=== PATIENT | male | born 1945 | race Caucasian/White ===

== ENCOUNTER 2019-05-19 09:46 | Emergency (ER) | payer OTHER ==
[~2019-05-19] VITALS: Ht 175.3 cm; Wt 90.7 kg
[~2019-05-19 09:46] MED LIST: AMLO10TA13; ASPI-404 PO; FUR40T PO; LISI-646 PO; POT20T PO
[2019-05-19 10:24] VITALS: BP 149/56
[2019-05-19] MEDS ORDERED: methylPREDNISolone SOD SUCC 125 MG/2 ML VL IV ONE (11:00)
[2019-05-19] MEDS ORDERED: EPINEPHrine HCL 1 MG/1 ML AMP SC ONE (11:00)
== END 2019-05-19 17:08 | disposition home or self-care (01) ==
LOC: ER 09:46
DX: T78.40XA Allergy, unspecified, initial encounter (principal); I10 Essential (primary) hypertension; E78.5 Hyperlipidemia, unspecified; M19.90 Unspecified osteoarthritis, unspecified site; F17.210 Nicotine dependence, cigarettes, uncomplicated; X58.XXXA Exposure to other specified factors, initial encounter

== ENCOUNTER 2020-05-24 09:11 | Emergency (ER) | payer OTHER ==
[~2020-05-24] VITALS: Ht 175.3 cm; Wt 93.0 kg
[~2020-05-24 09:11] MED LIST changes: +AMLO-496; -AMLO10TA13; -ASPI-404 PO; +ASPI-543 PO
[2020-05-24] MEDS ORDERED: cloNIDine HCL 0.1 MG TAB PO ONE (09:30)
[2020-05-24 10:17] LABS: Anion Gap 4 (5-15); Blood Urea Nitrogen 21 mg/dL (7-18); Calcium 7.9 mg/dL (8.5-10.1); Carbon Dioxide 25 mmol/L (21-32); Chloride 114 mmol/L (98-107); Glucose 103 mg/dL (74-106); Potassium 3.9 mmol/L (3.5-5.1); Sodium 143 mmol/L (136-145)
[2020-05-24 10:18] LABS: Basophils # (auto) 0 10 ^3/uL (0-0.2); Basophils % (auto) 0.5 % (0.0-2.0); Eosinophils # (auto) 0.4 10 ^3/uL (0-0.8); Eosinophils % (auto) 5.2 % (0.0-7.0); Hematocrit 37.9 % (41.0-53.0); Hemoglobin 12.4 g/dL (13.5-17.5); Lymphocytes # (auto) 1.1 10 ^3/uL (0.4-5.4); Mean Corpuscular Hemoglobin 27.7 pg (28.0-32.0); Mean Corpuscular Hgb Conc. 32.6 g/dL (32.0-36.0); Mean Corpuscular Volume 84.8 fL (80.0-100.0); Monocytes # (auto) 0.7 10 ^3/uL (0-1.3); Monocytes % (auto) 9.9 % (0.0-12.0); Neutrophils # (auto) 4.7 10 ^3/uL (1.6-8.6); Neutrophils % (auto) 68.4 % (37.0-80.0); Platelet Count (auto) 181 10^3/uL (140-450); Red Blood Cells 4.46 10^6/uL (4.5-5.90); Red Cell Distribution Width 16.8 % (11.8-14.3); White Blood Cell 6.8 10^3/uL (4.4-10.8)
[2020-05-24 10:23] LABS: Alanine Aminotransferase 38 U/L (16-61); Alkaline Phosphatase 64 U/L (45-117); Aspartate Aminotransferase 26 U/L (15-37); BUN/Creatinine Ratio 21.2; Bilirubin, Total 0.4 mg/dL (0.2-1.0); GFR African American 95 mL/min; GFR Non-African American 78 mL/min; Total Protein 7.3 g/dL (6.4-8.2)
[2020-05-24 11:33] VITALS: BP 169/54
== END 2020-05-24 12:33 | disposition home or self-care (01) ==
LOC: ER 09:11
DX: I16.0 Hypertensive urgency (principal); J18.9 Pneumonia, unspecified organism; F17.210 Nicotine dependence, cigarettes, uncomplicated; I10 Essential (primary) hypertension; E78.5 Hyperlipidemia, unspecified; Z79.82 Long term (current) use of aspirin; Z79.899 Other long term (current) drug therapy; Z20.822 Contact with and (suspected) exposure to COVID-19
CPT/HCPCS: 36415; 71045; 80053; 84484; 85025; 87426; 93005

== ENCOUNTER 2020-05-30 10:33 | Emergency (ER) | payer OTHER ==
[~2020-05-30] VITALS: Ht 175.3 cm; Wt 93.0 kg
[2020-05-30] MEDS ORDERED: cloNIDine HCL 0.1 MG TAB PO ONE ×2 (11:00)
[2020-05-30 11:08] LABS: Basophils # (auto) 0.1 10 ^3/uL (0-0.2); Basophils % (auto) 0.6 % (0.0-2.0); Eosinophils # (auto) 0.6 10 ^3/uL (0-0.8); Eosinophils % (auto) 5.9 % (0.0-7.0); Hematocrit 41.9 % (41.0-53.0); Hemoglobin 13.7 g/dL (13.5-17.5); Lymphocytes # (auto) 1.5 10 ^3/uL (0.4-5.4); Lymphocytes % (auto) 14.9 % (10.0-50.0); Mean Corpuscular Hemoglobin 28.1 pg (28.0-32.0); Mean Corpuscular Hgb Conc. 32.7 g/dL (32.0-36.0); Mean Corpuscular Volume 85.9 fL (80.0-100.0); Monocytes # (auto) 0.9 10 ^3/uL (0-1.3); Monocytes % (auto) 9.3 % (0.0-12.0); Neutrophils # (auto) 7.1 10 ^3/uL (1.6-8.6); Neutrophils % (auto) 69.3 % (37.0-80.0); Platelet Count (auto) 190 10^3/uL (140-450); Red Blood Cells 4.88 10^6/uL (4.5-5.90); Red Cell Distribution Width 17.6 % (11.8-14.3); White Blood Cell 10.2 10^3/uL (4.4-10.8)
[2020-05-30 11:27] LABS: Albumin 3.3 g/dL (3.4-5.0); Anion Gap 3 (5-15); BUN/Creatinine Ratio 21.8; Blood Urea Nitrogen 26 mg/dL (7-18); Calcium 8.6 mg/dL (8.5-10.1); Carbon Dioxide 27 mmol/L (21-32); Chloride 111 mmol/L (98-107); GFR African American 76 mL/min; GFR Non-African American 63 mL/min; Glucose 136 mg/dL (74-106); Potassium 3.8 mmol/L (3.5-5.1); Sodium 141 mmol/L (136-145)
[2020-05-30 11:32] LABS: Alanine Aminotransferase 38 U/L (16-61); Alkaline Phosphatase 68 U/L (45-117); Aspartate Aminotransferase 14 U/L (15-37); Bilirubin, Total 0.4 mg/dL (0.2-1.0); Total Protein 7.4 g/dL (6.4-8.2)
[2020-05-30 12:12] VITALS: BP 162/60
== END 2020-05-30 12:14 | disposition home or self-care (01) ==
LOC: ER 10:33
DX: I16.0 Hypertensive urgency (principal); I10 Essential (primary) hypertension; E78.5 Hyperlipidemia, unspecified; F17.210 Nicotine dependence, cigarettes, uncomplicated
CPT/HCPCS: 36415; 80053; 84484; 85025; 93005

== ENCOUNTER 2020-10-26 10:02 | Emergency (ER) | payer OTHER ==
[~2020-10-26] VITALS: Ht 175.3 cm; Wt 90.7 kg
[~2020-10-26 10:02] MED LIST changes: -LISI-646 PO; +LISI20TA28 PO
[2020-10-26 10:36] VITALS: BP 161/80
== END 2020-10-26 11:32 | disposition home or self-care (01) ==
LOC: ER 10:02
DX: J06.9 Acute upper respiratory infection, unspecified (principal); I10 Essential (primary) hypertension; F17.210 Nicotine dependence, cigarettes, uncomplicated
CPT/HCPCS: 71046

== ENCOUNTER 2021-04-10 03:33 | Emergency (ER) | payer OTHER ==
[~2021-04-10] VITALS: Ht 175.3 cm; Wt 93.0 kg
[2021-04-10] MEDS ORDERED: LISINOPRIL 10 MG TAB ONE (04:30)
[2021-04-10] MEDS ORDERED: LISINOPRIL 20 MG TAB PO ONE (05:00)
[2021-04-10 09:46] LABS: Basophils # (auto) 0 10 ^3/uL (0-0.2); Basophils % (auto) 0.7 % (0.0-2.0); Eosinophils # (auto) 0.3 10 ^3/uL (0-0.8); Eosinophils % (auto) 4.2 % (0.0-7.0); Hematocrit 39.6 % (41.0-53.0); Hemoglobin 12.9 g/dL (13.5-17.5); Lymphocytes # (auto) 1.2 10 ^3/uL (0.4-5.4); Lymphocytes % (auto) 18.9 % (10.0-50.0); Mean Corpuscular Hemoglobin 28.3 pg (28.0-32.0); Mean Corpuscular Hgb Conc. 32.6 g/dL (32.0-36.0); Monocytes # (auto) 0.7 10 ^3/uL (0-1.3); Monocytes % (auto) 10.5 % (0.0-12.0); Neutrophils # (auto) 4.2 10 ^3/uL (1.6-8.6); Neutrophils % (auto) 65.7 % (37.0-80.0); Nucleated Red Blood Cells % 0.1 %; Red Blood Cells 4.55 10^6/uL (4.5-5.90); Red Cell Distribution Width 14.6 % (11.8-14.3); White Blood Cell 6.4 10^3/uL (4.4-10.8)
[2021-04-10 10:04] LABS: Albumin 3.3 g/dL (3.4-5.0); Calcium 8.4 mg/dL (8.5-10.1); Potassium 3.9 mmol/L (3.5-5.1)
[2021-04-10 10:10] LABS: BUN/Creatinine Ratio 21.1; Bilirubin, Total 0.4 mg/dL (0.2-1.0); Total Protein 7.5 g/dL (6.4-8.2)
[2021-04-10] MEDS ORDERED: AML5T PO (12:39)
[2021-04-10 12:57] VITALS: BP 138/62
== END 2021-04-10 14:47 | disposition home or self-care (01) ==
LOC: ER 03:33 → EDUNIT# 03:33 → EDBD 03:33 → ER 12:59
DX: I16.0 Hypertensive urgency (principal); I10 Essential (primary) hypertension; Z20.822 Contact with and (suspected) exposure to COVID-19; F17.210 Nicotine dependence, cigarettes, uncomplicated; E78.5 Hyperlipidemia, unspecified
CPT/HCPCS: 36415; 70450; 71045; 80053; 84484; 85025; 87426; 93005

== ENCOUNTER 2021-04-17 11:49 | Inpatient (IN) | payer OTHER ==
[~2021-04-17] VITALS: Ht 175.3 cm; Wt 95.3 kg
[~2021-04-17 11:49] MED LIST changes: +AML5T PO
[2021-04-17] MEDS ORDERED: cloNIDine HCL 0.1 MG TAB ONE (11:54)
[2021-04-17] MEDS ORDERED: cloNIDine HCL 0.1 MG TAB PO ONE (12:00)
[2021-04-17 12:36] LABS: Basophils # (auto) 0.1 10 ^3/uL (0-0.2); Basophils % (auto) 0.5 % (0.0-2.0); Eosinophils # (auto) 0.2 10 ^3/uL (0-0.8); Eosinophils % (auto) 2.2 % (0.0-7.0); Hematocrit 37.1 % (41.0-53.0); Hemoglobin 12.1 g/dL (13.5-17.5); Lymphocytes # (auto) 1.9 10 ^3/uL (0.4-5.4); Lymphocytes % (auto) 17.7 % (10.0-50.0); Mean Corpuscular Hemoglobin 28.7 pg (28.0-32.0); Mean Corpuscular Hgb Conc. 32.7 g/dL (32.0-36.0); Mean Corpuscular Volume 87.8 fL (80.0-100.0); Monocytes # (auto) 0.8 10 ^3/uL (0-1.3); Monocytes % (auto) 7.8 % (0.0-12.0); Neutrophils # (auto) 7.7 10 ^3/uL (1.6-8.6); Neutrophils % (auto) 71.8 % (37.0-80.0); Nucleated Red Blood Cells % 0.2 %; Red Blood Cells 4.22 10^6/uL (4.5-5.90); Red Cell Distribution Width 14.8 % (11.8-14.3); White Blood Cell 10.7 10^3/uL (4.4-10.8)
[2021-04-17 12:52] LABS: Albumin 3.1 g/dL (3.4-5.0); Calcium 8.2 mg/dL (8.5-10.1); Magnesium 2.9 mg/dL (1.6-2.6); Potassium 3.3 mmol/L (3.5-5.1)
[2021-04-17 12:55] LABS: BUN/Creatinine Ratio 25.2; Bilirubin, Total 0.4 mg/dL (0.2-1.0); Total Protein 6.4 g/dL (6.4-8.2)
[2021-04-17] MEDS ORDERED: MORPHINE SULFATE INJECTION 2 MG/ML SYRG IV PRN ×3 (15:15→18:00)
[2021-04-17] MEDS ORDERED: POTASSIUM CHL 20 Meq TABLET PO ONE (15:15)
[2021-04-17] MEDS ORDERED: NITROGLYCERIN 0.4 MG SL TAB SL PRN ×2 (15:15→18:00)
[2021-04-17] MEDS ORDERED: IPRATROPIUM BROM 0.5 MG/2.5ML INH SOL NEB ONE (17:45)
[2021-04-17] MEDS ORDERED: NIFEdipine ER 30 MG TAB PO ONE (17:45)
[2021-04-17] MEDS ORDERED: methylPREDNISolone SOD SUCC 125 MG/2 ML VL IV ONE (17:45)
[2021-04-17] MEDS ORDERED: ALBUTEROL SULF 2.5 MG/0.5ML(0.5%) NEB SOLN NEB ONE (17:45)
[2021-04-17] MEDS ORDERED: AZITHROMYCIN 500MG/ 250ML 250 ML IV ONE (17:45)
[2021-04-17] MEDS ORDERED: BENAZEPRIL HCL 10 MG TAB PO ONE (17:45)
[2021-04-17] MEDS ORDERED: ENOXAPARIN SOD 40 MG/0.4 ML SYRINGE SC ONE (17:45)
[2021-04-17] MEDS ORDERED: ISOSORBIDE MONONITRATE ER 60 MG TAB PO ONE (18:00)
[2021-04-17] MEDS ORDERED: LORazepam 0.5 MG TAB PO PRN (18:00)
[2021-04-17] MEDS ORDERED: METOCLOPRAMIDE HCL 5MG/ml INJ 2ml VIAL IV PRN (18:00)
[2021-04-17] MEDS ORDERED: HYDROcodone-ACET 5/325MG TAB PO PRN (18:00)
[2021-04-17] MEDS ORDERED: ACETAMINOPHEN 325 MG TAB PO PRN (18:00)
[2021-04-17] MEDS ORDERED: DOCUSATE SOD 100 MG CAP PO PRN (18:00)
[2021-04-17 21:16] LABS: Cholesterol 130 mg/dL (< 200)
[2021-04-17 21:20] LABS: HDL Cholesterol 58 mg/dL (40-59); LDL Cholesterol 56 mg/dL (< 100); Triglycerides 122 mg/dL (< 150)
[2021-04-17] MEDS: FUROSEMIDE 20 MG/2 ML VIAL IV SCH (21:22)
[2021-04-17] MEDS: POTASSIUM CHL 20 Meq TABLET PO SCH (21:23)
[2021-04-17] MEDS: methylPREDNISolone SOD SUCC 40 MG/ML VL IV SCH (21:23)
[2021-04-17] MEDS: ATORVASTATIN 20 MG TAB PO SCH (21:23)
[2021-04-17] MEDS: IPRATROPIUM BROM 0.5 MG/2.5ML INH SOL NEB SCH (22:00)
[2021-04-18] MEDS: IPRATROPIUM BROM 0.5 MG/2.5ML INH SOL NEB SCH ×4 (02:00→14:38)
[2021-04-18] MEDS: ALBUTEROL SULF 2.5 MG/0.5ML(0.5%) NEB SOLN NEB PRN ×3 (06:29→14:38)
[2021-04-18] MEDS: methylPREDNISolone SOD SUCC 40 MG/ML VL IV SCH ×3 (08:53→21:49)
[2021-04-18] MEDS: FUROSEMIDE 20 MG/2 ML VIAL IV SCH ×2 (08:53→18:16)
[2021-04-18 09:33] LABS: Basophils # (auto) 0 10 ^3/uL (0-0.2); Basophils % (auto) 0.3 % (0.0-2.0); Eosinophils # (auto) 0 10 ^3/uL (0-0.8); Hematocrit 41.3 % (41.0-53.0); Hemoglobin 13.6 g/dL (13.5-17.5); Lymphocytes # (auto) 0.6 10 ^3/uL (0.4-5.4); Lymphocytes % (auto) 6.5 % (10.0-50.0); Mean Corpuscular Hemoglobin 28.4 pg (28.0-32.0); Mean Corpuscular Hgb Conc. 32.8 g/dL (32.0-36.0); Mean Corpuscular Volume 86.7 fL (80.0-100.0); Monocytes # (auto) 0.1 10 ^3/uL (0-1.3); Monocytes % (auto) 1.4 % (0.0-12.0); Neutrophils # (auto) 8.6 10 ^3/uL (1.6-8.6); Neutrophils % (auto) 91.8 % (37.0-80.0); Nucleated Red Blood Cells % 0.1 %; Red Blood Cells 4.77 10^6/uL (4.5-5.90); Red Cell Distribution Width 15.1 % (11.8-14.3); White Blood Cell 9.3 10^3/uL (4.4-10.8)
[2021-04-18 09:58] LABS: INR 0.99 (0.9-1.15); Partial Thromboplastin Time 26.8 sec (23.6-33.0)
[2021-04-18 10:01] LABS: Potassium 3.9 mmol/L (3.5-5.1)
[2021-04-18 10:02] LABS: % Iron Saturation 10.4 % (20-55)
[2021-04-18 10:15] LABS: Albumin 3.4 g/dL (3.4-5.0); BUN/Creatinine Ratio 25.2; Bilirubin, Total 0.8 mg/dL (0.2-1.0); Calcium 8.7 mg/dL (8.5-10.1); Magnesium 3.2 mg/dL (1.6-2.6); Phosphorus 4.2 mg/dL (2.5-4.90); Uric Acid 6.8 mg/dL (3.5-7.2)
[2021-04-18] MEDS: ISOSORBIDE MONONITRATE ER 60 MG TAB PO SCH (10:45)
[2021-04-18] MEDS: POTASSIUM CHL 20 Meq TABLET PO SCH (10:45)
[2021-04-18] MEDS: ASPirin 81 mg TAB PO SCH (10:45)
[2021-04-18] MEDS: NIFEdipine ER 30 MG TAB PO SCH (10:46)
[2021-04-18] MEDS: BENAZEPRIL HCL 10 MG TAB PO SCH (10:46)
[2021-04-18] MEDS: ENOXAPARIN SOD 40 MG/0.4 ML SYRINGE SC SCH (10:47)
[2021-04-18] MEDS: AZITHROMYCIN 500MG/ 250ML 250 ML IV SCH (11:02)
[2021-04-18] MEDS ORDERED: IPRATROPIUM BROM 0.5 MG/2.5ML INH SOL NEB PRN (18:00)
[2021-04-18] MEDS ORDERED: cloNIDine HCL 0.1 MG TAB PO PRN (18:30)
[2021-04-18] MEDS: ATORVASTATIN 20 MG TAB PO SCH (21:49)
[2021-04-18 23:10] VITALS: BP 151/65
[2021-04-19] MEDS ORDERED: HYDR10TA26 PO (00:27)
[2021-04-19] MEDS ORDERED: LISI40TA11 PO (00:27)
[2021-04-19] MEDS ORDERED: CHOL20007 PO (00:27)
[2021-04-19] MEDS ORDERED: ALBU2TAB4 INH (00:27)
[2021-04-19] MEDS ORDERED: OMEP20TA PO (00:27)
[2021-04-19] MEDS ORDERED: METO25TA5 PO (00:27)
[2021-04-19] MEDS ORDERED: ASPI325T4 PO (00:27)
[2021-04-19] MEDS ORDERED: BUSP10TA31 PO (00:27)
[2021-04-19] MEDS ORDERED: HYDR25TA5 PO (00:27)
[2021-04-19 00:33] LABS: Amphetamine Screen, Urine NEGATIVE (NEGATIVE); Barbiturate Scree,Urine NEGATIVE (NEGATIVE); Benzodiazephine Screen, Urine NEGATIVE (NEGATIVE); Cannabinoid Screen, Urine NEGATIVE (NEGATIVE); Cocaine Screen, Urine NEGATIVE (NEGATIVE); Opiate Scree,Urine NEGATIVE (NEGATIVE); Phencyclidine Screen, Urine NEGATIVE (NEGATIVE)
[2021-04-19 00:37] LABS: Urine Bacteria MANY /hpf (None Seen); Urine Blood Negative /uL (Negative); Urine Mucus FEW (None Seen); Urine Specific Gravity 1.014 (1.001-1.035); Urine Sperm PRESENT /hpf (None Seen); Urine WBC 4 /hpf (0 - 3)
[2021-04-19] MEDS: methylPREDNISolone SOD SUCC 40 MG/ML VL IV SCH ×2 (05:18→14:00)
[2021-04-19] MEDS: FUROSEMIDE 20 MG/2 ML VIAL IV SCH (05:19)
[2021-04-19 05:35] VITALS: BP 149/77
[2021-04-19 07:45] LABS: BUN/Creatinine Ratio 33.6; Calcium 8.6 mg/dL (8.5-10.1); Magnesium 2.5 mg/dL (1.6-2.6); Potassium 4.4 mmol/L (3.5-5.1)
[2021-04-19] MEDS ORDERED: POTASSIUM CHL 20 Meq TABLET PO SCH (10:00)
[2021-04-19] MEDS: BENAZEPRIL HCL 10 MG TAB PO SCH (10:12)
[2021-04-19] MEDS: NIFEdipine ER 30 MG TAB PO SCH (10:13)
[2021-04-19] MEDS: AZITHROMYCIN 500MG/ 250ML 250 ML IV SCH (10:14)
[2021-04-19] MEDS: ASPirin 81 mg TAB PO SCH (10:14)
[2021-04-19] MEDS: ENOXAPARIN SOD 40 MG/0.4 ML SYRINGE SC SCH (10:14)
[2021-04-19] MEDS: ISOSORBIDE MONONITRATE ER 60 MG TAB PO SCH ×2 (10:14→12:03)
[2021-04-19 10:32] VITALS: BP 152/75
[2021-04-19] MEDS ORDERED: NIFEdipine ER 30 MG TAB PO ONE (11:00)
[2021-04-19] MEDS ORDERED: PRED10TA PO (12:57)
[2021-04-19] MEDS ORDERED: PRED20TA2 PO (12:57)
[2021-04-19] MEDS ORDERED: AZIT250T PO (12:57)
[2021-04-19] MEDS ORDERED: PRE5T PO (12:57)
[2021-04-19 13:00] VITALS: BP 140/73
[2021-04-19] MEDS ORDERED: ERGOCALCIFEROL 50,000 UNIT(1.25MG) CAP PO SCH (13:00)
[2021-04-19 15:30] VITALS: BP 140/73
[2021-04-20] MEDS ORDERED: NIFEdipine ER 30 MG TAB PO SCH (10:00)
== END 2021-04-19 16:30 | disposition home or self-care (01) | DRG 291 ==
LOC: ER 11:49 → TELE 15:54 → TELE-CENTR 04-18 20:45
PROVIDERS: ADMIT Hospitalist; ATTEND Internal Medicine
DX: I11.0 Hypertensive heart disease with heart failure (principal); J96.20 Acute and chronic respiratory failure, unspecified whether with hypoxia or hypercapnia; I50.33 Acute on chronic diastolic (congestive) heart failure; J44.1 Chronic obstructive pulmonary disease with (acute) exacerbation; I16.1 Hypertensive emergency; J20.9 Acute bronchitis, unspecified; E66.01 Morbid (severe) obesity due to excess calories; D64.9 Anemia, unspecified; E78.5 Hyperlipidemia, unspecified; F17.210 Nicotine dependence, cigarettes, uncomplicated; M19.90 Unspecified osteoarthritis, unspecified site; Z86.73 Personal history of transient ischemic attack (TIA), and cerebral infarction without residual deficits; Z91.19 Patient's noncompliance with other medical treatment and regimen; Z68.31 Body mass index [BMI] 31.0-31.9, adult; Z20.822 Contact with and (suspected) exposure to COVID-19
CPT/HCPCS: 36415; 71045; 80048; 80053; 80061; 80307; 81001; 82306; 82728; 83036; 83540; 83550; 83735; 83880; 84100; 84443; 84484; 84550; 85025; 85379; 85610; 85730; 87040; 87086; 87426; 93005; 93306; 94640; 96365; 96375; 99291; G0378

== ENCOUNTER 2022-02-19 12:22 | Emergency (ER) | payer OTHER ==
[~2022-02-19] VITALS: Ht 175.3 cm; Wt 102.0 kg
[~2022-02-19 12:22] MED LIST changes: +ALBU2TAB4 INH; -AML5T PO; -AMLO-496; +AZIT250T PO; +BUSP10TA31 PO; +CHOL20007 PO; +HYDR10TA26 PO; +HYDR25TA5 PO; +METO25TA5 PO; +OMEP20TA PO; +PRE5T PO; +PRED10TA PO; +PRED20TA2 PO
[2022-02-19 13:01] VITALS: BP 156/78
== END 2022-02-19 16:14 | disposition left against medical advice (07) ==
LOC: ER 12:22
DX: R22.42 Localized swelling, mass and lump, left lower limb (principal); J44.9 Chronic obstructive pulmonary disease, unspecified; E78.5 Hyperlipidemia, unspecified; F17.210 Nicotine dependence, cigarettes, uncomplicated; I11.0 Hypertensive heart disease with heart failure; I50.9 Heart failure, unspecified; Z86.73 Personal history of transient ischemic attack (TIA), and cerebral infarction without residual deficits; Z79.82 Long term (current) use of aspirin; Z79.2 Long term (current) use of antibiotics; Z79.899 Other long term (current) drug therapy

== ENCOUNTER 2022-05-13 09:43 | Inpatient (IN) | payer MEDICARE, MEDICAID ==
[~2022-05-13] VITALS: Ht 175.3 cm; Wt 105.0 kg
[2022-05-13 10:31] LABS: Basophils # (auto) 0 10 ^3/uL (0-0.2); Basophils % (auto) 0.5 % (0.0-2.0); Eosinophils # (auto) 0.4 10 ^3/uL (0-0.8); Eosinophils % (auto) 3.8 % (0.0-7.0); Hematocrit 34.6 % (41.0-53.0); Hemoglobin 10.9 g/dL (13.5-17.5); Lymphocytes # (auto) 1.6 10 ^3/uL (0.4-5.4); Lymphocytes % (auto) 17.1 % (10.0-50.0); Mean Corpuscular Hemoglobin 26.1 pg (28.0-32.0); Mean Corpuscular Hgb Conc. 31.6 g/dL (32.0-36.0); Mean Corpuscular Volume 82.8 fL (80.0-100.0); Monocytes # (auto) 0.7 10 ^3/uL (0-1.3); Monocytes % (auto) 7.9 % (0.0-12.0); Neutrophils # (auto) 6.5 10 ^3/uL (1.6-8.6); Neutrophils % (auto) 70.7 % (37.0-80.0); Nucleated Red Blood Cells % 0.1 %; Red Blood Cells 4.19 10^6/uL (4.5-5.90); Red Cell Distribution Width 16.3 % (11.8-14.3); White Blood Cell 9.3 10^3/uL (4.4-10.8)
[2022-05-13 10:39] LABS: Albumin 3.1 g/dL (3.4-5.0); BUN/Creatinine Ratio 16.8; Calcium 8.6 mg/dL (8.5-10.1); Potassium 4.5 mmol/L (3.5-5.1)
[2022-05-13 10:42] LABS: Bilirubin, Total 0.6 mg/dL (0.2-1.0); Total Protein 7.2 g/dL (6.4-8.2)
[2022-05-13] MEDS ORDERED: FUROSEMIDE 40 MG/4 ML VIAL IV ONE (11:00)
[2022-05-13] MEDS ORDERED: cloNIDine HCL 0.1 MG TAB PO ONE (11:00)
[2022-05-13] MEDS: methylPREDNISolone SOD SUCC 40 MG/ML VL IV SCH ×2 (14:53→22:54)
[2022-05-13] MEDS ORDERED: hydrALAZINE HCL 20 MG/ML VL IV PRN (16:00)
[2022-05-13] MEDS ORDERED: ONDANSETRON HCL 4 MG/2 ML VIAL IV PRN (16:15)
[2022-05-13] MEDS ORDERED: DOCUSATE SOD 100 MG CAP PO PRN (16:15)
[2022-05-13] MEDS ORDERED: ACETAMINOPHEN 325 MG TAB PO PRN (16:15)
[2022-05-13] MEDS: ALBUTEROL SULF 2.5 MG/0.5ML(0.5%) NEB SOLN NEB SCH ×2 (18:00→18:11)
[2022-05-13] MEDS: IPRATROPIUM BROM 0.5 MG/2.5ML INH SOL NEB SCH ×2 (18:00→18:10)
[2022-05-13] MEDS ORDERED: ALBUTEROL MEDNEB 2.5 mg/3ml NEB ONE ×2 (18:07→23:49)
[2022-05-13 19:00] VITALS: BP 152/56
[2022-05-13] MEDS: HCTZ 25 MG TAB PO SCH (19:30)
[2022-05-13] MEDS: LISINOPRIL 20 MG TAB PO SCH (19:31)
[2022-05-13] MEDS: FUROSEMIDE 40 MG/4 ML VIAL IV SCH (22:54)
[2022-05-13] MEDS: SODIUM CHLOR 0.9% PF (SALINE LOCK) 10ML VIAL/SYR IV SCH (22:54)
[2022-05-13] MEDS: busPIRone HCL 10 MG TAB PO SCH (22:55)
[2022-05-13] MEDS: hydrALAZINE HCL 10 MG TAB PO SCH (22:55)
[2022-05-13] MEDS: METOPROLOL TARTRATE 25 MG TAB PO SCH (22:55)
[2022-05-14] MEDS: IPRATROPIUM BROM 0.5 MG/2.5ML INH SOL NEB SCH ×4 (00:20→18:43)
[2022-05-14] MEDS: ALBUTEROL SULF 2.5 MG/0.5ML(0.5%) NEB SOLN NEB SCH ×4 (00:20→18:43)
[2022-05-14 03:53] LABS: Urine Bacteria NONE SEEN /hpf (None Seen); Urine Blood Negative /uL (Negative); Urine Specific Gravity 1.034 (1.001-1.035); Urine WBC <1 /hpf (0 - 3)
[2022-05-14] MEDS ORDERED: HYDROcodone-ACET 5/325MG TAB PO PRN (04:30)
[2022-05-14] MEDS ORDERED: ALBUTEROL MEDNEB 2.5 mg/3ml NEB ONE ×3 (05:30→18:17)
[2022-05-14] MEDS: hydrALAZINE HCL 10 MG TAB PO SCH ×3 (06:06→23:19)
[2022-05-14] MEDS: SODIUM CHLOR 0.9% PF (SALINE LOCK) 10ML VIAL/SYR IV SCH ×2 (06:06→13:32)
[2022-05-14] MEDS: methylPREDNISolone SOD SUCC 40 MG/ML VL IV SCH ×3 (06:06→23:19)
[2022-05-14] MEDS ORDERED: AZITHROMYCIN 500MG/ 250ML 250 ML IV SCH (10:00)
[2022-05-14] MEDS: busPIRone HCL 10 MG TAB PO SCH ×2 (10:34→23:20)
[2022-05-14] MEDS: cefTRIAXone 1GM/50ML D5W 50 ML IV SCH (10:34)
[2022-05-14] MEDS: CHOLECALCIFEROL (VITD3) 2,000 UNIT CAP/TAB PO SCH (10:35)
[2022-05-14] MEDS: HCTZ 25 MG TAB PO SCH (10:35)
[2022-05-14] MEDS: FUROSEMIDE 40 MG/4 ML VIAL IV SCH (10:35)
[2022-05-14] MEDS: LISINOPRIL 20 MG TAB PO SCH (10:36)
[2022-05-14] MEDS: PANTOPRAZOLE 40 MG TAB PO SCH (10:36)
[2022-05-14] MEDS: METOPROLOL TARTRATE 25 MG TAB PO SCH ×2 (10:36→23:20)
[2022-05-14] MEDS: ASPirin-EC 81 mg tab PO SCH (10:36)
[2022-05-14] MEDS ORDERED: NIFEdipine ER 30 MG TAB PO ONE (12:45)
[2022-05-14 23:15] VITALS: BP 148/48
[2022-05-14] MEDS: DOXYCYCLINE 100 MG TAB/CAP PO SCH (23:20)
[2022-05-15] MEDS ORDERED: ALBUTEROL MEDNEB 2.5 mg/3ml NEB ONE ×2 (00:17→05:48)
[2022-05-15] MEDS: IPRATROPIUM BROM 0.5 MG/2.5ML INH SOL NEB SCH ×6 (00:19→18:00)
[2022-05-15] MEDS: ALBUTEROL SULF 2.5 MG/0.5ML(0.5%) NEB SOLN NEB SCH ×3 (00:19→06:30)
[2022-05-15] MEDS: SODIUM CHLOR 0.9% PF (SALINE LOCK) 10ML VIAL/SYR IV SCH ×4 (00:48→22:00)
[2022-05-15 05:00] VITALS: BP 139/52
[2022-05-15] MEDS: methylPREDNISolone SOD SUCC 40 MG/ML VL IV SCH ×2 (05:28→14:30)
[2022-05-15] MEDS: hydrALAZINE HCL 10 MG TAB PO SCH ×3 (05:29→22:44)
[2022-05-15 06:18] LABS: Basophils # (auto) 0 10 ^3/uL (0-0.2); Basophils % (auto) 0.1 % (0.0-2.0); Eosinophils # (auto) 0 10 ^3/uL (0-0.8); Lymphocytes # (auto) 0.6 10 ^3/uL (0.4-5.4); Mean Corpuscular Hgb Conc. 31.6 g/dL (32.0-36.0); Monocytes # (auto) 0.4 10 ^3/uL (0-1.3)
[2022-05-15 06:21] LABS: Hematocrit 33.8 % (41.0-53.0); Hemoglobin 10.7 g/dL (13.5-17.5); Lymphocytes % (auto) 4.1 % (10.0-50.0); Mean Corpuscular Hemoglobin 25.8 pg (28.0-32.0); Mean Corpuscular Volume 81.4 fL (80.0-100.0); Monocytes % (auto) 2.5 % (0.0-12.0); Neutrophils # (auto) 14.1 10 ^3/uL (1.6-8.6); Neutrophils % (auto) 93.3 % (37.0-80.0); Red Blood Cells 4.15 10^6/uL (4.5-5.90); Red Cell Distribution Width 16.6 % (11.8-14.3); White Blood Cell 15.1 10^3/uL (4.4-10.8)
[2022-05-15 06:35] LABS: BUN/Creatinine Ratio 21.6; Calcium 8.4 mg/dL (8.5-10.1); Magnesium 2.5 mg/dL (1.6-2.6); Phosphorus 5.7 mg/dL (2.5-4.90); Potassium 4.1 mmol/L (3.5-5.1)
[2022-05-15 09:00] VITALS: BP 150/56
[2022-05-15] MEDS ORDERED: FUROSEMIDE 20 MG/2 ML VIAL IV SCH (10:00)
[2022-05-15] MEDS: ALBUTEROL MEDNEB 2.5 mg/3ml NEB NEB SCH ×3 (11:17→18:00)
[2022-05-15] MEDS: DOXYCYCLINE 100 MG TAB/CAP PO SCH ×2 (11:31→22:43)
[2022-05-15] MEDS: ENOXAPARIN SOD 40 MG/0.4 ML SYRINGE SC SCH (11:35)
[2022-05-15] MEDS: CHOLECALCIFEROL (VITD3) 2,000 UNIT CAP/TAB PO SCH (11:35)
[2022-05-15] MEDS: NIFEdipine ER 30 MG TAB PO SCH (11:35)
[2022-05-15] MEDS: busPIRone HCL 10 MG TAB PO SCH ×2 (11:35→22:49)
[2022-05-15] MEDS: PANTOPRAZOLE 40 MG TAB PO SCH (11:35)
[2022-05-15] MEDS: ASPirin-EC 81 mg tab PO SCH (11:35)
[2022-05-15] MEDS: cefTRIAXone 1GM/50ML D5W 50 ML IV SCH (11:36)
[2022-05-15] MEDS: METOPROLOL TARTRATE 25 MG TAB PO SCH ×2 (11:37→22:44)
[2022-05-15 13:00] VITALS: BP_SYST 150; BP_SYST 161; BP_DIAS 67; BP_DIAS 71
[2022-05-15 14:00] VITALS: BP 161/71
[2022-05-15 21:30] VITALS: BP 116/65
[2022-05-16 05:00] VITALS: BP 136/58
[2022-05-16] MEDS: SODIUM CHLOR 0.9% PF (SALINE LOCK) 10ML VIAL/SYR IV SCH ×2 (05:21→14:00)
[2022-05-16] MEDS: hydrALAZINE HCL 10 MG TAB PO SCH ×2 (05:21→14:00)
[2022-05-16] MEDS: IPRATROPIUM BROM 0.5 MG/2.5ML INH SOL NEB SCH ×3 (06:00→12:00)
[2022-05-16] MEDS: ALBUTEROL MEDNEB 2.5 mg/3ml NEB NEB SCH ×3 (06:00→12:00)
[2022-05-16 06:59] LABS: Calcium 8.4 mg/dL (8.5-10.1); Potassium 4.1 mmol/L (3.5-5.1)
[2022-05-16 08:05] VITALS: BP 156/62
[2022-05-16] MEDS: DOXYCYCLINE 100 MG TAB/CAP PO SCH (09:40)
[2022-05-16] MEDS: ASPirin-EC 81 mg tab PO SCH (09:40)
[2022-05-16] MEDS: METOPROLOL TARTRATE 25 MG TAB PO SCH (09:41)
[2022-05-16] MEDS: cefTRIAXone 1GM/50ML D5W 50 ML IV SCH (09:41)
[2022-05-16] MEDS: CHOLECALCIFEROL (VITD3) 2,000 UNIT CAP/TAB PO SCH (09:41)
[2022-05-16] MEDS: busPIRone HCL 10 MG TAB PO SCH (09:41)
[2022-05-16] MEDS: NIFEdipine ER 30 MG TAB PO SCH (09:41)
[2022-05-16] MEDS: PANTOPRAZOLE 40 MG TAB PO SCH (09:42)
[2022-05-16] MEDS: ENOXAPARIN SOD 40 MG/0.4 ML SYRINGE SC SCH (09:42)
[2022-05-16 12:00] VITALS: BP 144/49
== END 2022-05-16 18:20 | disposition left against medical advice (07) | DRG 291 ==
LOC: ER 09:43 → TELE 16:14 → TELE-WESTW 05-14 22:15
PROVIDERS: ADMIT Internal Medicine; ATTEND Internal Medicine
DX: I11.0 Hypertensive heart disease with heart failure (principal); I50.43 Acute on chronic combined systolic (congestive) and diastolic (congestive) heart failure; J96.01 Acute respiratory failure with hypoxia; E44.1 Mild protein-calorie malnutrition; J44.1 Chronic obstructive pulmonary disease with (acute) exacerbation; N39.0 Urinary tract infection, site not specified; J91.8 Pleural effusion in other conditions classified elsewhere; I16.0 Hypertensive urgency; R91.8 Other nonspecific abnormal finding of lung field; Z20.822 Contact with and (suspected) exposure to COVID-19; E66.9 Obesity, unspecified; Z53.29 Procedure and treatment not carried out because of patient's decision for other reasons; Z68.34 Body mass index [BMI] 34.0-34.9, adult; Z79.899 Other long term (current) drug therapy; Z82.49 Family history of ischemic heart disease and other diseases of the circulatory system; Z83.3 Family history of diabetes mellitus; Z87.891 Personal history of nicotine dependence; Z86.73 Personal history of transient ischemic attack (TIA), and cerebral infarction without residual deficits
CPT/HCPCS: 36415; 71045; 71275; 80048; 80053; 81001; 82306; 83735; 83880; 84100; 84484; 85025; 85379; 87426; 93005; 93306; 93970; 94640; 96374; G0378; J0696

== ENCOUNTER 2022-05-27 10:26 | Inpatient (IN) | payer MEDICARE, MEDICAID ==
[~2022-05-27] VITALS: Ht 165.1 cm; Wt 106.3 kg
[2022-05-27 11:03] LABS: Basophils # (auto) 0.1 10 ^3/uL (0-0.2); Eosinophils # (auto) 0.2 10 ^3/uL (0-0.8); Lymphocytes # (auto) 1.2 10 ^3/uL (0.4-5.4)
[2022-05-27 11:05] LABS: Basophils % (auto) 0.5 % (0.0-2.0); Eosinophils % (auto) 1.5 % (0.0-7.0); Hematocrit 32.8 % (41.0-53.0); Hemoglobin 10.6 g/dL (13.5-17.5); Lymphocytes % (auto) 9.4 % (10.0-50.0); Mean Corpuscular Hemoglobin 26.5 pg (28.0-32.0); Mean Corpuscular Hgb Conc. 32.3 g/dL (32.0-36.0); Mean Corpuscular Volume 82.1 fL (80.0-100.0); Monocytes # (auto) 0.8 10 ^3/uL (0-1.3); Monocytes % (auto) 6.4 % (0.0-12.0); Neutrophils # (auto) 10.5 10 ^3/uL (1.6-8.6); Neutrophils % (auto) 82.2 % (37.0-80.0); Nucleated Red Blood Cells % 0.3 %; Red Cell Distribution Width 17.2 % (11.8-14.3); White Blood Cell 12.7 10^3/uL (4.4-10.8)
[2022-05-27 11:11] LABS: INR 1.16 (0.9-1.15); Partial Thromboplastin Time 29.1 sec (24.6-33.4)
[2022-05-27 11:16] LABS: Albumin 3.3 g/dL (3.4-5.0); Calcium 8.3 mg/dL (8.5-10.1); Potassium 4.2 mmol/L (3.5-5.1)
[2022-05-27 11:20] LABS: BUN/Creatinine Ratio 14.7; Bilirubin, Total 0.6 mg/dL (0.2-1.0); Total Protein 6.7 g/dL (6.4-8.2)
[2022-05-27] MEDS ORDERED: methylPREDNISolone SOD SUCC 125 MG/2 ML VL IV ONE (11:45)
[2022-05-27] MEDS ORDERED: ALBUTEROL SULF 2.5 MG/0.5ML(0.5%) NEB SOLN HHN ONE (11:45)
[2022-05-27] MEDS ORDERED: IPRATROPIUM BROM 0.5 MG/2.5ML INH SOL HHN ONE (11:45)
[2022-05-27] MEDS ORDERED: ALBUTEROL MEDNEB 2.5 mg/3ml NEB ONE (12:13)
[2022-05-27] MEDS ORDERED: MORPHINE SULFATE INJ 2 MG/ml SYRG IV PRN ×2 (14:15)
[2022-05-27] MEDS ORDERED: HYDROcodone-ACET 5/325MG TAB PO PRN (14:15)
[2022-05-27] MEDS ORDERED: NITROGLYCERIN 0.4 MG SL TAB SL PRN (14:15)
[2022-05-27] MEDS ORDERED: ACETAMINOPHEN 325 MG TAB PO PRN (14:15)
[2022-05-27] MEDS ORDERED: VANCOMYCIN PER PHARMACY 0 MG IV SCH (14:30)
[2022-05-27] MEDS ORDERED: VANCOMYCIN 1GM/250ML 250 ML IV ONE (15:00)
[2022-05-27] MEDS ORDERED: IPRATROPIUM BROM 0.5 MG/2.5ML INH SOL NEB PRN (15:00)
[2022-05-27] MEDS ORDERED: FUROSEMIDE 20 MG/2 ML VIAL IV ONE (15:00)
[2022-05-27] MEDS ORDERED: ALBUTEROL MEDNEB 2.5 mg/3ml NEB NEB PRN (15:00)
[2022-05-27] MEDS ORDERED: IOHEXOL 350 MG/ML 100ML IJ ONE (15:05)
[2022-05-27 15:06] LABS: Cholesterol 114 mg/dL (< 200)
[2022-05-27 15:07] VITALS: BP 187/81
[2022-05-27 15:09] LABS: HDL Cholesterol 41 mg/dL (40-59); LDL Cholesterol 69 mg/dL (< 100); Triglycerides 108 mg/dL (< 150)
[2022-05-27] MEDS: IPRATROPIUM BROM 0.5 MG/2.5ML INH SOL NEB SCH (18:20)
[2022-05-27] MEDS: ALBUTEROL MEDNEB 2.5 mg/3ml NEB NEB SCH (18:20)
[2022-05-27] MEDS ORDERED: hydrALAZINE HCL 20 MG/ML VL IV PRN (20:15)
[2022-05-27] MEDS: methylPREDNISolone SOD SUCC 125 MG/2 ML VL IV SCH ×2 (23:11)
[2022-05-27] MEDS: METOPROLOL TARTRATE 25 MG TAB PO SCH (23:12)
[2022-05-28] MEDS: VANCOMYCIN 1GM/250ML 250 ML IV SCH ×2 (05:18→16:00)
[2022-05-28 05:26] LABS: Basophils # (auto) 0 10 ^3/uL (0-0.2); Eosinophils # (auto) 0 10 ^3/uL (0-0.8); Hemoglobin 9.9 g/dL (13.5-17.5); Lymphocytes # (auto) 0.5 10 ^3/uL (0.4-5.4); Mean Corpuscular Hemoglobin 26.4 pg (28.0-32.0); Monocytes # (auto) 0.1 10 ^3/uL (0-1.3)
[2022-05-28 05:28] LABS: Hematocrit 30.6 % (41.0-53.0); Mean Corpuscular Hgb Conc. 32.4 g/dL (32.0-36.0); Mean Corpuscular Volume 81.3 fL (80.0-100.0); Monocytes % (auto) 0.6 % (0.0-12.0); Neutrophils # (auto) 11.5 10 ^3/uL (1.6-8.6); Neutrophils % (auto) 95.4 % (37.0-80.0); Nucleated Red Blood Cells % 0.1 %; Red Blood Cells 3.77 10^6/uL (4.5-5.90); Red Cell Distribution Width 17.1 % (11.8-14.3); White Blood Cell 12.1 10^3/uL (4.4-10.8)
[2022-05-28] MEDS: IPRATROPIUM BROM 0.5 MG/2.5ML INH SOL NEB SCH ×3 (05:44→18:45)
[2022-05-28] MEDS: ALBUTEROL MEDNEB 2.5 mg/3ml NEB NEB SCH ×3 (05:44→18:45)
[2022-05-28 06:02] LABS: Albumin 3.3 g/dL (3.4-5.0); Calcium 8.2 mg/dL (8.5-10.1)
[2022-05-28 06:06] LABS: BUN/Creatinine Ratio 14.2; Bilirubin, Total 0.7 mg/dL (0.2-1.0); Total Protein 6.8 g/dL (6.4-8.2)
[2022-05-28] MEDS: methylPREDNISolone SOD SUCC 125 MG/2 ML VL IV SCH ×2 (10:00→10:15)
[2022-05-28] MEDS: FUROSEMIDE 20 MG/2 ML VIAL IV SCH (10:15)
[2022-05-28] MEDS: HCTZ 25 MG TAB PO SCH (10:16)
[2022-05-28] MEDS: PANTOPRAZOLE 40 MG/10 ML VIAL INJ IV SCH (10:16)
[2022-05-28] MEDS: ENOXAPARIN SOD 40 MG/0.4 ML SYRINGE SC SCH (10:16)
[2022-05-28] MEDS: LISINOPRIL 20 MG TAB PO SCH (10:16)
[2022-05-28] MEDS: METOPROLOL TARTRATE 25 MG TAB PO SCH (10:17)
[2022-05-28] MEDS: POTASSIUM CHL 20 Meq TABLET PO SCH (10:17)
[2022-05-28] MEDS: ASPirin-EC 81 mg tab PO SCH (10:18)
[2022-05-28 13:45] VITALS: BP 144/54
[2022-05-28] MEDS ORDERED: TEMAZEPAM 15 MG CAP PO PRN (13:45)
[2022-05-28 18:24] VITALS: BP 162/64
[2022-05-28] MEDS: DOXYCYCLINE 100 MG TAB/CAP PO SCH (20:58)
[2022-05-29 02:58] LABS: Basophils # (auto) 0 10 ^3/uL (0-0.2); Basophils % (auto) 0.1 % (0.0-2.0); Eosinophils # (auto) 0 10 ^3/uL (0-0.8); Hematocrit 29.8 % (41.0-53.0); Hemoglobin 9.5 g/dL (13.5-17.5); Lymphocytes # (auto) 0.7 10 ^3/uL (0.4-5.4); Lymphocytes % (auto) 4.1 % (10.0-50.0); Mean Corpuscular Hemoglobin 25.7 pg (28.0-32.0); Mean Corpuscular Hgb Conc. 31.7 g/dL (32.0-36.0); Monocytes # (auto) 0.8 10 ^3/uL (0-1.3); Monocytes % (auto) 4.5 % (0.0-12.0); Neutrophils # (auto) 15.5 10 ^3/uL (1.6-8.6); Neutrophils % (auto) 91.3 % (37.0-80.0); Nucleated Red Blood Cells % 0.1 %; Red Blood Cells 3.68 10^6/uL (4.5-5.90); Red Cell Distribution Width 17.1 % (11.8-14.3); White Blood Cell 16.9 10^3/uL (4.4-10.8)
[2022-05-29 03:14] LABS: BUN/Creatinine Ratio 22.3; Calcium 8.3 mg/dL (8.5-10.1); Potassium 4.8 mmol/L (3.5-5.1)
[2022-05-29] MEDS: VANCOMYCIN 1GM/250ML 250 ML IV SCH (04:01)
[2022-05-29 04:10] LABS: Urine WBC None Seen /hpf (0 - 3)
[2022-05-29] MEDS: BUDESONIDE (INHALATION) 0.5 MG/2 ML NEB NEB SCH ×2 (04:12→06:21)
[2022-05-29 04:32] LABS: Urine Bacteria NONE SEEN /hpf (None Seen); Urine Blood Negative /uL (Negative); Urine Specific Gravity 1.008 (1.001-1.035)
[2022-05-29 04:40] LABS: Alcohol, Urine < 3.0 mg/dL (0-10); Amphetamine Screen, Urine NEGATIVE (NEGATIVE); Barbiturate Scree,Urine NEGATIVE (NEGATIVE); Benzodiazephine Screen, Urine NEGATIVE (NEGATIVE); Cannabinoid Screen, Urine NEGATIVE (NEGATIVE); Cocaine Screen, Urine NEGATIVE (NEGATIVE); Opiate Scree,Urine NEGATIVE (NEGATIVE); Phencyclidine Screen, Urine NEGATIVE (NEGATIVE)
[2022-05-29 05:46] VITALS: BP 104/60
[2022-05-29] MEDS: IPRATROPIUM BROM 0.5 MG/2.5ML INH SOL NEB SCH ×2 (06:21→11:46)
[2022-05-29] MEDS: ALBUTEROL MEDNEB 2.5 mg/3ml NEB NEB SCH ×2 (06:21→11:46)
[2022-05-29] MEDS: FUROSEMIDE 20 MG/2 ML VIAL IV SCH (08:04)
[2022-05-29] MEDS: HCTZ 25 MG TAB PO SCH (08:05)
[2022-05-29] MEDS: DOXYCYCLINE 100 MG TAB/CAP PO SCH (08:05)
[2022-05-29] MEDS: LISINOPRIL 20 MG TAB PO SCH (08:06)
[2022-05-29] MEDS: ENOXAPARIN SOD 40 MG/0.4 ML SYRINGE SC SCH (08:06)
[2022-05-29] MEDS: ASPirin-EC 81 mg tab PO SCH (08:06)
[2022-05-29] MEDS: POTASSIUM CHL 20 Meq TABLET PO SCH (08:06)
[2022-05-29] MEDS ORDERED: cefTRIAXone 1GM/50ML D5W 50 ML IV SCH (09:00)
[2022-05-29 09:05] VITALS: BP 180/70
[2022-05-29] MEDS: PANTOPRAZOLE 40 MG/10 ML VIAL INJ IV SCH (09:49)
[2022-05-29] MEDS ORDERED: methylPREDNISolone SOD SUCC 125 MG/2 ML VL IV SCH (10:00)
[2022-05-29] MEDS ORDERED: AZITHROMYCIN 250 MG TAB PO SCH (10:00)
[2022-05-29 10:50] VITALS: BP 173/67
[2022-05-29 11:52] VITALS: BP 168/78
[2022-05-29] MEDS ORDERED: NIFEdipine ER 30 MG TAB PO ONE (12:15)
[2022-05-29] MEDS ORDERED: LEVO500T31 PO (12:16)
[2022-05-29] MEDS ORDERED: NIFE1TAB36 PO (12:16)
[2022-05-29] MEDS ORDERED: LISI40TA11 PO (12:16)
[2022-05-29] MEDS ORDERED: TEMA15CA2 PO (12:23)
[2022-05-29 13:36] VITALS: BP 163/60
[2022-05-29] MEDS ORDERED: hydrALAZINE HCL 20 MG/ML VL IV ONE (14:00)
[2022-05-29 15:23] VITALS: BP 149/50
[2022-05-30] MEDS ORDERED: methylPREDNISolone SOD SUCC 40 MG/ML VL IV SCH (10:00)
== END 2022-05-29 16:05 | disposition home or self-care (01) | DRG 871 ==
LOC: ER 10:26 → TELE 14:18 → TELE-WESTW 05-28 13:19 → TELE-E-ADS 05-28 13:30 → TELE-WESTW 05-28 18:50
PROVIDERS: ADMIT Registered Nurse; ATTEND Nurse Practitioner Acute Care
DX: A41.9 Sepsis, unspecified organism (principal); I50.31 Acute diastolic (congestive) heart failure; J96.21 Acute and chronic respiratory failure with hypoxia; J15.6 Pneumonia due to other Gram-negative bacteria; E44.1 Mild protein-calorie malnutrition; J44.1 Chronic obstructive pulmonary disease with (acute) exacerbation; J44.0 Chronic obstructive pulmonary disease with (acute) lower respiratory infection; I11.0 Hypertensive heart disease with heart failure; I27.20 Pulmonary hypertension, unspecified; M19.90 Unspecified osteoarthritis, unspecified site; Z20.822 Contact with and (suspected) exposure to COVID-19; R79.89 Other specified abnormal findings of blood chemistry; E66.01 Morbid (severe) obesity due to excess calories; F41.9 Anxiety disorder, unspecified; E78.5 Hyperlipidemia, unspecified; Z68.39 Body mass index [BMI] 39.0-39.9, adult; Z83.3 Family history of diabetes mellitus; Z79.899 Other long term (current) drug therapy; Z82.49 Family history of ischemic heart disease and other diseases of the circulatory system; Z86.73 Personal history of transient ischemic attack (TIA), and cerebral infarction without residual deficits; Z87.891 Personal history of nicotine dependence
CPT/HCPCS: 36415; 36600; 71045; 71275; 80048; 80053; 80061; 80202; 80307; 81001; 82805; 83036; 83880; 84443; 84484; 85025; 85379; 85610; 85730; 87040; 87086; 87426; 93005; 94640; 94644; 96374; C9113; G0378; J0696

== ENCOUNTER 2023-02-08 07:00 | Outpatient (CLI) | payer MEDICAID, MEDICARE ==
[~2023-02-08 07:00] MED LIST changes: +ALBU2TAB11 INH; -ALBU2TAB4 INH; +ALBUTEROL MEDNEB 2.5 mg/3ml NEB ONE; +AZIT-74 PO; -AZIT250T PO; +HYDR-4227 PO; -HYDR10TA26 PO; +LEVO500T31 PO; -LISI20TA28 PO; +LISI20TA56 PO; +LISI40TA16 PO; +NIFE1TAB36 PO; +TEMA15CA2 PO
== END 2023-02-08 07:30 | disposition home or self-care (01) ==
LOC: RT 07:00
PROVIDERS: ATTEND Internal Medicine Pulmonary Disease
DX: J44.9 Chronic obstructive pulmonary disease, unspecified (principal)

== ENCOUNTER → 2023-04-26 | Outpatient (CLI) | payer MEDICAID, MEDICARE ==
[~2023-04-26] MED LIST changes: -ALBUTEROL MEDNEB 2.5 mg/3ml NEB ONE; +ALBUTEROL SULF 2.5 MG/0.5ML(0.5%) NEB SOLN ONE
== END | disposition home or self-care (01) ==
LOC: RT 10:45
PROVIDERS: ATTEND Internal Medicine Pulmonary Disease
DX: J44.9 Chronic obstructive pulmonary disease, unspecified (principal)
CPT/HCPCS: 94060; 94727; 94729

== ENCOUNTER 2024-02-08 07:58 | Emergency (ER) | payer MEDICAID, MEDICARE ==
[~2024-02-08] VITALS: Ht 175.3 cm; Wt 103.6 kg
[~2024-02-08 07:58] MED LIST changes: -ALBUTEROL SULF 2.5 MG/0.5ML(0.5%) NEB SOLN ONE; +HYDR-2792 PO; -HYDR-4227 PO
[2024-02-08] MEDS: SODIUM CHLORIDE 0.9% 1,000 ML IV ONE (08:45)
--- NOTE | 2024-02-08 09:04 | ED.PDOC ---
HPI Comments 78y M who presents to the ED for chief complaint of HTN. Pt states he woke up this AM and states he checked his BP at home and states it was 232/96 at 0600 this AM. Pt states he does have history of HTN and states he took his HTN meds afterwards and came to the ED for further evaluation. Pt states in the ED, he is having associated pressure by his neck and states he has been having swelling by his R hand and RLE for for the past 9 days. Pt in the ED, has noted BP of 156/63 in the ED with otherwise vitals in normal range. Pt has noted history of HTN, CHF, COPD, and CVA. Pt in the ED, otherwise denies headache, chest pain, shortness of breath, dizziness, nausea, vomiting, fever, cough or chills. Pt otherwise denies any other symptoms at this time. Chief Complaint: HTN Time Seen by MD: 09:00 Primary Care Provider: unknown Reviewed Notes: Medications, Allergies Allergies: Coded Allergies: NO KNOWN ALLERGIES (Unverified , 02/27/12) Home Meds Active Scripts Temazepam (Restoril) 15 Mg Cp, 1 CAP PO QPM, #7 CAP 1 Refill Prov:ADITYA GUILLEN [employer] 05/29/22 Nifedipine (Nifedipine ER) 30 Mg Tab, 30 MG PO DAILY for 90 Days, #90 TAB Prov:ADITYA GUILLEN [employer] 05/29/22 Lisinopril (Lisinopril) 40 Mg Tab, 1 TAB PO DAILY, #90 TAB 1 Refill Prov:ADITYA GUILLEN [employer] 05/29/22 Levofloxacin (Levaquin) 500 Mg Tab, 500 MG PO DAILY for 10 Days, #10 TAB Prov:ADITYA GUILLEN NP 05/29/22 Prednisone (Prednisone) 20 Mg Tab, 20 MG PO ONCE for 1 Day, #1 MG Prov:MERLIN PEDROZA MD 04/19/21 Prednisone (Prednisone) 10 Mg Tab, 10 MG PO ONCE for 1 Day, #1 MG Prov:MERLIN PEDROZA MD 04/19/21 Prednisone (Prednisone) 5 Mg Tab, 5 MG PO ONCE for 1 Day, #1 MG Prov:MERLIN PEDROZA MD 04/19/21 Prednisone (Prednisone) 20 Mg Tab, 30 MG PO ONCE for 1 Day, #1 MG Prov:MERLIN PEDROZA MD 04/19/21 Prednisone (Prednisone) 20 Mg Tab, 40 MG PO ONCE for 1 Day, #1 MG Prov:MERLIN PEDROZA MD 04/19/21 Prednisone (Prednisone) 20 Mg Tab, 50 MG PO ONCE for 1 Day, #1 MG Prov:MERLIN PEDROZA MD 04/19/21 Prednisone (Prednisone) 20 Mg Tab, 60 MG PO ONCE for 1 Day, #1 MG Prov:MERLIN PEDROZA MD 04/19/21 Azithromycin (Zithromax) 250 Mg Tab, 250 MG PO DAILY for 3 Days, #3 TAB Prov:MERLIN PEDROZA MD 04/19/21 Furosemide (LASIX TABLET) 40 Mg Tb, 40 MG PO DAILY, #30 TAB Prov:MI MADISON MD 01/09/16 Potassium Chloride (KLOR-CON TABLET) 20 Meq Tb, 20 MEQ PO DAILY, #30 TAB Prov:MI MADISON MD 01/09/16 Reported Medications Albuterol Sulfate (Albuterol Sulfate) 2 Mg Tab, 90 MCG INH, MG 04/19/21 Metoprolol Tartrate (Metoprolol Tartrate) 25 Mg Tab, 25 MG PO for 30 Days, MG 04/19/21 Omeprazole (Gnp Omeprazole) 20 Mg Tab, 1 TAB PO DAILY@BREAKFAST, #90 TAB 1 Refill 04/19/21 Hctz (Hydrochlorothiazide) 25 Mg Tab, 25 MG PO DAILY, TAB 04/19/21 Hydralazine Hcl (Hydralazine Hcl) 10 Mg Tab, 10 MG PO TID for 30 Days, MG 04/19/21 Cholecalciferol (VITAMIN D3) 2,000 Unit Tab, 1 TAB PO DAILY, #30 TAB 5 Refills 04/19/21 Buspirone HCl (Buspirone HCl) 10 Mg Tab, 10 MG PO BID, TAB 04/19/21 Aspirin (Aspir-Low) 81 Mg Tab, 81 MG PO DAILY for 30 Days, MG 01/05/16 Lisinopril (Lisinopril) 20 Mg Tab, 20 MG PO DAILY for 30 Days, MG 01/05/16 Information Source: Patient Mode of Arrival: Ambulatory Brought in by: self Past Medical History PAST MEDICAL HISTORY: Arthritis, CHF, COPD, High Lipids, HTN, TIA Surgical History: Denies all surgeries Family History Family History: Reviewed,noncontributory to illness Social History Smoker: Quit Greater Than 1 Year, Cigarettes, Less Than 1 Pack/Day Alcohol: Occasionally Drugs: Denies Drug Use Lives In: Home Constitutional: denies: chills, diaphoresis, fatigue, fever, malaise, sweats, weakness, others EENTM: reports: others (neck pain); denies: blurred vision, double vision, ear bleeding, ear discharge, ear drainage, ear pain, ear ringing, eye pain, eye redness, hearing loss, mouth pain, mouth swelling, nasal discharge, nose bleeding, nose congestion, nose pain, photophobia, tearing, throat pain, throat swelling, voice changes Respiratory: denies: cough, hemoptysis, orthopnea, SOB at rest, shortness of breath, SOB with excertion, stridor, wheezing, others Cardiovascular: denies: chest pain, dizzy spells, diaphoresis, Dyspnea on exertion, edema, irregular heart beat, left arm pain, lightheadedness, palpitations, PND, syncope, others Gastrointestinal: denies: abdomen distended, abdominal pain, blood streaked bowels, constipated, diarrhea, dysphagia, difficulty swallowing, hematemesis, melena, nausea, poor appetite, poor fluid intake, rectal bleeding, rectal pain, vomiting, others Genitourinary: denies: burning, dysuria, flank pain, frequency, hematuria, incontinence, penile discharge, penile sore, pain, testicle pain, testicle swelling, urgency, others Neurological: denies: dizziness, fainting, headache, left sided numbness, left sided weakness, numbness, paresthesia, pre-existing deficit, right sided numbness, right sided weakness, seizure, speech problems, tingling, tremors, weakness, others Musculoskeletal: reports: joint swelling (R hand and RLE); denies: back pain, g out, joint pain, muscle pain, muscle stiffness, neck pain, others Integumetry: denies: bruises, change in color, change in hair/nails, dryness, laceration, lesions, lumps, rash, wounds, others Allergic/Immunocompromised: denies: Difficulty Healing, Frequent Infections, Hives, Itching, others Hematologic/Lymphatic: denies: anemia, blood clots, easy bleeding, easy bruising, swollen glands, others Endocrine: denies: excessive hunger, excessive sweating, excessive thirst, excessive urination, flushing, intolerance to cold, intolerance to heat, unexpl ained weight gain, unexplained weight loss, others Psychiatric: denies: anxiety, bipolar disorder, depression, hopeless, panic disorder, schizophrenia, sleepless, suicidal, others All Other Systems: Reviewed and Negative Physical Exam General Appearance: No Apparent Distress HEENT: Normal ENT Inspection, PERRL/EOMI Neck: Full Range of Motion, Normal Respiratory: Lungs Clear, No Respiratory Distress, Normal Breath Sounds Cardiovascular: No Murmur, Normal Peripheral Pulses, Regular Rate/Rhythm Breast Exam: Deferred Gastrointestinal: No Organomegaly, Non Tender, No Pulsatile Mass, Normal Bowel Sounds, Soft Genitalia: Deferred Pelvic: Deferred Rectal: Deferred Extremities: Leg edema, Pedal edema Musculoskeletal : Location: Right Extremity Location: Hand Apperance: Swelling, Limited ROM, Tenderness: Moderate 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 Was a procedure done?: No CP Differential Dx Differential Diagnosis: Anxiety / Panic Attack, Electrolyte Disorder, Heart Failure, PVC's, Renal Failure Other Differential Diagnosis acute coronary syndrome, arthritis Differential Diagnosis: CHF, HTN Essential, HTN Accelerated, Medical NonCompliance Differential Diagnosis: Pneumonia X-Ray, Labs, Meds, VS Vital Signs Date Time Temp Pulse Resp B/P (MAP) Pulse Ox O2 Delivery O2 Flow Rate FiO2 02/08/24 09:36 61 18 98 Room Air* 0 21 02/08/24 09:35 98.3 61 18 155/58 (90) 98 98.3 02/08/24 09:10 66 02/08/24 08:29 98.6 69 18 156/63 (94) 96 Lab Test 02/08/24 08:59 Range/Units White Blood Count 9.2 4.4-10.8 10^3/uL Red Blood Count 4.68 4.5-5.90 10^6/uL Hemoglobin 13.6 13.5-17.5 g/dL Hematocrit 40.7 L 41.0-53.0 % Mean Corpuscular Volume 86.8 80.0-100.0 fL Mean Corpuscular Hemoglobin 28.9 28.0-32.0 pg Mean Corpuscular Hemoglobin Concent 33.4 32.0-36.0 g/dL Red Cell Distribution Width 14.6 H 11.8-14.3 % Platelet Count 259 140-450 10^3/uL Mean Platelet Volume 7.7 6.9-10.8 fL Neutrophils (%) (Auto) 73.0 37.0-80.0 % Lymphocytes (%) (Auto) 14.7 10.0-50.0 % Monocytes (%) (Auto) 8.6 0.0-12.0 % Eosinophils (%) (Auto) 3.0 0.0-7.0 % Basophils (%) (Auto) 0.7 0.0-2.0 % Neutrophils # (Auto) 6.7 1.6-8.6 10 ^3/uL Lymphocytes # (Auto) 1.4 0.4-5.4 10 ^3/uL Monocytes # (Auto) 0.8 0-1.3 10 ^3/uL Eosinophils # (Auto) 0.3 0-0.8 10 ^3/uL Basophils # (Auto) 0.1 0-0.2 10 ^3/uL Nucleated Red Blood Cells 0.1 % Sodium Level 143 136-145 mmol/L Potassium Level 3.7 3.5-5.1 mmol/L Chloride Level 110 H 98-107 mmol/L Carbon Dioxide Level 26 20-31 mmol/L Anion Gap 7 5-15 Blood Urea Nitrogen 16 9-23 mg/dL Creatinine 1.13 0.700-1.30 mg/dL Glomerular Filtration Rate Calc 66 >90 mL/min BUN/Creatinine Ratio 14.2 10.0-20.0 Serum Glucose 115 H 74-106 mg/dL Uric Acid 7.5 3.7-9.2 mg/dL Calcium Level 9.3 8.7-10.4 mg/dL Magnesium Level 2.1 1.6-2.6 mg/dL Total Bilirubin 0.4 0.2-1.0 mg/dL Aspartate Amino Transferase (AST) 23 13-40 U/L Alanine Aminotransferase (ALT) 22 7-40 U/L Alkaline Phosphatase 65 46-116 U/L Total Protein 7.6 5.7-8.2 g/dL Albumin 4.4 3.2-4.8 g/dL [place] [id number] Ph: [phone] DIAGNOSTIC IMAGING Diagnostic Imaging Report : [id number] Signed PATIENT: FRANCO JAEGER ACCT: [id number] UNIT: [id number] : 1945 LOC: ER ROOM / BED: / AGE / SEX: 78 / M ADM STATUS: REG ER SERVICE 3 ORDERING PHYSICIAN: HAILE SUTHERLAND MD PROCEDURE(s): RHAN - R HAND 3 VIEW XRAY REASON: red swollen ORDER NUMBER(s): [id number], ACCESSION NUMBER(s): [id number] Procedure: XY R HAND 3 VIEW XRAY 02/08/2024 08:50 AM TECHNIQUE: 3 views of the right hand Indication:red swollen. Comparison: None FINDINGS: Bones: No acute fracture or dislocation. Joint spaces are maintained. Marginal osteophytosis noted in several joints. Mild scattered IP joint osteoarthritis noted. Soft tissues: Diffuse dorsal soft tissue swelling. Atherosclerotic calcificatio n. No radiopaque foreign body. IMPRESSION: 1. No acute osseous abnormality. 2. Moderate dorsal soft tissue swelling. 3. Peripheral arterial disease. 4. No radiopaque foreign body. ATED BY: VERONICA GARCIA MD DICTATED DATE/TIME: 02/08/24923 SIGNED BY: VERONICA GARCIA MD SIGNED DATE/TIME: 02/08/24923 CC: [place] [id number] Ph: [phone] DIAGNOSTIC IMAGING Diagnostic Imaging Report : [id number] Signed PATIENT: FRANCO JAEGER ACCT: [id number] UNIT: [id number] : 1945 LOC: ER ROOM / BED: / AGE / SEX: 78 / M ADM STATUS: REG ER SERVICE 3 ORDERING PHYSICIAN: HAILE SUTHERLAND MD PROCEDURE(s): CXR2 - CHEST TWO VIEWS ROUTINE REASON: Uncontrolled hypertension ORDER NUMBER(s): [id number], ACCESSION NUMBER(s): [id number] CHEST TWO VIEWS ROUTINE CLINICAL HISTORY: Uncontrolled hypertension COMPARISON: CXR2 on DOS: 02/20/22 TECHNIQUE: Frontal and lateral view of the chest was obtained FINDINGS: Lines and Tubes: None Lungs: No focal consolidation. Pleura: No effusion. No pneumothorax. Cardiomediastinal contours: Unremarkable Bones: No acute osseous abnormality. IMPRESSION: 1. No acute cardiopulmonary disease. ATED BY: BREA GARLAND MD DICTATED DATE/TIME: 02/08/24916 SIGNED BY: BREA GARLAND MD SIGNED DATE/TIME: 02/08/24916 CC: X-Ray, Labs, Meds, VS Comment Course in the emergency department eventful patient came in complaining of uncontrolled hypertension at home he took it as 232 P is 96 he took his medication lisinopril and nifedipine and the blood pressure at this time is 156/63 patient with a history of hypertension CHF COPD diabetes and CVA and had cataract surgery Chest x-ray is normal EKG shows normal sinus rhythm at 66 CBC 9200 with 73% neutrophils normal H&H CMP normal Magnesium 2.1 Blood sugar 115 X-ray to the right hand soft soft tissue injury involving the entire hand with a calcifications and peripheral arterial disease Uric acid 7.5 elevated Patient will be discharged home to follow up with his PCP Time of 1ST Reevaluation: 09:30 Reevaluation 1ST: Unchanged Patient Education/Counseling: Diagnosis, Treatment Family Education/Counseling: No Family Present Departure 1 Departure Time of Disposition: 12:26 Impression: Primary Impression: Fluid retention in legs Additional Impressions: Gouty arthritis of right hand Uncontrolled hypertension Disposition: HOME / SELF CARE / HOMELESS Condition: Fair Additional Instructions: Continue your blood pressure medication and follow up with your PCP e-Prescriptions Prednisone (Prednisone) 20 Mg Tab 20 MG PO BID for 5 Days, #10 MG Prov: HAILE SUTHERLAND MD 02/08/24 Colchicine (Colchicine) 0.6 Mg Cap 0.6 MG PO BID for 5 Days, #10 CAP Prov: HAILE SUTHERLAND MD 02/08/24 Discharged With: Self Critical Care Note Critical Care Time?: No Stability Stability form required: No Heart Score Heart Score: Heart Score Response (Comments) Value History Slightly Suspicious 0 EKG Normal 0 Age >65 2 Risk Factors 1 or 2 risk factors 1 Troponin N/A 0 Total 3 I personally scribed for HAILE SUTHERLAND MD ([email or web address]) on 02/08/24 at 09:04. Electronically submitted by Antonina Tyson ([email or web address]). I personally scribed for HAILE SUTHERLAND MD ([email or web address]) on 02/08/24 at 09:33. Elect ronically submitted by Antonina Tyson ([email or web address]). HAILE SUTHERLAND MD Feb 08, 2024 09:04
[2024-02-08 09:16] LABS: Basophils # (auto) 0.1 10 ^3/uL (0-0.2); Basophils % (auto) 0.7 % (0.0-2.0); Eosinophils # (auto) 0.3 10 ^3/uL (0-0.8); Hematocrit 40.7 % (41.0-53.0); Hemoglobin 13.6 g/dL (13.5-17.5); Lymphocytes # (auto) 1.4 10 ^3/uL (0.4-5.4); Lymphocytes % (auto) 14.7 % (10.0-50.0); Mean Corpuscular Hemoglobin 28.9 pg (28.0-32.0); Mean Corpuscular Hgb Conc. 33.4 g/dL (32.0-36.0); Mean Corpuscular Volume 86.8 fL (80.0-100.0); Monocytes # (auto) 0.8 10 ^3/uL (0-1.3); Monocytes % (auto) 8.6 % (0.0-12.0); Neutrophils # (auto) 6.7 10 ^3/uL (1.6-8.6); Nucleated Red Blood Cells % 0.1 %; Platelet Count (auto) 259 10^3/uL (140-450); Red Blood Cells 4.68 10^6/uL (4.5-5.90); Red Cell Distribution Width 14.6 % (11.8-14.3); White Blood Cell 9.2 10^3/uL (4.4-10.8)
--- NOTE | 2024-02-08 09:19 | DVH ---
XY CHEST TWO VIEWS ROUTINE CLINICAL HISTORY: Uncontrolled hypertension COMPARISON: CXR2 on DOS: 02/20/22 TECHNIQUE: Frontal and lateral view of the chest was obtained FINDINGS: Lines and Tubes: None Lungs: No focal consolidation. Pleura: No effusion. No pneumothorax. Cardiomediastinal contours: Unremarkable Bones: No acute osseous abnormality. IMPRESSION: 1. No acute cardiopulmonary disease.
--- NOTE | 2024-02-08 09:26 | DVH ---
Procedure: XY R HAND 3 VIEW XRAY 02/08/2024 08:50 AM TECHNIQUE: 3 views of the right hand Indication:red swollen. Comparison: None FINDINGS: Bones: No acute fracture or dislocation. Joint spaces are maintained. Marginal osteophytosis noted in several joints. Mild scattered IP joint osteoarthritis noted. Soft tissues: Diffuse dorsal soft tissue swelling. Atherosclerotic calcification. No radiopaque fore ign body. IMPRESSION: 1. No acute osseous abnormality. 2. Moderate dorsal soft tissue swelling. 3. Peripheral arterial disease. 4. No radiopaque foreign body.
[2024-02-08 09:34] LABS: Alanine Aminotransferase 22 U/L (7-40); Albumin 4.4 g/dL (3.2-4.8); Alkaline Phosphatase 65 U/L (46-116); Anion Gap 7 (5-15); Aspartate Aminotransferase 23 U/L (13-40); BUN/Creatinine Ratio 14.2 (10.0-20.0); Bilirubin, Total 0.4 mg/dL (0.2-1.0); Blood Urea Nitrogen 16 mg/dL (9-23); Calcium 9.3 mg/dL (8.7-10.4); Carbon Dioxide 26 mmol/L (20-31); Chloride 110 mmol/L (98-107); Glucose 115 mg/dL (74-106); Magnesium 2.1 mg/dL (1.6-2.6); Potassium 3.7 mmol/L (3.5-5.1); Sodium 143 mmol/L (136-145); Total Protein 7.6 g/dL (5.7-8.2)
[2024-02-08 09:35] VITALS: BP 155/58; TEMP 98.3
[2024-02-08 09:36] VITALS: PULSE 61; RESP 18; O2SAT 98
[2024-02-08] MEDS ORDERED: COLC1CAP PO (12:29)
[2024-02-08] MEDS ORDERED: PRED20TA2 PO (12:29)
--- NOTE | 2024-02-10 12:20 | ECG ---
[facility] Test Date: 2024-02-08 Test Time: 09:07:30 Pat Name: FRANCO AJEGER Department: ED Room: Gender: M Top Screw: KRYSTYNA : 1945 Requested By: HAILE SUTHERLAND Order Number: [id number] Reading MD: Measurements Intervals [place] Rate: 66 P: 65 NE: 179 QRS: 70 QRSD: 85 T: 66 QT: 443 QTc: 465 Interpretive Statements Sinus rhythm Borderline repolarization abnormality ST depression V1-V3, suggest recording posterior leads Baseline wander in lead(s) V2 Please click the below link to view image of tracing.
== END 2024-02-08 22:54 | disposition home or self-care (01) ==
LOC: ER 07:58
DX: I11.0 Hypertensive heart disease with heart failure (principal); I50.9 Heart failure, unspecified; M10.9 Gout, unspecified; E11.51 Type 2 diabetes mellitus with diabetic peripheral angiopathy without gangrene; R60.9 Edema, unspecified; J44.9 Chronic obstructive pulmonary disease, unspecified; M19.90 Unspecified osteoarthritis, unspecified site; Z79.82 Long term (current) use of aspirin; Z79.899 Other long term (current) drug therapy; Z86.73 Personal history of transient ischemic attack (TIA), and cerebral infarction without residual deficits; Z87.891 Personal history of nicotine dependence
CPT/HCPCS: 36415; 71046; 73130; 80053; 83735; 84550; 85025; 93005

== ENCOUNTER 2024-04-09 16:27 | Emergency (ER) | payer OTHER, MEDICAID ==
[~2024-04-09] VITALS: Ht 175.3 cm; Wt 100.0 kg
[~2024-04-09 16:27] MED LIST changes: +COLC1CAP PO
--- NOTE | 2024-04-09 17:21 | DVH ---
Procedure: CT CHST AB PEL WO CON-NO IV/ORAL 04/09/2024 04:53 PM Indication: DIFFUSE RIGHT SIDED ABD PAIN Comparison Study: None available at time of dictation. Technique: Axial images were obtained and reformatted in coronal and sagittal planes. All CT scans at this medical facility are performed using dose modulation techniques as appropriate t o a performed exam including the following: Automated exposure control was utilized; adjustment of th e MA and/or KV according to patient size; and use of iterative reconstruction technique. CT Dose: CTDI volume is 20 mGy. Dose-length product is 1314 mGy*cm FINDINGS: Lower neck: Unremarkable. Cardiomediastinal: The heart is normal in size. Coronary artery calcification noted. There is calcifi cation of the mitral annulus and aortic valve leaflets. Atherosclerotic calcification of the thoracic aorta noted Aorta is normal in caliber. No mediastinal lymphadenopathy. Lungs: Moderate opacity in the right upper lobe with air bronchograms. Small right pleural effusion noted. No pneumothorax. Hepatobiliary: Mild hepatomegaly. Hepatic steatosis. No intrahepatic or extrahepatic ductal dilatat ion.. Spleen: Unremarkable. Pancreas: Unremarkable. Adrenal Glands: Unremarkable. tract: The kidneys are normal in size bilaterally without hydronephrosis or nephrolithiasis. A 2 c m peripherally calcified hypodense lesion with average attenuation of 20 Hounsfield units noted exoph ytically arising from midpole of the right kidney. A 1.4 cm exophytic cyst with average attenuation of 10 Hounsfield unit is seen arising from the upper pole of the left kidney. A subcentimeter cortica l cyst is seen midpole of the right kidney. Mild diffuse bladder wall thickening could be at least in part due to lack of distention. GI tract: The stomach is grossly normal in appearance. No evidence of small bowel obstruction. The la rge bowel is unremarkable. The appendix is normal. Lymphatics: No mesenteric, retroperitoneal or periportal lymphadenopathy. Vasculature: Aorta is normal in caliber. Scattered calcified plaques are noted. Pelvic Organs: Unremarkable. Bones/soft tissues: No acute abnormality. Multilevel degenerative changes of the lumbar spine noted. Other: None. IMPRESSION: 1. Right upper lobe pneumonia small right pleural effusion. 2. No acute abnormality seen in the abdomen or pelvis. 3. Hepatomegaly and hepatic steatosis. 4. Small bilateral renal cysts that are incompletely evaluated in this unenhanced study. Correlation with ultrasound on a nonemergent basis is recommended. 5. Moderate bladder wall thickening and trabeculation could be at least in part due to lack of disten tion and/or longstanding obstruction, cystitis or infiltrative marrow lesion. Recommend clinical rosa elation and follow-up by bladder sonogram if clinically indicated.
[2024-04-09] MEDS: IPRATROPIUM BROM 0.5 MG/2.5ML INH SOL NEB ONE (17:35)
[2024-04-09] MEDS: ALBUTEROL SULF 2.5 MG/0.5ML(0.5%) NEB SOLN NEB ONE (17:35)
[2024-04-09 18:00] LABS: Basophils # (auto) 0 10 ^3/uL (0-0.2); Basophils % (auto) 0.2 % (0.0-2.0); Eosinophils # (auto) 0.2 10 ^3/uL (0-0.8); Eosinophils % (auto) 1.3 % (0.0-7.0); Hematocrit 34.5 % (41.0-53.0); Hemoglobin 11.4 g/dL (13.5-17.5); Mean Corpuscular Hemoglobin 27.9 pg (28.0-32.0); Mean Corpuscular Hgb Conc. 32.9 g/dL (32.0-36.0); Mean Corpuscular Volume 84.9 fL (80.0-100.0); Monocytes # (auto) 1.2 10 ^3/uL (0-1.3); Neutrophils # (auto) 14.9 10 ^3/uL (1.6-8.6); Neutrophils % (auto) 85.5 % (37.0-80.0); Platelet Count (auto) 290 10^3/uL (140-450); Red Blood Cells 4.06 10^6/uL (4.5-5.90); Red Cell Distribution Width 16.3 % (11.8-14.3); White Blood Cell 17.5 10^3/uL (4.4-10.8)
[2024-04-09] MEDS: DexAMETHasone SOD PHOS 10MG/1ML VIAL INJ IM ONE (18:09)
[2024-04-09 18:48] LABS: Alanine Aminotransferase 17 U/L (7-40); Alkaline Phosphatase 63 U/L (46-116); Anion Gap 9 (5-15); Aspartate Aminotransferase 13 U/L (13-40); BUN/Creatinine Ratio 21.3 (10.0-20.0); Calcium 9.1 mg/dL (8.7-10.4); Carbon Dioxide 21 mmol/L (20-31); Chloride 107 mmol/L (98-107); Potassium 4.9 mmol/L (3.5-5.1); Sodium 137 mmol/L (136-145)
[2024-04-09 18:49] LABS: Albumin 3.8 g/dL (3.2-4.8); Bilirubin, Total 0.4 mg/dL (0.2-1.0); Total Protein 6.6 g/dL (5.7-8.2)
[2024-04-09 19:13] LABS: Blood Urea Nitrogen 43 mg/dL (9-23); Glucose 113 mg/dL (74-106)
[2024-04-09 20:48] LABS: Lipase 34 U/L (12-53)
[2024-04-09] MEDS ORDERED: AZITHROMYCIN 500MG/ 250ML 250 ML IV ONE (21:15)
--- NOTE | 2024-04-09 21:19 | ED.PDOC ---
HPI Comments Patient tripped is any 78-year-old male who arrives to the ED today for evaluation of right-sided lower chest and abdominal pain that began three days ago and has continued. Patient is has some productive cough for with his pain concerns. Patient states he has had pneumonia in the past but feels that he has pneumonia again. Patient states he came to the facility because he has no assistance at home. Patient's vital signs were mildly hypertensive with a 92% oxygen saturation. No fever. Chief Complaint: Chest Pain Time Seen by MD: 16:38 Primary Care Provider: unknown Reviewed Notes: Nurses Notes Allergies: Coded Allergies: NO KNOWN ALLERGIES (Unverified , 02/27/12) Home Meds Active Scripts Prednisone (Prednisone) 20 Mg Tab, 20 MG PO BID for 5 Days, #10 MG Prov:HAILE SUTHERLAND MD 02/08/24 Colchicine (Colchicine) 0.6 Mg Cap, 0.6 MG PO BID for 5 Days, #10 CAP Prov:HAILE SUTHERLAND MD 02/08/24 Temazepam (Restoril) 15 Mg Cp, 1 CAP PO QPM, #7 CAP 1 Refill Prov:ADITYA GUILLEN BLANKING MACHINE OPERATOR 05/29/22 Nifedipine (Nifedipine ER) 30 Mg Tab, 30 MG PO DAILY for 90 Days, #90 TAB Prov:ADITYA GUILLEN BLANKING MACHINE OPERATOR 05/29/22 Lisinopril (Lisinopril) 40 Mg Tab, 1 TAB PO DAILY, #90 TAB 1 Refill Prov:ADITYA GUILLEN BLANKING MACHINE OPERATOR 05/29/22 Levofloxacin (Levaquin) 500 Mg Tab, 500 MG PO DAILY for 10 Days, #10 TAB Prov:ADITYA GUILLEN BLANKING MACHINE OPERATOR 05/29/22 Prednisone (Prednisone) 20 Mg Tab, 20 MG PO ONCE for 1 Day, #1 MG Prov:MERLIN PEDROZA MD 04/19/21 Prednisone (Prednisone) 10 Mg Tab, 10 MG PO ONCE for 1 Day, #1 MG Prov:MERLIN PEDROZA MD 04/19/21 Prednisone (Prednisone) 5 Mg Tab, 5 MG PO ONCE for 1 Day, #1 MG Prov:MERLIN PEDROZA MD 04/19/21 Prednisone (Prednisone) 20 Mg Tab, 30 MG PO ONCE for 1 Day, #1 MG Prov:MERLIN PEDROZA MD 04/19/21 Prednisone (Prednisone) 20 Mg Tab, 40 MG PO ONCE for 1 Day, #1 MG Prov:MERLIN PEDROZA MD 04/19/21 Prednisone (Prednisone) 20 Mg Tab, 50 MG PO ONCE for 1 Day, #1 MG Prov:MERLIN PEDROZA MD 04/19/21 Prednisone (Prednisone) 20 Mg Tab, 60 MG PO ONCE for 1 Day, #1 MG Prov:MERLIN PEDROZA MD 04/19/21 Azithromycin (Zithromax) 250 Mg Tab, 250 MG PO DAILY for 3 Days, #3 TAB Prov:MERLIN PEDROZA MD 04/19/21 Furosemide (LASIX TABLET) 40 Mg Tb, 40 MG PO DAILY, #30 TAB Prov:MI MADISON MD 01/09/16 Potassium Chloride (KLOR-CON TABLET) 20 Meq Tb, 20 MEQ PO DAILY, #30 TAB Prov:MI MADISON MD 01/09/16 Reported Medications Albuterol Sulfate (Albuterol Sulfate) 2 Mg Tab, 90 MCG INH, MG 04/19/21 Metoprolol Tartrate (Metoprolol Tartrate) 25 Mg Tab, 25 MG PO for 30 Days, MG 04/19/21 Omeprazole (Gnp Omeprazole) 20 Mg Tab, 1 TAB PO DAILY@BREAKFAST, #90 TAB 1 Refill 04/19/21 Hctz (Hydrochlorothiazide) 25 Mg Tab, 25 MG PO DAILY, TAB 04/19/21 Hydralazine Hcl (Hydralazine Hcl) 10 Mg Tab, 10 MG PO TID for 30 Days, MG 04/19/21 Cholecalciferol (VITAMIN D3) 2,000 Unit Tab, 1 TAB PO DAILY, #30 TAB 5 Refills 04/19/21 Buspirone HCl (Buspirone HCl) 10 Mg Tab, 10 MG PO BID, TAB 04/19/21 Aspirin (Aspir-Low) 81 Mg Tab, 81 MG PO DAILY for 30 Days, MG 01/05/16 Lisinopril (Lisinopril) 20 Mg Tab, 20 MG PO DAILY for 30 Days, MG 01/05/16 Information Source: Patient Mode of Arrival: Ambulatory Severity: Moderate Timing: Days Duration: Since onset Prehospital treatment: None Location: Chest (R) Radiation: Abdomen Quality: Sharp, Squeezing Onset: At Rest PE Risk Factors: None History of: Similar pain in past Modifying Factors: Coughing Past Medical History PAST MEDICAL HISTORY: Arthritis, CHF, COPD, High Lipids, HTN, TIA Surgical History: Denies all surgeries Family History Family History: Reviewed,noncontributory to illness Social History Smoker: Quit Greater Than 1 Year, Cigarettes, Less Than 1 Pack/Day Alcohol: Occasionally Drugs: Denies Drug Use Lives In: Home Constitutional: reports: fatigue, fever; denies: chills, diaphoresis, malaise, sweats, weakness, others EENTM: denies: blurred vision, double vision, ear bleeding, ear discharge, ear drainage, ear pain, ear ringing, eye pain, eye redness, hearing loss, mouth pain, mouth swelling, nasal discharge, nose bleeding, nose congestion, nose pain, photophobia, tearing, throat pain, throat swelling, voice changes, others Respiratory: reports: cough, shortness of breath; denies: hemoptysis, orthop nery, SOB at rest, SOB with excertion, stridor, wheezing, others Cardiovascular: reports: chest pain; denies: dizzy spells, diaphoresis, Dyspnea on exertion, edema, irregular heart beat, left arm pain, lightheadedness, palpitations, PND, syncope, others Gastrointestinal: reports: abdominal pain; denies: abdomen distended, blood streaked bowels, constipated, diarrhea, dysphagia, difficulty swallowing, hematemesis, melena, nausea, poor appetite, poor fluid intake, rectal bleeding, rectal pain, vomiting, others Genitourinary: denies: burning, dysuria, flank pain, frequency, hematuria, incontinence, penile discharge, penile sore, pain, testicle pain, testicle swelling, urgency, others Neurological: denies: dizziness, fainting, headache, left sided numbness, left sided weakness, numbness, paresthesia, pre-existing deficit, right sided numbness, right sided weakness, seizure, speech problems, tingling, tremors, weakness, others Musculoskeletal: denies: back pain, gout, joint pain, joint swelling, muscle pain, muscle stiffness, neck pain, others Integumetry: denies: bruises, change in color, change in hair/nails, dryness, laceration, lesions, lumps, rash, wounds, others Allergic/Immunocompromised: denies: Difficulty Healing, Frequent Infections, Hives, Itching, others Hematologic/Lymphatic: denies: anemia, blood clots, easy bleeding, easy bruising, swollen glands, others Endocrine: denies: excessive hunger, excessive sweating, excessive thirst, excessive urination, flushing, intolerance to cold, intolerance to heat, unexplained weight gain, unexplained weight loss, others Psychiatric: denies: anxiety, bipolar disorder, depression, hopeless, panic disorder, schizophrenia, sleepless, suicidal, others Physical Exam General Appearance: Moderate Distress (Patient appears to be in moderate distress due to right-sided chest and abdominal pain concerns.), Obese HEENT: Normal ENT Inspection, Pharynx Normal, TMs Normal Neck: Full Range of Motion, Non-Tender, Normal, Normal Inspection Respiratory: Lungs Clear, No Accessory Muscle Use, No Respiratory Distress, Normal Breath Sounds, Other (Diffuse right-sided lower chest tenderness to palpation extending from the midclavicular line towards the axillary line. No signs of trauma. No crepitus noted.) Cardiovascular: No Edema, No JVD, No Murmur, No Gallop, Normal Peripheral Pulses, Regular Rate/Rhythm Breast Exam: Deferred Gastrointestinal: No Pulsatile Mass, Normal Bowel Sounds, Soft, Tenderness (In his supra patient throughout the right-sided abdomen down to the right lower quadrant. Mildly rigid abdomen. No pulsatile masses.) Genitalia: Deferred Pelvic: Deferred Rectal: Deferred Extremities: No calf tenderness, Normal capillary refill, Normal inspection, Normal range of motion, Non-tender, No pedal edema Neurologic: Alert, human resources temp II-XII nml as Tested, No Motor Deficits, Normal Affect, Normal Mood, No Sensory Deficits Cerebellar Function: Normal Reflexes: Normal Skin: Dry, Normal Color, Warm Lymphatic: No Adenopathy Was a procedure done? Was a procedure done?: No CP Differential Dx Differential Diagnosis: A-fib, A-Flutter, Anxiety / Panic Attack, AV Block 1st Degree, [place] Differential Diagnosis: Chest Wall Pain, Pneumonia X-Ray, Labs, Meds, VS Vital Signs Date Time Temp Pulse Resp B/P (MAP) Pulse Ox O2 Delivery O2 Flow Rate FiO2 04/09/24 18:10 98.6 78 20 167/48 (87) 95 98.6 04/09/24 17:35 18 93 Room Air* 0 21 1/2/25 17:35 93 Room Air* 0 04/09/24 16:36 79 04/09/24 16:28 100.0 84 20 164/59 (94) 92 Lab Test 04/09/24 17:26 Range/Units White Blood Count 17.5 H 4.4-10.8 10^3/uL Red Blood Count 4.06 L 4.5-5.90 10^6/uL Hemoglobin 11.4 L 13.5-17.5 g/dL Hematocrit 34.5 L 41.0-53.0 % Mean Corpuscular Volume 84.9 80.0-100.0 fL Mean Corpuscular Hemoglobin 27.9 L 28.0-32.0 pg Mean Corpuscular Hemoglobin Concent 32.9 32.0-36.0 g/dL Red Cell Distribution Width 16.3 H 11.8-14.3 % Platelet Count 290 140-450 10^3/uL Mean Platelet Volume 8.5 6.9-10.8 fL Neutrophils (%) (Auto) 85.5 H 37.0-80.0 % Lymphocytes (%) (Auto) 6.0 L 10.0-50.0 % Monocytes (%) (Auto) 7.0 0.0-12.0 % Eosinophils (%) (Auto) 1.3 0.0-7.0 % Basophils (%) (Auto) 0.2 0.0-2.0 % Neutrophils # (Auto) 14.9 H 1.6-8.6 10 ^3/uL Lymphocytes # (Auto) 1.0 0.4-5.4 10 ^3/uL Monocytes # (Auto) 1.2 0-1.3 10 ^3/uL Eosinophils # (Auto) 0.2 0-0.8 10 ^3/uL Basophils # (Auto) 0 0-0.2 10 ^3/uL Nucleated Red Blood Cells 0.0 % Sodium Level 137 136-145 mmol/L Potassium Level 4.9 3.5-5.1 mmol/L Chloride Level 107 98-107 mmol/L Carbon Dioxide Level 21 20-31 mmol/L Anion Gap 9 5-15 Blood Urea Nitrogen 43 H 9-23 mg/dL Creatinine 2.02 H 0.700-1.30 mg/dL Glomerular Filtration Rate Calc 33 >90 mL/min BUN/Creatinine Ratio 21.3 H 10.0-20.0 Serum Glucose 113 H 74-106 mg/dL Lactic Acid Level 0.9 0.4-2.0 mmol/L Calcium Level 9.1 8.7-10.4 mg/dL Total Bilirubin 0.4 0.2-1.0 mg/dL Aspartate Amino Transferase (AST) 13 13-40 U/L Alanine Aminotransferase (ALT) 17 7-40 U/L Alkaline Phosphatase 63 46-116 U/L B-Type Natriuretic Peptide 186.69 0-100 pg/mL Total Protein 6.6 5.7-8.2 g/dL Albumin 3.8 3.2-4.8 g/dL Lipase 34 12-53 U/L Current Medications Medications (Trade) Dose Ordered Sig/Destiney Route Start Time Stop Time Status Last Admin Albuterol (Ventolin Medneb) 5 mg ONCE ONCE NEB 04/09/24 16:45 04/09/24 16:46 DC 04/09/24 17:35 Ipratropium [place] (Atrovent Medneb) 0.5 mg ONCE ONCE NEB 04/09/24 16:45 04/09/24 16:46 DC 04/09/24 17:35 Dexamethasone Sodium Phosphate (Decadron Injection) 10 mg ONCE ONCE IM 04/09/24 16:45 04/09/24 16:46 DC 04/09/24 18:09 X-Ray, Labs, Meds, VS Comment All studies performed the ED were evaluated by me personally. Serum labora tories revealed a leukocytosis, anemia, what appears to be acute on chronic renal disease. Imaging studies confirmed a right upper lobe pneumonia. During the patient's age as well as lack of home support and concern for medication compliance, patient will be admitted for medication management of his pneumonia as well as nephrology evaluation of his renal concerns. After several hours in the waiting room, patient called for me and stated he would rather go home and manage his condition outpatient. Advised with the patient that he will need a utilizes antibiotics as directed and follow up with his primary care provider with respect to his renal concerns. Time of 1ST Reevaluation: 21:15 Reevaluation 1ST: Improved Consultation: PCP Patient Education/Counseling: Diagnosis, Treatment Family Education/Counseling: Diagnosis, Treatment Departure 1 Departure Time of Disposition: 21:17 Impression: Primary Impression: Pneumonia Additional Impression: Renal disease Disposition: HOME / SELF CARE / HOMELESS Condition: Stable Additional Instructions: Advised patient utilize antibiotics as directed until completion as well as additional medication as needed. Patient needs to follow up with his primary care provider for re-evaluation in the next few days as well as conversation related to kidney concerns. e-Prescriptions Benzonatate (Benzonatate) 100 Mg Cap 1 CAP PO Q8HP PRN, #20 CAP Prov: MAIRA RAMSEY PAC 04/09/24 Azithromycin (Azithromycin) 500 Mg Tab 1 TAB PO DAILY for 4 Days, #4 TAB Prov: MAIRA RAMSEY PAC 04/09/24 Discharged With: Self, Friend Critical Care Note Critical Care Time?: No Stability Stability form required: No Heart Score Heart Score: Heart Score Response (Comments) Value History Slightly Suspicious 0 EKG Repolarization Disturb 1 Age >65 2 Risk Factors 1 or 2 risk factors 1 Troponin N/A 0 Total 4 MAIRA RAMSEY PAC Apr 09, 2024 21:19
[2024-04-09] MEDS ORDERED: AZIT500T66 PO (21:40)
[2024-04-09] MEDS ORDERED: BENZ100C97 PO (21:40)
[2024-04-09] MEDS: AZITHROMYCIN 250 MG TAB PO ONE (22:40)
[2024-04-09 22:43] VITALS: BP 150/63; PULSE 70; RESP 19; TEMP 97.8; O2SAT 94
== END 2024-04-09 22:45 | disposition home or self-care (01) ==
LOC: ER 16:27
DX: J18.9 Pneumonia, unspecified organism (principal); I11.0 Hypertensive heart disease with heart failure; I50.9 Heart failure, unspecified; J44.0 Chronic obstructive pulmonary disease with (acute) lower respiratory infection; M19.90 Unspecified osteoarthritis, unspecified site; Z79.52 Long term (current) use of systemic steroids; Z79.82 Long term (current) use of aspirin; Z79.899 Other long term (current) drug therapy; Z86.73 Personal history of transient ischemic attack (TIA), and cerebral infarction without residual deficits; Z87.01 Personal history of pneumonia (recurrent); Z87.891 Personal history of nicotine dependence
CPT/HCPCS: 36415; 71250; 74176; 80053; 83605; 83690; 83880; 85025; 94640; 96372; 99285; J1100

== ENCOUNTER 2024-04-28 18:45 | Inpatient (IN) | payer OTHER, MEDICARE, MEDICAID ==
[~2024-04-28] VITALS: Ht 176.5 cm; Wt 100.0 kg
[~2024-04-28 18:45] MED LIST changes: +AZIT500T66 PO; +BENZ100C97 PO
--- NOTE | 2024-04-28 19:54 | ED.PDOC ---
Musculoskeletal HPI Comments HPI: Poor Historian. 78-year-old male presents to emergency department for evaluation of left upper extremity left hand swelling left wrist pain for approximately one week that is progressively getting worse. This is happened after one of his dogs bit him as he was trying to break a fight between his two dogs. He went to his urgent care today who sent him here for left hand cellulitis and swelling. Patient states having history of gout. Patient is not sure if this happened because of the dog bite or that he scratched on it and he got worse. Past Medcial History: CHF, hypertension, gout, COPD, peripheral neuropathy Past Surgical History: Denies any REVIEW OF SYSTEMS: CONSTITUTIONAL: Denies acute: fever, diaphoresis, chills, generalized weakness. HEAD: Denies acute: headache, photophobia Eyes: Denies acute: Double vision, vision loss, eye pain, eye discharge. EARS: Denies acute: tinnitus, hearing loss, ear discharge, ear pain, THROAT: Denies acute: sore throat, swelling, difficulty swallowing , pain with swallowing, change in voice. NECK: Denies acute: neck pain, neck swelling, stiff neck. HEART: Denies acute : chest pain, palpitations, LUNGS: Denies acute: SOB, wheezing, cough, hemoptysis ABDOMEN: Denies acute: abdominal pain, Nausea, Vomiting, diarrhea, melena , hematemesis, hematochezia SKIN: Denies acute: rash, redness, lesions, itchiness. EXTREMITIES: Denies acute: calf pain, numbness, tingling, weakness, Denies acute: Low back pain. Neuro: Denies acute: focal neurological deficit, motor or sensory focal neurological deficit, tremors, seizure like activity, confusion, dizziness, change in mental status, loss of bowel or bladder function, cauda equina like symptoms. : Denies acute: dysuria, hematuria, flank pain, increase in urinary frequency. PSYCH: Denies acute: hallucination, suicidal ideation, homicidal ideation. PHYSICAL EXAM: General: [id number] acute distress, awake and alert. Head: normocephalic, atraumatic. Neck: supple, trachea is midline, no swelling. Throat: Normal phonation. Eyes:, no erythema, no purulent discharge, no proptosis, no icterus. Heart: regular rate, regular rhythm, no significant murmur appreciated. Lungs: no apparent respiratory distress, Able to speak in full sentences. No wheezing, no rhonchi, no crackles. No stridors Clear to auscultation bilaterally. Abdomen: non tender to palpation, non distended, soft, no guarding, no rebound, + bowel sounds. Neuro: Awake, Alert, oriented to name, self, situation, follows commands GCS=15. Speech is normal. Skin: no petechia, no purpura, no cyanosis, non-pale, not jaundice. Lower extremities: --1/4 bilateral - Pitting edema no deformity, no focal swelling, no calf TTP. Evaluation of left upper extremity.: Radial pulses palpable. Sensory and motor are present. Decreased range of motion of the left wrist secondary to pain. Able to oppose with the thumb and digits on the affected hand. Noted swelling and puffiness of the hand that extends up to the wrist. The area is tender to palpation specifically over the rest region. Makes eye contact. moves all four extremities. Face: no apparent facial droop. Ambulating in the ED with the walker. Chief Complaint: Upper Extremity Time Seen by MD: 19:04 Primary Care Provider: unknown Reviewed Notes: Nurses Notes, Allergies Allergies: Coded Allergies: NO KNOWN ALLERGIES (Unverified , 02/27/12) Home Meds Active Scripts Benzonatate (Benzonatate) 100 Mg Cap, 1 CAP PO Q8HP PRN, #20 CAP Prov:MAIRA RAMSEY PAC 04/09/24 Azithromycin (Azithromycin) 500 Mg Tab, 1 TAB PO DAILY for 4 Days, #4 TAB Prov:MAIRA RAMSEY PAC 04/09/24 Prednisone (Prednisone) 20 Mg Tab, 20 MG PO BID for 5 Days, #10 MG Prov:HAILE SUTHERLAND MD 02/08/24 Colchicine (Colchicine) 0.6 Mg Cap, 0.6 MG PO BID for 5 Days, #10 CAP Prov:HAILE SUTHERLAND MD 02/08/24 Temazepam (Restoril) 15 Mg Cp, 1 CAP PO QPM, #7 CAP 1 Refill Prov:ADITYA GIULLEN NP 05/29/22 Nifedipine (Nifedipine ER) 30 Mg Tab, 30 MG PO DAILY for 90 Days, #90 TAB Prov:ADITYA GUILLEN [employer] 05/29/22 Lisinopril (Lisinopril) 40 Mg Tab, 1 TAB PO DAILY, #90 TAB 1 Refill Prov:ADITYA GUILLEN [employer]ACH 05/29/22 Levofloxacin (Levaquin) 500 Mg Tab, 500 MG PO DAILY for 10 Days, #10 TAB Prov:ADITYA GUILLEN [employer] 05/29/22 Prednisone (Prednisone) 20 Mg Tab, 20 MG PO ONCE for 1 Day, #1 MG Prov:MERLIN PEDROZA MD 04/19/21 Prednisone (Prednisone) 10 Mg Tab, 10 MG PO ONCE for 1 Day, #1 MG Prov:MERLIN PEDROZA MD 04/19/21 Prednisone (Prednisone) 5 Mg Tab, 5 MG PO ONCE for 1 Day, #1 MG Prov:MERLIN PEDROZA MD 04/19/21 Prednisone (Prednisone) 20 Mg Tab, 30 MG PO ONCE for 1 Day, #1 MG Prov:MERLIN PEDROZA MD 04/19/21 Prednisone (Prednisone) 20 Mg Tab, 40 MG PO ONCE for 1 Day, #1 MG Prov:MERLIN PEDROZA MD 04/19/21 Prednisone (Prednisone) 20 Mg Tab, 50 MG PO ONCE for 1 Day, #1 MG Prov:MERLIN PEDROZA MD 04/19/21 Prednisone (Prednisone) 20 Mg Tab, 60 MG PO ONCE for 1 Day, #1 MG Prov:MERLIN PEDROZA MD 04/19/21 Azithromycin (Zithromax) 250 Mg Tab, 250 MG PO DAILY for 3 Days, #3 TAB Prov:MERLIN PEDROZA MD 04/19/21 Furosemide (LASIX TABLET) 40 Mg Tb, 40 MG PO DAILY, #30 TAB Prov:MI MADISON MD 01/09/16 Potassium Chloride (KLOR-CON TABLET) 20 Meq Tb, 20 MEQ PO DAILY, #30 TAB Prov:MI MADISON MD 01/09/16 Reported Medications Albuterol Sulfate (Albuterol Sulfate) 2 Mg Tab, 90 MCG INH, MG 04/19/21 Metoprolol Tartrate (Metoprolol Tartrate) 25 Mg Tab, 25 MG PO for 30 Days, MG 04/19/21 Omeprazole (Gnp Omeprazole) 20 Mg Tab, 1 TAB PO DAILY@BREAKFAST, #90 TAB 1 Refill 04/19/21 Hctz (Hydrochlorothiazide) 25 Mg Tab, 25 MG PO DAILY, TAB 04/19/21 Hydralazine Hcl (Hydralazine Hcl) 10 Mg Tab, 10 MG PO TID for 30 Days, MG 04/19/21 Cholecalciferol (VITAMIN D3) 2,000 Unit Tab, 1 TAB PO DAILY, #30 TAB 5 Refills 04/19/21 Buspirone HCl (Buspirone HCl) 10 Mg Tab, 10 MG PO BID, TAB 04/19/21 Aspirin (Aspir-Low) 81 Mg Tab, 81 MG PO DAILY for 30 Days, MG 01/05/16 Lisinopril (Lisinopril) 20 Mg Tab, 20 MG PO DAILY for 30 Days, MG 01/05/16 Mode of Arrival: Ambulatory Past Medical History PAST MEDICAL HISTORY: Arthritis, CHF, COPD, High Lipids, HTN, TIA Surgical History: Denies all surgeries Family History Family History: Reviewed,noncontributory to illness Social History Smoker: Quit Greater Than 1 Year, Cigarettes, Less Than 1 Pack/Day Alcohol: Occasionally Drugs: Denies Drug Use Lives In: Home Was a procedure done? Was a procedure done?: No X-Ray, Labs, Meds, VS Vital Signs Date Time Temp Pulse Resp B/P (MAP) Pulse Ox O2 Delivery O2 Flow Rate FiO2 04/28/24 19:20 99.1 75 18 154/58 (90) 97 Lab Test 04/28/24 21:37 04/28/24 20:02 Range/Units B-Type Natriuretic Peptide 88.76 0-100 pg/mL White Blood Count 10.0 4.4-10.8 10^3/uL Red Blood Count 4.60 4.5-5.90 10^6/uL Hemoglobin 12.8 L 13.5-17.5 g/dL Hematocrit 39.4 L 41.0-53.0 % Mean Corpuscular Volume 85.6 80.0-100.0 fL Mean Corpuscular Hemoglobin 27.7 L 28.0-32.0 pg Mean Corpuscular Hemoglobin Concent 32.4 32.0-36.0 g/dL Red Cell Distribution Width 17.0 H 11.8-14.3 % Platelet Count 277 140-450 10^3/uL Mean Platelet Volume 8.0 6.9-10.8 fL Neutrophils (%) (Auto) 75.8 37.0-80.0 % Lymphocytes (%) (Auto) 13.5 10.0-50.0 % Monocytes (%) (Auto) 8.5 0.0-12.0 % Eosinophils (%) (Auto) 1.6 0.0-7.0 % Basophils (%) (Auto) 0.6 0.0-2.0 % Neutrophils # (Auto) 7.6 1.6-8.6 10 ^3/uL Lymphocytes # (Auto) 1.4 0.4-5.4 10 ^3/uL Monocytes # (Auto) 0.8 0-1.3 10 ^3/uL Eosinophils # (Auto) 0.2 0-0.8 10 ^3/uL Basophils # (Auto) 0.1 0-0.2 10 ^3/uL Nucleated Red Blood Cells 0.0 % Erythrocyte Sedimentation Rate 41 H 0-20 mm/hr Sodium Level 139 136-145 mmol/L Potassium Level 4.7 3.5-5.1 mmol/L Chloride Level 108 H 98-107 mmol/L Carbon Dioxide Level 20 20-31 mmol/L Anion Gap 11 5-15 Blood Urea Nitrogen 30 H 9-23 mg/dL Creatinine 1.53 H 0.700-1.30 mg/dL Glomerular Filtration Rate Calc 46 >90 mL/min BUN/Creatinine Ratio 19.6 10.0-20.0 Serum Glucose 113 H 74-106 mg/dL Lactic Acid Level 1.4 0.4-2.0 mmol/L Uric Acid 8.0 3.7-9.2 mg/dL Calcium Level 9.4 8.7-10.4 mg/dL Total Bilirubin 0.6 0.2-1.0 mg/dL Aspartate Amino Transferase (AST) 15 13-40 U/L Alanine Aminotransferase (ALT) 23 7-40 U/L Alkaline Phosphatase 63 46-116 U/L Creatine Kinase 62 46-171 U/L C-Reactive Protein High Sensitivity 7.00 H <1.0 mg/dL Total Protein 7.3 5.7-8.2 g/dL Albumin 4.4 3.2-4.8 g/dL Current Medications Medications (Trade) Dose Ordered Sig/Destiney Route Start Time Stop Time Status Last Admin Acetaminophen/ Hydrocodone Bitart ([place] 5/325MG Tab) 1 tab ONCE ONCE PO 04/28/24 22:30 04/28/24 22:31 DC 04/28/24 22:40 [place] [id number] Ph: [phone] DIAGNOSTIC IMAGING Diagnostic Imaging Report : [id number] Signed PATIENT: FRANCO JAEGER ACCT: [id number] UNIT: [id number] : 1945 LOC: ER ROOM / BED: / AGE / SEX: 78 / M ADM STATUS: REG ER SERVICE 40 ORDERING PHYSICIAN: ASHU JIMÉNEZ DO PROCEDURE(s): LWRI - L WRIST 3+ VIEW XRAY REASON: pain swelling ORDER NUMBER(s): [id number], ACCESSION NUMBER(s): [id number] CLINICAL INDICATION: pain swelling of the left wrist TECHNIQUE: XY L WRIST 3+ VIEW XRAY Comparison: None FINDINGS/IMPRESSION: : There is no evidence of acute fracture or dislocation. 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 Calcified atherosclerosis. ATED BY: ARPAN HATHAWAY MD DICTATED DATE/TIME: 04/28/242119 SIGNED BY: ARPAN HATHAWAY MD SIGNED DATE/TIME: 04/28/242119 CC: [place] [id number] Ph: [phone] DIAGNOSTIC IMAGING Diagnostic Imaging Report : [id number] Signed PATIENT: FRANCO JAEGER ACCT: [id number] UNIT: [id number] : 1945 LOC: ER ROOM / BED: / AGE / SEX: 78 / M ADM STATUS: REG ER SERVICE 40 ORDERING PHYSICIAN: ASHU JIMÉNEZ DO PROCEDURE(s): LUDVT - LT Upper DVT REASON: pain swelling ORDER NUMBER(s): [id number], ACCESSION NUMBER(s): [id number] Upper Extremity Venous Duplex Clinical History: pain swelling Comparison: None Technique: Duplex Doppler evaluation of the venous system of the left lower neck and upper extremity including color Doppler and spectral/pulsed waveform analysis was performed. Findings: The internal jugular vein demonstrates appropriate compressibility and waveform variability. The subclavian vein is patent on color Doppler evaluation without intraluminal thrombus and demonstrates waveform variability. The visualized portion of the brachiocephalic vein is patent on color Doppler evaluation without intraluminal thrombus and demonstrates waveform variability. The axillary vein demonstrates appropriate compressibility and waveform variability. The brachial veins demonstrate appropriate compressibility and patency on Doppler evaluation. The radial and ulnar veins show Doppler patency. The basilic vein demonstrates appropriate compressibility and patency on Doppler evaluation. The cephalic vein demonstrates appropriate compressibility and patency on Dopp ler evaluation. Impression: 1. No venous thrombus identified in the left upper extremity vessels evaluated above. If clinical concern/symptoms persist or worsen, short-interval follow-up study is suggested. ATED BY: VERONCIA GARCIA MD DICTATED DATE/TIME: 04/28/242056 SIGNED BY: VERONICA GARCIA MD SIGNED DATE/TIME: 04/28/242056 CC: [place] [id number] Ph: [phone] DIAGNOSTIC IMAGING Diagnostic Imaging Report : [id number] Signed PATIENT: FRANCO JAEGER ACCT: [id number] UNIT: [id number] : 1945 LOC: ER ROOM / BED: / AGE / SEX: 78 / M ADM STATUS: REG ER SERVICE 40 ORDERING PHYSICIAN: ASHU JIMÉNEZ DO PROCEDURE(s): UPEWO - UPPER EXTREMITY WO CONTRAST REASON: pain swelling LT ORDER NUMBER(s): [id number], ACCESSION NUMBER(s): [id number] EXAM: CT UPPER EXTREMITY WO CONTRAST INDICATION: pain swelling LT EXAM DATE: 04/28/2024 08:18 PM COMPARISON: None TECHNIQUE: Multiple axial CT images of the left upper extremity from the mid left humerus to the hand were obtained using bone algorithm. Axial and coronal reformatting was done. Bone and soft tissue windows were reviewed. Radiation Dose Information: CT Dose: CTDI volume is 32.18 mGy. Dose-length product is 2411.44 mGy*cm Findings: Normal mineralization and alignment. 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 There is mild osteoarthritis of the interphalangeal joints. There is no acute fracture. No focal osteopenia or cortical destruction to suggest osteomyelitis. There is calcified atherosclerosis. There is subcutaneous edema which starts just above the level of the elbow and becomes more moderate in the distal left forearm to the dorsum of the left hand. There is no well-formed fluid collection or soft tissue gas. Impression: 1. 1. No acute fracture or traumatic malalignment. No focal osteopenia to suggest acute osteomyelitis. 2. Subcutaneous edema in the left arm which becomes more moderate in the distal left forearm to the dorsum of the left hand. No well-formed fluid collection to suggest abscess or soft tissue gas. 3. 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 ATED BY: ARPAN HATHAWAY MD DICTATED DATE/TIME: 04/28/242156 SIGNED BY: ARPAN HATHAWAY MD SIGNED DATE/TIME: 04/28/242156 CC: Comments Patient presented with the above HPI. Left hand swelling and pain workup was initiated. patient was found with the above mentioned diagnosis. the following medications were ordered: Omnipaque the following tests were ordered: left wrist X-ray, CT left upper extremity w/o contrast, CT upper extremity w/o contrast, LT upper DVT US, uric acid, creatine kinase, blood culture, erythrocyte sediment, lactic acid, CMP, CBC, BNP, C- reactive protein Patient ED course and VS have been stabilized. Patient has been reassessed in the ED and remained in a stable condition. Pertinent incidental findings were discussed with the patient and/or family. Patient/family voices understanding and is agreeable with plan. Patient has been observed in the ED adequate length of time to insure improvement/stability. Escalation of care considered: Consideration of escalation to observation or admission Patient was ADMITTED to the medicine team for further evaluation and treatment of their presentation. All the reports of any imaging studies that were ordered by myself were reviewed by myself. Critical Care Note Critical Care Time?: No Departure Time of Disposition: 21:38 Disposition: 09 ADMITTED INPATIENT Diagnosis: Left hand/wrist cellulitis and swelling Condition: Guarded Comments Telemetry I personally scribed for ASHU JIMÉNEZ DO ([email or web address]) on 04/28/24 at 21:53. Electronically submitted by Martir Ariza ([email or web address]). I personally scribed for ASHU JIMÉNEZ DO ([email or web address]) on 04/29/24 at 00:13. Electronically submitted by Martir Ariza ([email or web address]). ASHU JIMÉNEZ DO Apr 28, 2024 19:54
[2024-04-28] MEDS: IOHEXOL 300 MG/ML 100ML BOTTLE IJ ONE (20:21)
[2024-04-28 20:23] LABS: Basophils # (auto) 0.1 10 ^3/uL (0-0.2); Basophils % (auto) 0.6 % (0.0-2.0); Eosinophils # (auto) 0.2 10 ^3/uL (0-0.8); Eosinophils % (auto) 1.6 % (0.0-7.0); Hematocrit 39.4 % (41.0-53.0); Hemoglobin 12.8 g/dL (13.5-17.5); Lymphocytes # (auto) 1.4 10 ^3/uL (0.4-5.4); Lymphocytes % (auto) 13.5 % (10.0-50.0); Mean Corpuscular Hemoglobin 27.7 pg (28.0-32.0); Mean Corpuscular Hgb Conc. 32.4 g/dL (32.0-36.0); Mean Corpuscular Volume 85.6 fL (80.0-100.0); Monocytes # (auto) 0.8 10 ^3/uL (0-1.3); Monocytes % (auto) 8.5 % (0.0-12.0); Neutrophils # (auto) 7.6 10 ^3/uL (1.6-8.6); Neutrophils % (auto) 75.8 % (37.0-80.0); Platelet Count (auto) 277 10^3/uL (140-450)
[2024-04-28 20:38] LABS: Alanine Aminotransferase 23 U/L (7-40); Albumin 4.4 g/dL (3.2-4.8); Alkaline Phosphatase 63 U/L (46-116); Anion Gap 11 (5-15); Aspartate Aminotransferase 15 U/L (13-40); BUN/Creatinine Ratio 19.6 (10.0-20.0); Calcium 9.4 mg/dL (8.7-10.4); Carbon Dioxide 20 mmol/L (20-31); Potassium 4.7 mmol/L (3.5-5.1); Sodium 139 mmol/L (136-145)
[2024-04-28 20:39] LABS: Bilirubin, Total 0.6 mg/dL (0.2-1.0); Creatine Kinase IFCC 62 U/L (46-171); Total Protein 7.3 g/dL (5.7-8.2)
[2024-04-28 20:53] LABS: Blood Urea Nitrogen 30 mg/dL (9-23); Chloride 108 mmol/L (98-107); Glucose 113 mg/dL (74-106)
--- NOTE | 2024-04-28 20:59 | DVH ---
Upper Extremity Venous Duplex Clinical History: pain swelling Comparison: None Technique: Duplex Doppler evaluation of the venous system of the left lower neck and upper extremity including c olor Doppler and spectral/pulsed waveform analysis was performed. Findings: The internal jugular vein demonstrates appropriate compressibility and waveform variability. The subclavian vein is patent on color Doppler evaluation without intraluminal thrombus and demonstra amanda waveform variability. The visualized portion of the brachiocephalic vein is patent on color Doppler evaluation without intr aluminal thrombus and demonstrates waveform variability. The axillary vein demonstrates appropriate compressibility and waveform variability. The brachial veins demonstrate appropriate compressibility and patency on Doppler evaluation. The radial and ulnar veins show Doppler patency. The basilic vein demonstrates appropriate compressibility and patency on Doppler evaluation. The cephalic vein demonstrates appropriate compressibility and patency on Doppler evaluation. Impression: 1. No venous thrombus identified in the left upper extremity vessels evaluated above. If clinical co ncern/symptoms persist or worsen, short-interval follow-up study is suggested.
[2024-04-28 21:00] LABS: Erythrocyte Sedimentation Rate 41 mm/hr (0-20)
--- NOTE | 2024-04-28 21:22 | DVH ---
CLINICAL INDICATION: pain swelling of the left wrist TECHNIQUE: XY L WRIST 3+ VIEW XRAY Comparison: None FINDINGS/IMPRESSION: : There is no evidence of acute fracture or dislocation. 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 Calcified atherosclero sis.
--- NOTE | 2024-04-28 21:59 | DVH ---
EXAM: CT UPPER EXTREMITY WO CONTRAST INDICATION: pain swelling LT EXAM DATE: 04/28/2024 08:18 PM COMPARISON: None TECHNIQUE: Multiple axial CT images of the left upper extremity from the mid left humerus to the hand were obtained using bone algorithm. Axial and coronal reformatting was done. Bone and soft tissue wi ndows were reviewed. Radiation Dose Information: CT Dose: CTDI volume is 32.18 mGy. Dose-length product is 2411.44 mGy*cm Findings: Normal mineralization and alignment. 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 There is mild osteoarthritis of the interphalangeal joints. There is no acute f racture. No focal osteopenia or cortical destruction to suggest osteomyelitis. There is calcified ath erosclerosis. There is subcutaneous edema which starts just above the level of the elbow and becomes more moderate in the distal left forearm to the dorsum of the left hand. There is no well-formed flui d collection or soft tissue gas. Impression: 1. 1. No acute fracture or traumatic malalignment. No focal osteopenia to suggest acute osteomyelitis. 2. Subcutaneous edema in the left arm which becomes more moderate in the distal left forearm to the d orsum of the left hand. No well-formed fluid collection to suggest abscess or soft tissue gas. 3. 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
[2024-04-28] MEDS: HYDROcodone-ACET 5/325MG TAB PO ONE (22:40)
[2024-04-28] MEDS ORDERED: ACETAMINOPHEN 325 MG TAB PO PRN (23:15)
[2024-04-28] MEDS ORDERED: ONDANSETRON HCL 4 MG/2 ML VIAL IV PRN (23:15)
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
[2024-04-28] MEDS: CLINDAMYCIN 600MG IV 50 ML IV ONE (23:43)
[2024-04-29] VITALS (8 sets, daily range): BP systolic 134–164; BP diastolic 49–84; PULSE 51–79; RESP 16–20; TEMP 97.4–98.5; O2SAT 95–98
[2024-04-29] MEDS: cloNIDine HCL 0.1 MG TAB PO PRN (00:18)
[2024-04-29] MEDS ORDERED: LISI40TA16 PO (02:03)
[2024-04-29] MEDS: HYDROcodone-ACET 5/325MG TAB PO PRN (02:07)
[2024-04-29] MEDS: CLINDAMYCIN 600MG IV 50 ML IV SCH (05:27)
[2024-04-29] MEDS: MORPHINE SULFATE INJ 2 MG/ml SYRG IV PRN (05:33)
[2024-04-29 07:04] LABS: Basophils # (auto) 0.1 10 ^3/uL (0-0.2); Basophils % (auto) 0.6 % (0.0-2.0); Eosinophils # (auto) 0.3 10 ^3/uL (0-0.8); Hematocrit 37.4 % (41.0-53.0); Hemoglobin 12.1 g/dL (13.5-17.5); Lymphocytes # (auto) 1.8 10 ^3/uL (0.4-5.4); Lymphocytes % (auto) 20.7 % (10.0-50.0); Mean Corpuscular Hgb Conc. 32.4 g/dL (32.0-36.0); Mean Corpuscular Volume 86.6 fL (80.0-100.0); Monocytes # (auto) 1.4 10 ^3/uL (0-1.3); Monocytes % (auto) 15.5 % (0.0-12.0); Neutrophils # (auto) 5.3 10 ^3/uL (1.6-8.6); Neutrophils % (auto) 60.2 % (37.0-80.0); Nucleated Red Blood Cells % 0.1 %; Platelet Count (auto) 236 10^3/uL (140-450); Red Blood Cells 4.32 10^6/uL (4.5-5.90); Red Cell Distribution Width 16.7 % (11.8-14.3); White Blood Cell 8.8 10^3/uL (4.4-10.8)
[2024-04-29 07:13] LABS: Calcium 8.9 mg/dL (8.7-10.4); Carbon Dioxide 22 mmol/L (20-31)
[2024-04-29 07:14] LABS: Anion Gap 9 (5-15); Potassium 4.4 mmol/L (3.5-5.1); Sodium 138 mmol/L (136-145)
[2024-04-29 07:18] LABS: Glucose 86 mg/dL (74-106)
[2024-04-29 07:19] LABS: BUN/Creatinine Ratio 21.9 (10.0-20.0)
[2024-04-29 07:25] LABS: Blood Urea Nitrogen 30 mg/dL (9-23); Chloride 107 mmol/L (98-107)
[2024-04-29] MEDS: COLCHICINE 0.6 MG CAP PO SCH (09:56)
[2024-04-29] MEDS: NIFEdipine ER 30 MG TAB PO SCH (09:57)
[2024-04-29] MEDS: ASPirin 81 mg TAB PO SCH (09:58)
[2024-04-29] MEDS: hydroCHLOROthiazide 25 MG TAB PO SCH (09:58)
[2024-04-29] MEDS: ENOXAPARIN SOD 30 MG/0.3 ML SYRINGE SC SCH (10:00)
[2024-04-29] MEDS ORDERED: LISINOPRIL 20 MG TAB PO SCH (10:00)
[2024-04-29] MEDS ORDERED: FUROSEMIDE 40 MG TAB PO SCH (10:00)
[2024-04-29] MEDS: NIFEdipine ER 30 MG TAB PO ONE ×2 (15:08→18:29)
[2024-04-29] MEDS: methylPREDNISolone SOD SUCC 40 MG/ML VL IV ONE (15:09)
[2024-04-29] MEDS: AMPICILLIN & SULBACTAM SODIUM 3 GM in SODIUM CHL 0.9% 100 ML IV SCH (15:43)
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
[2024-04-29] MEDS ORDERED: MORPHINE SULFATE INJ 2 MG/ml SYRG IV PRN (17:45)
[2024-04-29] MEDS ORDERED: hydrALAZINE HCL 20 MG/ML VL IV PRN (17:45)
[2024-04-29] MEDS: PANTOPRAZOLE 40 MG TAB PO ONE (18:29)
[2024-04-29] MEDS: SODIUM CHLORIDE 0.9% 500 ML IV ONE (23:59)
[2024-04-30 00:45] VITALS: BP 121/42; PULSE 57; RESP 18; TEMP 98; O2SAT 94
[2024-04-30 05:00] VITALS: BP 127/49; PULSE 53; RESP 18; TEMP 97.9; O2SAT 95
[2024-04-30] MEDS: PANTOPRAZOLE 40 MG TAB PO SCH (05:02)
--- NOTE | 2024-04-30 08:03 | ECG ---
[facility] Test Date: 2024-04-29 Test Time: 17:57:12 Pat Name: FRANCO JAEGER Department: Respiratoy Room: 0250 B Gender: M Security Attendant: MORRO : 1945 Requested By: SIMON PEÑA Order Number: [id number] Reading MD: Elmer Begum Measurements Intervals [place] Rate: 66 P: 60 SD: 165 QRS: 70 QRSD: 99 T: 70 QT: 430 QTc: 451 Interpretive Statements Sinus rhythm Borderline low voltage, extremity leads Baseline wander in lead(s) V2 Electronically Signed On 04-30-2024 8:15:42 PST by Elmer Begum Please click the below link to view image of tracing.
[2024-04-30 08:41] LABS: Anion Gap 10 (5-15); Potassium 4.6 mmol/L (3.5-5.1)
[2024-04-30 08:43] LABS: Calcium 8.9 mg/dL (8.7-10.4)
[2024-04-30 08:44] LABS: Carbon Dioxide 17 mmol/L (20-31); Chloride 108 mmol/L (98-107); Sodium 135 mmol/L (136-145)
[2024-04-30 08:48] VITALS: BP 144/60; PULSE 51; RESP 18; TEMP 98.3; O2SAT 96
[2024-04-30 08:48] LABS: Blood Urea Nitrogen 20 mg/dL (9-23)
[2024-04-30 08:50] LABS: Glucose 114 mg/dL (74-106)
[2024-04-30] MEDS: methylPREDNISolone SOD SUCC 40 MG/ML VL IV SCH (10:03)
[2024-04-30] MEDS: NIFEdipine ER 30 MG TAB PO SCH (10:05)
[2024-04-30] MEDS: ENOXAPARIN SOD 40 MG/0.4 ML SYRINGE SC SCH (10:07)
[2024-04-30 10:36] LABS: Basophils # (auto) 0 10 ^3/uL (0-0.2); Basophils % (auto) 0.3 % (0.0-2.0); Eosinophils # (auto) 0 10 ^3/uL (0-0.8); Hematocrit 36.9 % (41.0-53.0); Hemoglobin 11.9 g/dL (13.5-17.5); Lymphocytes # (auto) 1.2 10 ^3/uL (0.4-5.4); Lymphocytes % (auto) 13.7 % (10.0-50.0); Mean Corpuscular Hemoglobin 27.2 pg (28.0-32.0); Mean Corpuscular Hgb Conc. 32.2 g/dL (32.0-36.0); Mean Corpuscular Volume 84.4 fL (80.0-100.0); Monocytes # (auto) 0.9 10 ^3/uL (0-1.3); Monocytes % (auto) 10.2 % (0.0-12.0); Neutrophils # (auto) 6.8 10 ^3/uL (1.6-8.6); Neutrophils % (auto) 75.8 % (37.0-80.0); Platelet Count (auto) 275 10^3/uL (140-450); Red Blood Cells 4.38 10^6/uL (4.5-5.90); Red Cell Distribution Width 16.6 % (11.8-14.3)
[2024-04-30] MEDS ORDERED: COLC1CAP PO (10:47)
[2024-04-30] MEDS ORDERED: AUG875T PO (10:47)
[2024-04-30] MEDS ORDERED: METH4PAK PO (10:47)
[2024-04-30] MEDS ORDERED: ASPI-325 PO (10:48)
[2024-04-30] MEDS: TETANUS-DIPTH-ACEL PERTUSSIS 0.5ML SYR Tdap IM ONE (11:39)
[2024-04-30 12:37] VITALS: BP 132/72; PULSE 54; RESP 18; TEMP 97.3; O2SAT 96
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
== END 2024-04-30 13:08 | disposition home or self-care (01) | DRG 603 ==
LOC: ER 18:45 → OVERFLOW 23:14 → EAST 04-29 01:30
PROVIDERS: ADMIT Internal Medicine; ATTEND Internal Medicine
DX: L03.114 Cellulitis of left upper limb (principal); I13.0 Hypertensive heart and chronic kidney disease with heart failure and stage 1 through stage 4 chronic kidney disease, or unspecified chronic kidney disease; I50.30 Unspecified diastolic (congestive) heart failure; N18.9 Chronic kidney disease, unspecified; M10.9 Gout, unspecified; J44.9 Chronic obstructive pulmonary disease, unspecified; G62.9 Polyneuropathy, unspecified; E78.5 Hyperlipidemia, unspecified; Z86.73 Personal history of transient ischemic attack (TIA), and cerebral infarction without residual deficits; Z87.891 Personal history of nicotine dependence
CPT/HCPCS: 36415; 73110; 73200; 80048; 80053; 82550; 83605; 83880; 84550; 85025; 85652; 86141; 87040; 90715; 93005; 93971; 96365; G0378; J3490

== ENCOUNTER 2024-06-06 08:14 | Emergency (ER) | payer OTHER, MEDICAID ==
[~2024-06-06] VITALS: Ht 175.3 cm; Wt 103.1 kg
[~2024-06-06 08:14] MED LIST changes: +ASPI-325 PO; -ASPI-543 PO; +AUG875T PO; -AZIT-74 PO; -AZIT500T66 PO; -BENZ100C97 PO; -BUSP10TA31 PO; -CHOL20007 PO; -FUR40T PO; -HYDR-2792 PO; -HYDR25TA5 PO; -LEVO500T31 PO; -LISI20TA56 PO; +METH4PAK PO; -METO25TA5 PO; -OMEP20TA PO; -POT20T PO; -PRE5T PO; -PRED10TA PO; -PRED20TA2 PO; -TEMA15CA2 PO
[2024-06-06 08:38] VITALS: BP 147/58; PULSE 71; RESP 18; TEMP 99.1; O2SAT 96
--- NOTE | 2024-06-06 08:59 | ED.PDOC ---
Musculoskeletal HPI Comments A 78 YEAR OLD MALE PRESENTS TO THE ED WITH COMPLAINT OF LEFT HAND AND WRIST PAIN WITH SWELLING. PATIENT STATES HE HAS A HISTORY OF GOUT AND HAS BEEN EXPERIENCING LEFT HAND PAIN, LEFT WRIST PAIN, AND LEFT HAND SWELLING FOR THE PAST 3 DAYS. PT WAS IN THIS ER 2 MONTHS AGO FOR SAME COMPLAINTS AND DIAGNOSED GOUT. PT DID NOT TAKE HIS GOUT MEDICATION AT HOME. PATIENT DENIES FALL INJURY, FEVER, CHILLS, SHORTNESS OF BREATH, CHEST PAIN, ABDOMINAL PAIN, NAUSEA, VOMITING, HEADACHE, OR OTHER COMPLAINTS. NO OTHER SYMPTOMS OR MODIFYING FACTORS AT THIS TIME. PATIENT IS ALERT, ORIENTED X 4, AND HAS STEADY GAIT. Chief Complaint: Upper Extremity Time Seen by MD: 08:26 Primary Care Provider: IA Reviewed Notes: Nurses Notes, Medications, Allergies Allergies: Coded Allergies: NO KNOWN ALLERGIES (Unverified , 02/27/12) Home Meds Active Scripts Colchicine (Colchicine) 0.6 Mg Cap, 0.6 MG PO BID for 10 Days, #20 CAP 0 Refills Prov:PARUL GOMEZ 06/06/24 Methylprednisolone (Medrol Dosepak) 4 Mg Huan, 4 MG PO UD for 6 Days, #21 TAB 0 Refills UAD Prov:PARUL GOMEZ 06/06/24 Aspirin (Aspirin Low Dose) 81 Mg Tab, 81 MG PO DAILY for 30 Days, #30 TAB 0 Refills Prov:SIMON PEÑA RESIDENT 04/30/24 Amoxicillin & Pot Clavulanate (AUGMENTIN TABLET) 875 Mg Tb, 875 MG PO BID for 7 Days, #14 TAB 0 Refills Prov:SIMON PEÑA RESIDENT 04/30/24 Nifedipine (Nifedipine ER) 30 Mg Tab, 30 MG PO DAILY for 90 Days, #90 TAB Prov:ADITYA GUILLEN NP 05/29/22 Reported Medications Lisinopril (Lisinopril) 40 Mg Tab, 2 TAB PO DAILY, TAB 04/29/24 Albuterol Sulfate (Albuterol Sulfate) 2 Mg Tab, 90 MCG INH, MG 04/19/21 Information Source: Patient Mode of Arrival: Ambulatory Location: Left Extremity Location: Hand, Wrist Timing: Days Prehospital treatment: None Severity: Moderate Able to Move Extremity: Yes Bear Weight: Fully Pain: Moderate Mechanism: No Trauma, Spontaneous Circumstances: Spontaneous Onset of Symptoms: Spontaneous Symptoms: Swelling, Pain, Erythema, Warmth DVT Risk Factors: NONE Last Tetanus: Unknown History of: Gout, Arthritis Associated signs and symptoms: Wrist pain, Hand pain Past Medical History PAST MEDICAL HISTORY: Arthritis, COPD, Gout, High Lipids, HTN, TIA Surgical History: Denies all surgeries Family History Family History: Reviewed,noncontributory to illness Social History Smoker: Quit Greater Than 1 Year, Cigarettes, Less Than 1 Pack/Day Alcohol: Occasionally Drugs: Denies Drug Use Lives In: Home Constitutional: denies: chills, diaphoresis, fatigue, fever, malaise, sweats, weakness, others EENTM: denies: blurred vision, double vision, ear bleeding, ear discharge, ear drainage, ear pain, ear ringing, eye pain, eye redness, hearing loss, mouth pain, mouth swelling, nasal discharge, nose bleeding, nose congestion, nose pa in, photophobia, tearing, throat pain, throat swelling, voice changes, others Respiratory: denies: cough, hemoptysis, orthopnea, SOB at rest, shortness of breath, SOB with excertion, stridor, wheezing, others Cardiovascular: denies: chest pain, dizzy spells, diaphoresis, Dyspnea on exertion, edema, irregular heart beat, left arm pain, lightheadedness, palpitations, PND, syncope, others Gastrointestinal: denies: abdomen distended, abdominal pain, blood streaked bowels, constipated, diarrhea, dysphagia, difficulty swallowing, hematemesis, melena, nausea, poor appetite, poor fluid intake, rectal bleeding, rectal pain, vomiting, others Genitourinary: denies: burning, dysuria, flank pain, frequency, hematuria, incontinence, penile discharge, penile sore, pain, testicle pain, testicle swelling, urgency, others Neurological: denies: dizziness, fainting, headache, left sided numbness, left sided weakness, numbness, paresthesia, pre-existing deficit, right sided numbness, right sided weakness, seizure, speech problems, tingling, tremors, weakness, others Musculoskeletal: reports: joint pain, joint swelling, others (LEFT HAND PAIN, LEFT WRIST PAIN, LEFT HAND SWELLING); denies: back pain, gout, muscle pain, muscle stiffness, neck pain Integumetry: denies: bruises, change in color, change in hair/nails, dryness, laceration, lesions, lumps, rash, wounds, others Allergic/Immunocompromised: denies: Difficulty Healing, Frequent Infections, Hives, Itching, others Hematologic/Lymphatic: denies: anemia, blood clots, easy bleeding, easy bruising, swollen glands, others Endocrine: denies: excessive hunger, excessive sweating, excessive thirst, excessive urination, flushing, intolerance to cold, intolerance to heat, unexplained weight gain, unexplained weight loss, others Psychiatric: denies: anxiety, bipolar disorder, depression, hopeless, panic disorder, schizophrenia, sleepless, suicidal, others All Other Systems: Reviewed and Negative Physical Exam General Appearance: No Apparent Distress, Obese HEENT: Normal ENT Inspection, PERRL/EOMI, Pharynx Normal, TMs Normal Neck: Full Range of Motion, Non-Tender, Normal, Normal Inspection Respiratory: Chest Non-Tender, Lungs Clear, No Accessory Muscle Use, No Respiratory Distress, Normal Breath Sounds Cardiovascular: No Edema, No JVD, No Murmur, No Gallop, Normal Peripheral Pulses, Regular Rate/Rhythm Breast Exam: Deferred Gastrointestinal: No Organomegaly, Non Tender, No Pulsatile Mass, Normal Bowel Sounds, Soft Genitalia: Deferred Pelvic: Deferred Rectal: Deferred Extremities: No calf tenderness, Normal capillary refill, Normal range of motion, No pedal edema, Swelling (ERYTHEMA AND SWELLING WITH HEAT ON LEFT HAND AND WRIST, NO BONY TENDERNESS AND DEFORMITY. ), Tender (AND REDNESS AND SWELLING ON LEFT WRIST AND DORSAL HAND. +GOUT ARTHRITIS. ) Musculoskeletal : Apperance: Normal Neurologic: Alert, grubber II-XII nml as Tested, No Motor Deficits, Normal Affect, Normal Mood, No Sensory Deficits Cerebellar Function: Normal Reflexes: Normal Skin: Dry, Normal Color, Warm, Other (LOCALIZED REDNESS, SWELLING AND HEAT ON LEFT HAND AND WRIST, +GOUT. ) Peripheral Pulses: 2+ carotid (R), 2+ carotid (L), 2+ Radial (R), 2+ Radial (L) Lymphatic: No Adenopathy Was a procedure done? Was a procedure done?: No Differential Diagnosis EXT Differential Diagnosis: Cellulitis, Sprain, Gout, DJD, Strain, Arthritis, Bursitis X-Ray, Labs, Meds, VS Vital Signs Date Time Temp Pulse Resp B/P (MAP) Pulse Ox O2 Delivery O2 Flow Rate FiO2 06/06/24 08:38 71 18 96 Room Air 06/06/24 08:38 99.1 71 18 147/58 (87) 96 99.1 06/06/24 08:27 99.1 71 18 147/58 (87) 96 Lab Test 06/06/24 09:01 Range/Units White Blood Count 11.7 H 4.4-10.8 10^3/uL Red Blood Count 4.55 4.5-5.90 10^6/uL Hemoglobin 12.5 L 13.5-17.5 g/dL Hematocrit 38.3 L 41.0-53.0 % Mean Corpuscular Volume 84.3 80.0-100.0 fL Mean Corpuscular Hemoglobin 27.5 L 28.0-32.0 pg Mean Corpuscular Hemoglobin Concent 32.7 32.0-36.0 g/dL Red Cell Distribution Width 17.8 H 11.8-14.3 % Platelet Count 237 140-450 10^3/uL Mean Platelet Volume 8.2 6.9-10.8 fL Neutrophils (%) (Auto) 78.6 37.0-80.0 % Lymphocytes (%) (Auto) 9.3 L 10.0-50.0 % Monocytes (%) (Auto) 8.6 0.0-12.0 % Eosinophils (%) (Auto) 3.0 0.0-7.0 % Basophils (%) (Auto) 0.5 0.0-2.0 % Neutrophils # (Auto) 9.2 H 1.6-8.6 10 ^3/uL Lymphocytes # (Auto) 1.1 0.4-5.4 10 ^3/uL Monocytes # (Auto) 1.0 0-1.3 10 ^3/uL Eosinophils # (Auto) 0.3 0-0.8 10 ^3/uL Basophils # (Auto) 0.1 0-0.2 10 ^3/uL Nucleated Red Blood Cells 0.0 % Sodium Level 139 136-145 mmol/L Potassium Level 4.3 3.5-5.1 mmol/L Chloride Level 108 H 98-107 mmol/L Carbon Dioxide Level 22 20-31 mmol/L Anion Gap 9 5-15 Blood Urea Nitrogen 27 H 9-23 mg/dL Creatinine 1.42 H 0.700-1.30 mg/dL Glomerular Filtration Rate Calc 50 >90 mL/min BUN/Creatinine Ratio 19.0 10.0-20.0 Serum Glucose 122 H 74-106 mg/dL Uric Acid Pending Calcium Level 9.2 8.7-10.4 mg/dL Current Medications Medications (Trade) Dose Ordered Sig/Destiney Route Start Time Stop Time Status Last Admin Methylprednisolone Sodium Succinate (Solu Medrol) 125 mg ONCE ONCE IM 06/06/24 09:30 06/06/24 09:31 DC 06/06/24 09:34 Ketorolac Tromethamine (Toradol Injection) 30 mg ONCE ONCE IM 06/06/24 09:30 06/06/24 09:31 DC 06/06/24 09:34 CLINICAL INFORMATION: 78 years old, Male; PAIN AND REDNESS. TECHNIQUE: 3 views of the left hand were obtained. COMPARISON: XY R HAND 3 VIEW XRAY on DOS: 02/08/24 FINDINGS: No acute fracture or dislocation. Severe osteoarthritic changes of the 1st carpometacarpal joint with severe joint space narrowing, subchondral sclerosis, and marginal osteophytes. Moderate arthritic changes of the triscaphe joint. Moderate joint space narrowing of the radiocarpal joint. Moderate to severe arthritic changes of the 2nd through 4th d IP joints and in the 1st digit interphalangeal joint. Moderate arthritic changes of the 1st MCP joint. Chronic appearing periosteal reaction along the distal radius, may be sequelae of prior adjacent soft tissue inflammation. Mild diffuse soft tissue swelling around the wrist and hand. Dense arterial calcification noted. IMPRESSION: 1. No evidence of acute bony abnormality. 2. Arthritic changes and additional findings as detailed above. ATED BY: ABIMAEL LAWS DO DICTATED DATE/TIME: 06/06/24924 SIGNED BY: ABIMAEL LAWS DO SIGNED DATE/TIME: 06/06/24924 CC: X-Ray, Labs, Meds, VS Comment EXTERNAL MEDICAL RECORDS REVIEWED: [NONE] INDEPENDENT HISTORIANS: [NONE] SOCIAL DETERMINANTS OF HEALTH: [NONE] LABS ORDERED: NONE REVIEWED AND INTERPRETED RESULTS: NONE IMAGING ORDERED: XR HAND LT TREATMENTS ORDERED: SOLU-MEDROL 125MG IM, TORADOL 30MG IM PROCEDURES PERFORMED: NONE CRITICAL CARE TIME: NONE I HAVE DISCUSSED THE PATIENT WITH THE ATTENDING PHYSICIAN DR. ZARCO AND SHE AGREES WITH THE PATIENT'S PLAN OF CARE AND DISPOSITION. BASED ON HISTORY OF PRESENT ILLNESS, AND PHYSICAL EXAM, PATIENT WILL BE DISCHARGED HOME. DISCUSSED PLAN FOR DISCHARGE HOME WITH RX [COLCHICINE AND PREDNISONE]. MEDICATION WARNINGS GIVEN. SHARED DECISION MAKING: PATIENT INSTRUCTED TO FOLLOW UP WITH PRIMARY CARE PROVIDER IN 1-2 DAYS FOR RE-EVALUATION OF SYMPTOMS. PATIENT VERBALIZES UNDERSTANDING TO RETURN TO ED FOR NEW OR WORSENING SYMPTOMS OR IF FOLLOW UP WITH PCP CANNOT BE OBTAINED. PATIENT FEELS COMFORTABLE GOING HOME AT THIS TIME. ALL QUESTIONS ADDRESSED AT TIME OF DISCHARGE. Images Reviewed?: Images reviewed and evaluated by me Time of 1ST Reevaluation: 10:00 Reevaluation 1ST: Improved Patient Education/Counseling: Diagnosis, Treatment, Need For Follow Up Family Education/Counseling: Diagnosis, Treatment, Need For Follow Up Medical Screening: No EMC Exist At This Time Departure 1 Departure Time of Disposition: 10:00 Impression: Primary Impression: Gouty arthritis of left wrist Additional Impression: Gouty arthritis of left hand Disposition: 01 HOME / SELF CARE / HOMELESS Condition: Stable Additional Instructions: FOLLOW-UP WITH PCP IN 1 TO 2 DAYS. TAKE MEDICATIONS PRESCRIBED. RETURN TO ED FOR ANY NEW OR WORSENING SYMPTOMS. e-Prescriptions Colchicine (Colchicine) 0.6 Mg Cap 0.6 MG PO BID for 10 Days, #20 CAP 0 Refills Prov: PARUL GOMEZ 06/06/24 Methylprednisolone (Medrol Dosepak) 4 Mg Huan 4 MG PO UD for 6 Days, #21 TAB 0 Refills UAD Prov: PARUL GOMEZ 06/06/24 Discharged With: Self, Relative Critical Care Note Critical Care Time?: No Stability Stability form required: No I personally scribed for PARUL GOMEZ ([email or web address]) on 06/06/24 at 08:59. Elect ronically submitted by Delonte Rosario ([employer] I personally scribed for PARUL GOMEZ ([email or web address]) on 06/06/24 at 09:25. Electro nically submitted by Delonte Rosario ([employer]). I personally scribed for PARUL GOMEZ ([email or web address]) on 06/06/24 at 09:31. Electroni damian submitted by Delonte Rosario ([email or web address]). PARUL GOMEZ Jun 06, 2024 08:59
[2024-06-06 09:19] LABS: Basophils # (auto) 0.1 10 ^3/uL (0-0.2); Basophils % (auto) 0.5 % (0.0-2.0); Eosinophils # (auto) 0.3 10 ^3/uL (0-0.8); Hematocrit 38.3 % (41.0-53.0); Hemoglobin 12.5 g/dL (13.5-17.5); Lymphocytes # (auto) 1.1 10 ^3/uL (0.4-5.4); Lymphocytes % (auto) 9.3 % (10.0-50.0); Mean Corpuscular Hemoglobin 27.5 pg (28.0-32.0); Mean Corpuscular Hgb Conc. 32.7 g/dL (32.0-36.0); Mean Corpuscular Volume 84.3 fL (80.0-100.0); Monocytes % (auto) 8.6 % (0.0-12.0); Neutrophils # (auto) 9.2 10 ^3/uL (1.6-8.6); Neutrophils % (auto) 78.6 % (37.0-80.0); Platelet Count (auto) 237 10^3/uL (140-450); Red Blood Cells 4.55 10^6/uL (4.5-5.90); Red Cell Distribution Width 17.8 % (11.8-14.3); White Blood Cell 11.7 10^3/uL (4.4-10.8)
[2024-06-06 09:28] LABS: Potassium 4.3 mmol/L (3.5-5.1); Sodium 139 mmol/L (136-145)
--- NOTE | 2024-06-06 09:28 | DVH ---
CLINICAL INFORMATION: 78 years old, Male; PAIN AND REDNESS. TECHNIQUE: 3 views of the left hand were obtained. COMPARISON: XY R HAND 3 VIEW XRAY on DOS: 02/08/24 FINDINGS: No acute fracture or dislocation. Severe osteoarthritic changes of the 1st carpometacarpal joint with severe joint space narrowing, subchondral sclerosis, and marginal osteophytes. Moderate ar thritic changes of the triscaphe joint. Moderate joint space narrowing of the radiocarpal joint. Mode rate to severe arthritic changes of the 2nd through 4th d IP joints and in the 1st digit interphalang eal joint. Moderate arthritic changes of the 1st MCP joint. Chronic appearing periosteal reaction henry ng the distal radius, may be sequelae of prior adjacent soft tissue inflammation. Mild diffuse soft t issue swelling around the wrist and hand. Dense arterial calcification noted. IMPRESSION: 1. No evidence of acute bony abnormality. 2. Arthritic changes and additional findings as detailed above.
[2024-06-06 09:29] LABS: Anion Gap 9 (5-15); Carbon Dioxide 22 mmol/L (20-31)
[2024-06-06 09:30] LABS: Calcium 9.2 mg/dL (8.7-10.4)
[2024-06-06] MEDS: KETOROLAC TROMETH 60MG/2ML VIAL IM ONE (09:34)
[2024-06-06] MEDS: methylPREDNISolone SOD SUCC 125 MG/2 ML VL IM ONE (09:34)
[2024-06-06 09:45] LABS: Blood Urea Nitrogen 27 mg/dL (9-23); Chloride 108 mmol/L (98-107); Glucose 122 mg/dL (74-106)
[2024-06-06] MEDS ORDERED: COLC1CAP PO (09:57)
[2024-06-06] MEDS ORDERED: METH4PAK PO (09:57)
[2024-06-06 10:28] LABS: Uric Acid 9.3 mg/dL (3.7-9.2)
== END 2024-06-06 10:03 | disposition home or self-care (01) ==
LOC: ER 08:14
DX: M10.032 Idiopathic gout, left wrist (principal); M10.042 Idiopathic gout, left hand; J44.9 Chronic obstructive pulmonary disease, unspecified; I10 Essential (primary) hypertension; Z79.82 Long term (current) use of aspirin; Z79.899 Other long term (current) drug therapy; Z86.73 Personal history of transient ischemic attack (TIA), and cerebral infarction without residual deficits; Z87.891 Personal history of nicotine dependence
CPT/HCPCS: 36415; 73130; 80048; 84550; 85025; 96372; 99284; J1885; J2919

== ENCOUNTER 2024-08-19 12:18 | Inpatient (IN) | payer OTHER, MEDICARE, MEDICAID ==
[~2024-08-19] VITALS: Ht 175.3 cm; Wt 100.0 kg
--- NOTE | 2024-08-19 12:54 | ED.PDOC ---
History of Present Illness HPI Comments 79 y/o M, with PMHx of COPD, HTN, CKD, and HLD presents to the ED for CC of abnormal labs. Patient states, he had labs drawn yesterday (08/18/24) and received a phone call today to follow up with the ED for a further evaluation d/t elevated potassium levels. Patient denies weakness, fatigue, or nausea. No other symptoms or modifying factors present at this time. Time Seen by MD: 12:45 Primary Care Provider: IA Reviewed Notes: Nurses Notes, Medications, Allergies Allergies: Coded Allergies: NO KNOWN ALLERGIES (Unverified , 02/27/12) Home Meds Active Scripts Colchicine (Colchicine) 0.6 Mg Cap, 0.6 MG PO BID for 10 Days, #20 CAP 0 Refills Prov:PARUL GOMEZ 06/06/24 Methylprednisolone (Medrol Dosepak) 4 Mg Huan, 4 MG PO UD for 6 Days, #21 TAB 0 Refills UAD Prov:PARUL GOMEZ 06/06/24 Aspirin (Aspirin Low Dose) 81 Mg Tab, 81 MG PO DAILY for 30 Days, #30 TAB 0 Refills Prov:SIMON PEÑA RESIDENT 04/30/24 Amoxicillin & Pot Clavulanate (AUGMENTIN TABLET) 875 Mg Tb, 875 MG PO BID for 7 Days, #14 TAB 0 Refills Prov:SIMON PEÑA RESIDENT 04/30/24 Nifedipine (Nifedipine ER) 30 Mg Tab, 30 MG PO DAILY for 90 Days, #90 TAB Prov:ADITYA GUILLEN NP 05/29/22 Reported Medications Lisinopril (Lisinopril) 40 Mg Tab, 2 TAB PO DAILY, TAB 04/29/24 Albuterol Sulfate (Albuterol Sulfate) 2 Mg Tab, 90 MCG INH, MG 04/19/21 Information Source: Patient Mode of Arrival: Ambulatory Severity: Moderate Timing: Days Duration: Since onset Prehospital treatment: None Past Medical History PAST MEDICAL HISTORY: Arthritis, CKF, COPD, Gout, High Lipids, HTN, TIA Surgical History: Denies all surgeries Family History Family History: Reviewed,noncontributory to illness Social History Smoker: Quit Greater Than 1 Year, Cigarettes, Less Than 1 Pack/Day Alcohol: Occasionally Drugs: Denies Drug Use Lives In: Home Constitutional: denies: chills, diaphoresis, fatigue, fever, malaise, sweats, weakness, others EENTM: denies: blurred vision, double vision, ear bleeding, ear discharge, ear drainage, ear pain, ear ringing, eye pain, eye redness, hearing loss, mouth pain, mouth swelling, nasal discharge, nose bleeding, nose congestion, nose pain, photophobia, tearing, throat pain, throat swelling, voice changes, others Respiratory: denies: cough, hemoptysis, orthopnea, SOB at rest, shortness of breath, SOB with excertion, stridor, wheezing, others Cardiovascular: denies: chest pain, dizzy spells, diaphoresis, Dyspnea on exertion, edema, irregular heart beat, left arm pain, lightheadedness, palpitations, PND, syncope, others Gastrointestinal: denies: abdomen distended, abdominal pain, blood streaked bowels, constipated, diarrhea, dysphagia, difficulty swallowing, hematemesis, melena, nausea, poor appetite, poor fluid intake, rectal bleeding, rectal pain, vomiting, others Genitourinary: denies: burning, dysuria, flank pain, frequency, hematuria, incontinence, penile discharge, penile sore, pain, testicle pain, testicle swelling, urgency, others Neurological: denies: dizziness, fainting, headache, left sided numbness, left sided weakness, numbness, paresthesia, pre-existing deficit, right sided numbness, right sided weakness, seizure, speech problems, tingling, tremors, weakness, others Musculoskeletal: denies: back pain, gout, joint pain, joint swelling, muscle pain, muscle stiffness, neck pain, others Integumetry: denies: bruises, change in color, change in hair/nails, dryness, laceration, lesions, lumps, rash, wounds, others Allergic/Immunocompromised: denies: Difficulty Healing, Frequent Infections, Hives, Itching, others Hematologic/Lymphatic: denies: anemia, blood clots, easy bleeding, easy bruising, swollen glands, others Endocrine: denies: excessive hunger, excessive sweating, excessive thirst, excessive urination, flushing, intolerance to cold, intolerance to heat, unexplained weight gain, unexplained weight loss, others Psychiatric: denies: anxiety, bipolar disorder, depression, hopeless, panic dis order, schizophrenia, sleepless, suicidal, others All Other Systems: Reviewed and Negative Physical Exam General Appearance: Mild Distress HEENT: Normal ENT Inspection, Pharynx Normal, TMs Normal Neck: Full Range of Motion, Non-Tender, Normal, Normal Inspection Respiratory: Chest Non-Tender, Lungs Clear, No Accessory Muscle Use, No Respiratory Distress, Normal Breath Sounds Cardiovascular: No Edema, No JVD, No Murmur, No Gallop, Normal Peripheral Pulses, Regular Rate/Rhythm Breast Exam: Deferred Gastrointestinal: No Organomegaly, Non Tender, No Pulsatile Mass, Normal Bowel Sounds, Soft Genitalia: Deferred Pelvic: Deferred Rectal: Deferred Extremities: No calf tenderness, Normal capillary refill, Normal inspection, Normal range of motion, Non-tender, No pedal edema Musculoskeletal : Apperance: Normal Neurologic: Alert, dexigraph operator II-XII nml as Tested, No Motor Deficits, Normal Affect, Normal Mood, No Sensory Deficits Cerebellar Function: Normal Reflexes: Normal Skin: Dry, Normal Color, Warm Lymphatic: No Adenopathy Was a procedure done? Was a procedure done?: No EKG EKG : Pulse Rate (adult): 64 [place]: Normal Cardiac Rhythm: NSR Block: None Hypertrophy: None ST: Normal Differential Dx Considerations may include: HYPERKALEMIA X-Ray, Labs, Meds, VS Vital Signs Date Time Temp Pulse Resp B/P (MAP) Pulse Ox O2 Delivery O2 Flow Rate FiO2 08/19/24 14:38 98.1 61 158/65 (96) 97 98.1 08/19/24 14:38 Room Air* 0 21 08/19/24 13:12 64 08/19/24 13:04 64 08/19/24 13:03 97.8 68 16 162/57 (92) 95 97.8 Lab Test 08/19/24 15:35 08/19/24 14:31 08/19/24 12:57 Range/Units Urine Color Light-yellow Yellow Urine Clarity Clear Clear Urine pH 6.5 5.0-9.0 Urine Specific [place] 1.013 1.001-1.035 Urine Protein Trace H Negative Urine Ketones Negative Negative Urine Blood Negative Negative /uL Urine Nitrite Negative Negative Urine Bilirubin Negative Negative Urine Urobilinogen Normal Negative mg/dL Urine Leukocyte Esterase Negative Negative /uL Urine RBC 3 0 - 3 /hpf Urine Microscopic WBC 1 0-3 /HPF Urine Squamous Epithelial Cells None seen <5 /hpf Urine Bacteria None seen None Seen /hpf Urine Mucus Few None Seen Urine Sperm Present None Seen /hpf Urine Glucose Trace Normal mg/dL POC Glucose 97 70-106 mg/dl White Blood Count 9.8 4.4-10.8 10^3/uL Red Blood Count 4.67 4.5-5.90 10^6/uL Hemoglobin 13.1 L 13.5-17.5 g/dL Hematocrit 39.7 L 41.0-53.0 % Mean Corpuscular Volume 85.0 80.0-100.0 fL Mean Corpuscular Hemoglobin 28.0 28.0-32.0 pg Mean Corpuscular Hemoglobin Concent 32.9 32.0-36.0 g/dL Red Cell Distribution Width 16.8 H 11.8-14.3 % Platelet Count 244 140-450 10^3/uL Mean Platelet Volume 8.5 6.9-10.8 fL Neutrophils (%) (Auto) 69.3 37.0-80.0 % Lymphocytes (%) (Auto) 17.9 10.0-50.0 % Monocytes (%) (Auto) 8.4 0.0-12.0 % Eosinophils (%) (Auto) 3.6 0.0-7.0 % Basophils (%) (Auto) 0.8 0.0-2.0 % Neutrophils # (Auto) 6.8 1.6-8.6 10 ^3/uL Lymphocytes # (Auto) 1.7 0.4-5.4 10 ^3/uL Monocytes # (Auto) 0.8 0-1.3 10 ^3/uL Eosinophils # (Auto) 0.4 0-0.8 10 ^3/uL Basophils # (Auto) 0.1 0-0.2 10 ^3/uL Nucleated Red Blood Cells 0.0 % Sodium Level 137 136-145 mmol/L Potassium Level 5.7 *H 3.5-5.1 mmol/L Chloride Level 107 98-107 mmol/L Carbon Dioxide Level 21 20-31 mmol/L Anion Gap 9 5-15 Blood Urea Nitrogen 28 H 9-23 mg/dL Creatinine 1.49 H 0.700-1.30 mg/dL Glomerular Filtration Rate Calc 47 >90 mL/min BUN/Creatinine Ratio 18.8 10.0-20.0 Serum Glucose 117 H 74-106 mg/dL Calcium Level 9.5 8.7-10.4 mg/dL Current Medications Medications (Trade) Dose Ordered Sig/Destiney Route Start Time Stop Time Status Last Admin Sodium Bicarbonate 50 ml ONCE ONCE IV 08/19/24 13:45 08/19/24 13:46 DC 08/19/24 14:35 Calcium Gluconate/ Sodium Chloride 50 ml @ 100 mls/hr ONCE ONCE IV 08/19/24 13:45 08/19/24 14:14 DC 08/19/24 14:45 Insulin Human Regular (InsuLIN R) 5 units ONCE ONCE IV 08/19/24 13:45 08/19/24 13:46 DC 08/19/24 14:40 Dextrose 50 ml ONCE ONCE IV 08/19/24 13:45 08/19/24 13:46 DC 08/19/24 14:39 IV Hep-Lock was established The patient's CBC is within normal limits The chemistry panel shows hyperkalemia at 5.7 with a BUN of 28 and a creatinine of 1.49 The patient was given sodium bicarbonate because of the hyperkalemia The patient was given calcium, insulin and dextrose IV push We are going to admit the patient with hyperkalemia and acute renal failure The patient understands but is now stating that he may want to sign out AMA We have explained to him that he needs to stay because his potassium is two elevated Time of 1ST Reevaluation: 13:15 Reevaluation 1ST: Unchanged Patient Education/Counseling: Diagnosis, Treatment, Prognosis Family Education/Counseling: No Family Present Departure 1 Departure Time of Disposition: 16:39 Impression: Primary Impression: Hyperkalemia Additional Impression: Acute renal failure Qualified Codes: N17.1 - Acute kidney failure with acute cortical necrosis Disposition: 09 ADMITTED INPATIENT [facility]mit to: [facility] Condition: Fair Critical Care Note Critical Care Time?: Yes (35 min-critical care time only) Stability Stability form required: Yes Unstable for transfer: Telemetry monitoring (Telemetry monitoring required), ED Physician Assesment (Clinical assesment) Heart Score Heart Score: Heart Score Response (Comments) Value History N/A 0 EKG N/A 0 Age N/A 0 Risk Factors N/A 0 Troponin N/A 0 Total 0 I personally scribed for MATTHIEU ESCOBAR MD ([email or web address]) on 08/19/24 at 12:54. Electronically submitted by Lidia Cross ([email or web address]). I personally scribed for MATTHIEU ESCOBAR MD ([email or web address]) on 08/19/24 at 12:56. Electronically submitted by Lidia Cross ([email or web address]). I personally scribed for MATTHIEU ESCOBAR MD ([email or web address]) on 08/19/24 at 13:12. Electronically submitted by Lidia Cross ([email or web address]). MATTHIEU ESCOBAR MD August 19, 2024 12:54
--- NOTE | 2024-08-19 13:09 | ECG ---
[facility] Test Date: 2024-08-19 Test Time: 13:04:13 Pat Name: FRANCO JAEGER Department: ER Room: Gender: M Shoemaking Cutter: FRANCA : 1945 Requested By: MATTHIEU ESCOBAR Order Number: [id number] Reading MD: Danilo Vásquez Measurements Intervals [place] Rate: 64 P: 67 NC: 168 QRS: 80 QRSD: 103 T: 60 QT: 420 QTc: 434 Interpretive Statements Sinus rhythm Electronically Signed On 08-19-2024 13:53:42 PDT by Danilo Vásquez Please click the below link to view image of tracing.
[2024-08-19 13:22] LABS: Basophils # (auto) 0.1 10 ^3/uL (0-0.2); Basophils % (auto) 0.8 % (0.0-2.0); Eosinophils # (auto) 0.4 10 ^3/uL (0-0.8); Eosinophils % (auto) 3.6 % (0.0-7.0); Hematocrit 39.7 % (41.0-53.0); Hemoglobin 13.1 g/dL (13.5-17.5); Lymphocytes # (auto) 1.7 10 ^3/uL (0.4-5.4); Lymphocytes % (auto) 17.9 % (10.0-50.0); Mean Corpuscular Hgb Conc. 32.9 g/dL (32.0-36.0); Monocytes # (auto) 0.8 10 ^3/uL (0-1.3); Monocytes % (auto) 8.4 % (0.0-12.0); Neutrophils # (auto) 6.8 10 ^3/uL (1.6-8.6); Neutrophils % (auto) 69.3 % (37.0-80.0); Platelet Count (auto) 244 10^3/uL (140-450); Red Blood Cells 4.67 10^6/uL (4.5-5.90); Red Cell Distribution Width 16.8 % (11.8-14.3); White Blood Cell 9.8 10^3/uL (4.4-10.8)
[2024-08-19 13:32] LABS: Sodium 137 mmol/L (136-145)
[2024-08-19 13:33] LABS: Anion Gap 9 (5-15); Calcium 9.5 mg/dL (8.7-10.4); Carbon Dioxide 21 mmol/L (20-31)
[2024-08-19 13:38] LABS: BUN/Creatinine Ratio 18.8 (10.0-20.0)
[2024-08-19 13:39] LABS: Blood Urea Nitrogen 28 mg/dL (9-23); Chloride 107 mmol/L (98-107); Glucose 117 mg/dL (74-106)
[2024-08-19 13:41] LABS: Potassium 5.7 mmol/L (3.5-5.1)
[2024-08-19] MEDS: SODIUM BICARB 8.4% 50Meq/50ml SYR Vial IV ONE (14:35)
[2024-08-19] MEDS: DEXTROSE (50%) 50ML SYRG IV ONE (14:39)
[2024-08-19] MEDS: InsuLIN REG 1unit/0.01ml Soln (100units/ml) IV ONE (14:40)
[2024-08-19] MEDS: CALCIUM GLUC 1,000mg/50ml-NS 50 ML IV ONE (14:45)
[2024-08-19 15:46] LABS: Urine Bacteria None Seen /hpf (None Seen)
[2024-08-19 16:01] LABS: Urine Blood Negative /uL (Negative); Urine Clarity Clear (Clear); Urine Color Light-Yellow (Yellow); Urine Mucus FEW (None Seen); Urine Protein, UAD TRACE (Negative); Urine Specific Gravity 1.013 (1.001-1.035); Urine Sperm PRESENT /hpf (None Seen); Urine Squamous Epithelial Cell None Seen /hpf (<5); Urine Urobilinogen Normal (Negative); Urine WBC 1 /HPF (0-3); Urine pH 6.5 (5.0-9.0)
[2024-08-19] MEDS ORDERED: MORPHINE SULFATE INJ 2 MG/ml SYRG IV PRN (17:00)
[2024-08-19] MEDS ORDERED: NITROGLYCERIN 0.4 MG SL TAB SL PRN (17:00)
--- NOTE | 2024-08-19 17:36 | DVHHPRES ---
History of Present Illness Resident Creating Document: NORMA RON RESIDENT Reason for Visit: Abnormal Lab History of Present Illness Mike, an 79-year-old male with a history of hypertension, borderline diabetes, COPD, and past heart failure, presents with elevated potassium levels requiring admission for management and further evaluation.He mentions a history of kidney disease diagnosed about two months ago. [facility] his blood pressure and blood work. Approximately one month ago, his potassium levels were found to be high, but subsequent testing two weeks later showed improvement. However, his potassium has since increased aga in, prompting the current admission. He quit smoking 4 months ago after a history of intermittent smoking over his lifetime, totaling about 6-7 years. He attributes his COPD partly to secondhand smoke exposure from his late . Mike also reports a history of alcohol consumption, primarily beer, but states he quit completely 4 months ago. He denies any recreational drug use. Past Medical History - Chronic kidney disease - COPD - Borderline diabetes - Heart failure - Hypertension Medications and Supplements - Nifedipine 90 mg daily - Hydralazine 25 mg - Inhaler for COPD - Uses 1-3 times per week - Atorvastatin - Aspirin Past Social History - Substance Use: Former smoker (6-7 years total, intermittent use); quit alcohol 4 months ago (previously drank beer); no recreational drug use - Living Situation: Lives alone with two dogs - Social Support: Has a son Review of Systems Review of Systems Review of Systems General: Negative for fever, chills, fatigue. Respiratory: Negative for shortness of breath. Cardiovascular: Negative for dizziness. Neurological: Negative for dizziness. Allergies: Coded Allergies: NO KNOWN ALLERGIES (Unverified , 02/27/12) Medications Current Medications Medications Dose Ordered Sig/Destiney Route Start Time Stop Time Status Last Admin Dose Admin Sodium Chloride 10 ml Q8HR IV 08/19/24 22:00 Nitroglycerin 0.4 mg Q5MINP PRN SL 08/19/24 17:00 Morphine Sulfate 2 mg Q30M PRN IV 08/19/24 17:00 Exam Vital Signs Vital Signs Date Time Temp Pulse Resp B/P (MAP) Pulse Ox O2 Delivery O2 Flow Rate FiO2 08/19/24 14:38 98.1 61 158/65 (96) 97 98.1 08/19/24 14:38 Room Air* 0 21 08/19/24 13:03 16 Exam GENERAL: Not in acute distress. HEENT: EOMI, Moist mucous membranes. No scleral icterus. No cervical lymphadenopathy. LUNGS: Clear to auscultation bilaterally. No accessory muscle use. CARDIOVASCULAR: Regular rate and rhythm. No murmur. No JVD. ABDOMEN: Soft, nontender and nondistended. No palpable masses. EXTREMITIES: Mild B/L LE edema. SKIN: No rashes or lesions. Warm. NEUROLOGIC: Alert and oriented X3 Labs/Xrays Labs Test 08/19/24 15:35 08/19/24 14:31 08/19/24 12:57 Range/Units Urine Color Light-yellow Yellow Urine Clarity Clear Clear Urine pH 6.5 5.0-9.0 Urine Specific [place] 1.013 1.001-1.035 Urine Protein Trace H Negative Urine Ketones Negative Negative Urine Blood Negative Negative /uL Urine Nitrite Negative Negative Urine Bilirubin Negative Negative Urine Urobilinogen Normal Negative mg/dL Urine Leukocyte Esterase Negative Negative /uL Urine RBC 3 0 - 3 /hpf Urine Microscopic WBC 1 0-3 /HPF Urine Squamous Epithelial Cells None seen <5 /hpf Urine Bacteria None seen None Seen /hpf Urine Mucus Few None Seen Urine Sperm Present None Seen /hpf Urine Glucose Trace Normal mg/dL POC Glucose 97 70-106 mg/dl White Blood Count 9.8 4.4-10.8 10^3/uL Red Blood Count 4.67 4.5-5.90 10^6/uL Hemoglobin 13.1 L 13.5-17.5 g/dL Hematocrit 39.7 L 41.0-53.0 % Mean Corpuscular Volume 85.0 80.0-100.0 fL Mean Corpuscular Hemoglobin 28.0 28.0-32.0 pg Mean Corpuscular Hemoglobin Concent 32.9 32.0-36.0 g/dL Red Cell Distribution Width 16.8 H 11.8-14.3 % Platelet Count 244 140-450 10^3/uL Mean Platelet Volume 8.5 6.9-10.8 fL Neutrophils (%) (Auto) 69.3 37.0-80.0 % Lymphocytes (%) (Auto) 17.9 10.0-50.0 % Monocytes (%) (Auto) 8.4 0.0-12.0 % Eosinophils (%) (Auto) 3.6 0.0-7.0 % Basophils (%) (Auto) 0.8 0.0-2.0 % Neutrophils # (Auto) 6.8 1.6-8.6 10 ^3/uL Lymphocytes # (Auto) 1.7 0.4-5.4 10 ^3/uL Monocytes # (Auto) 0.8 0-1.3 10 ^3/uL Eosinophils # (Auto) 0.4 0-0.8 10 ^3/uL Basophils # (Auto) 0.1 0-0.2 10 ^3/uL Nucleated Red Blood Cells 0.0 % Sodium Level 137 136-145 mmol/L Potassium Level 5.7 *H 3.5-5.1 mmol/L Chloride Level 107 98-107 mmol/L Carbon Dioxide Level 21 20-31 mmol/L Anion Gap 9 5-15 Blood Urea Nitrogen 28 H 9-23 mg/dL Creatinine 1.49 H 0.700-1.30 mg/dL Glomerular Filtration Rate Calc 47 >90 mL/min BUN/Creatinine Ratio 18.8 10.0-20.0 Serum Glucose 117 H 74-106 mg/dL Calcium Level 9.5 8.7-10.4 mg/dL Assessment/Plan Assessment/Plan # Hyperkalemia # TIARRA on CKD likely due to hemodynamic mediated # Hypertensive heart disease # H/o Heart failure with preserved ejection fraction # COPD, not exacerbation # Borderline Diabetes, HbA1C 5.9 - Admit patient for close monitoring and management of hyperkalemia - hyperkalemia protocol already started - Administer Lokelma (sodium zirconium cyclosilicate) to reduce potassium levels - Monitor potassium levels every 4 hours - Discontinue any medications that may contribute to hyperkalemia (already discontinued lisinopril) - Order echocardiogram to assess current cardiac function and ejection fraction - Order ultrasound of kidneys - Continue nifedipine 90 mg daily - Continue hydralazine 25 mg - Monitor blood pressure - Monitor blood glucose levels Goal of care discussed with patient for more than 36 minutes: DNR, DNI Case discussed with the Dr. Chowdhury Plan discussed with: Patient My Orders Orders - NORMA RON RESIDENT Procedure Category Date Status Time Admit ADMIT 08/19/24 Transmitted 16:59 Code Status CODE 08/19/24 Transmitted 16:59 Sodium Chloride Lock PHA 08/19/24 In Process (Saline Lock Ns) 22:00 Complete Blood Count LAB 08/20/24 Verified 04:00 Comprehensive LAB 08/20/24 Verified Metabolic Panel 04:00 Cardiac DIET 08/19/24 Transmitted Diet-2gna,Lofat,Lochol Dinner Echo 2d Mode Cardiac US 08/19/24 Logged DOP 16:59 Nitroglycerin PHA 08/19/24 In Process Sublingual (Ntrostat 17:00 Morphine Sulfate PHA 08/19/24 In Process Injection 17:00 Notify Of Changes JULI 08/19/24 In Process From Base 16:59 Senior Loan Officer For JULI 08/19/24 In Process 24 Hours 16:59 Emergency Dysrhythmia JULI 08/19/24 In Process Protocol 16:59 Rhythm Strips Once JULI 08/19/24 In Process Every Shift 16:59 Basic Metabolic Panel LAB 08/19/24 Logged 19:40 Chest Portable XY 08/19/24 Taken 17:16 B-Type Natriuretic LAB 08/19/24 In Process Peptide 17:17 Hemoglobin A1c LAB 08/19/24 In Process 17:25 Thyroid Stimulating LAB 08/19/24 In Process Hormone 17:25 Vitamin D, 25-Hydroxy LAB 08/19/24 In Process 17:25 Date of Service: August 19, 2024 Billing Provider: EDWARD CHOWDHURY MD Common Visit Codes: [id number] INP/OBS CARE (HIGH) NORMA RON RESIDENT August 19, 2024 17:36 EDWARD CHOWDHURY MD August 25, 2024 09:03
[2024-08-19] MEDS: SODIUM ZIRCONIUM CYCL 10 GM PAK PO ONE (17:42)
--- NOTE | 2024-08-19 17:49 | DVH ---
INDICATION: SOB TECHNIQUE: Frontal view of the chest. COMPARISON: CHEST PORTABLE on DOS: 05/27/22, CXRP on DOS: 05/27/22, CHEST PORTABLE on DOS: 05/13/22, CXRP on DOS: 05/13/22, CHEST PORTABLE on DOS: 04/10/21 FINDINGS: Findings:. The heart mildly enlarged. Uncoiling atherosclerotic change thoracic aorta. The mediastina l contours are grossly unremarkable. There is no evidence of pleural disease. The lungs are clear. The bony structures of the chest are intact without fracture. IMPRESSION: 1. No evidence of acute disease. Mild cardiomegaly
[2024-08-19 19:55] LABS: Anion Gap 9 (5-15); Calcium 8.8 mg/dL (8.7-10.4); Carbon Dioxide 23 mmol/L (20-31); Chloride 107 mmol/L (98-107); Potassium 4.8 mmol/L (3.5-5.1); Sodium 139 mmol/L (136-145)
[2024-08-19 19:59] VITALS: PULSE 63; RESP 19; O2SAT 96
[2024-08-19 20:01] LABS: BUN/Creatinine Ratio 18.4 (10.0-20.0)
[2024-08-19 20:02] LABS: Blood Urea Nitrogen 28 mg/dL (9-23); Glucose 145 mg/dL (74-106)
[2024-08-19] MEDS: traZODone HCL 50 MG TAB PO SCH (22:09)
[2024-08-19] MEDS: SODIUM CHLOR 0.9% PF (SALINE LOCK) 10ML VIAL/SYR IV SCH (22:09)
[2024-08-20] VITALS (9 sets, daily range): BP systolic 140–169; BP diastolic 54–96; PULSE 56–69; RESP 16–18; TEMP 97.5–98.3; O2SAT 94–97
[2024-08-20] MEDS ORDERED: HYDR50TA47 PO (00:56)
[2024-08-20] MEDS ORDERED: ATOR40TA52 PO (01:48)
[2024-08-20] MEDS ORDERED: TRAZ-227 PO (01:48)
[2024-08-20 06:33] LABS: Basophils # (auto) 0.1 10 ^3/uL (0-0.2); Basophils % (auto) 0.7 % (0.0-2.0); Eosinophils # (auto) 0.2 10 ^3/uL (0-0.8); Eosinophils % (auto) 2.4 % (0.0-7.0); Hematocrit 37.7 % (41.0-53.0); Hemoglobin 12.4 g/dL (13.5-17.5); Lymphocytes # (auto) 1.4 10 ^3/uL (0.4-5.4); Lymphocytes % (auto) 16.7 % (10.0-50.0); Mean Corpuscular Hemoglobin 27.7 pg (28.0-32.0); Mean Corpuscular Hgb Conc. 32.8 g/dL (32.0-36.0); Mean Corpuscular Volume 84.6 fL (80.0-100.0); Monocytes # (auto) 0.7 10 ^3/uL (0-1.3); Monocytes % (auto) 9.1 % (0.0-12.0); Neutrophils # (auto) 5.8 10 ^3/uL (1.6-8.6); Neutrophils % (auto) 71.1 % (37.0-80.0); Nucleated Red Blood Cells % 0.1 %; Platelet Count (auto) 224 10^3/uL (140-450); Red Blood Cells 4.46 10^6/uL (4.5-5.90); Red Cell Distribution Width 16.3 % (11.8-14.3); White Blood Cell 8.1 10^3/uL (4.4-10.8)
[2024-08-20 06:56] LABS: Alanine Aminotransferase 14 U/L (7-40); Albumin 4.2 g/dL (3.2-4.8); Alkaline Phosphatase 58 U/L (46-116); Anion Gap 9 (5-15); BUN/Creatinine Ratio 20.5 (10.0-20.0); Calcium 8.8 mg/dL (8.7-10.4); Carbon Dioxide 23 mmol/L (20-31); Glucose 97 mg/dL (74-106); Potassium 5.1 mmol/L (3.5-5.1); Sodium 140 mmol/L (136-145); Total Protein 6.7 g/dL (5.7-8.2)
[2024-08-20 06:57] LABS: Bilirubin, Total 0.4 mg/dL (0.2-1.0)
[2024-08-20 07:06] LABS: Aspartate Aminotransferase 12 U/L (13-40); Blood Urea Nitrogen 26 mg/dL (9-23); Chloride 108 mmol/L (98-107)
[2024-08-20] MEDS: NIFEdipine ER 30 MG TAB PO SCH (09:25)
[2024-08-20] MEDS ORDERED: PATIENTS OWN MEDICATION (Atorvastatin Calcium 1 TAB) PO SCH (10:00)
--- NOTE | 2024-08-20 11:08 | DVH ---
US KIDNEY HISTORY: TIARRA COMPARISON: None TECHNIQUE: Transverse and longitudinal grayscale and color doppler images were obtained of the kidney s and bladder. FINDINGS: Right kidney: Size: 11.4 cm Cortical thickness: Normal Echogenicity: Increased Stones: None Masses: 1.7 x 1.3 x 2.0 cm cyst. Hydronephrosis: None Ureters: Not well visualized. Other: None Left kidney: Size: 10.5 cm Cortical thickness: Normal Echogenicity: Increased Stones: None Masses: None Hydronephrosis: None Ureters: Not well visualized. Other: None Bladder: Normal Other: None. IMPRESSION: Echogenic renal cortices can be seen with medical renal disease.
--- NOTE | 2024-08-20 11:51 | DVHPNRES ---
Progress Note Date Seen: August 20, 2024 Resident Creating Document: NORMA RON RESIDENT Medical Necessity Reason Pt with a Central, PICC or Fol: No Subjective Review of Systems Patient seen and examined at bedside, no new complaints Objective vital signs Vital Sign Date Time Temp Pulse Resp B/P (MAP) Pulse Ox O2 Delivery O2 Flow Rate FiO2 08/20/24 09:25 169/71 08/20/24 09:00 97.7 56 16 97 97.7 08/20/24 00:19 Room Air* 0 21 Total Intake and Output 08/19/24 08/19/24 08/20/24 15:00 23:00 07:00 Intake Total 0 ml Balance 0 ml medications Current Medications Medications Dose Ordered Sig/Destiney Route Start Time Stop Time Status Last Admin Dose Admin Sodium Chloride 10 ml Q8HR IV 08/19/24 22:00 08/20/24 06:17 10 ML Nitroglycerin 0.4 mg Q5MINP PRN SL 08/19/24 17:00 Morphine Sulfate 2 mg Q30M PRN IV 08/19/24 17:00 Trazodone HCl 50 mg HS PO 08/19/24 22:00 08/19/24 22:09 50 MG Nifedipine 30 mg DAILY PO 08/20/24 10:00 08/20/24 09:25 30 MG Patient Own Medication 1 tab DAILY PO 08/20/24 10:00 UNV Patient Own Medication 1 tab TID PO 08/20/24 14:00 UNV Atorvastatin Calcium 40 mg HS PO 08/20/24 22:00 Hydralazine HCl 50 mg TID PO 08/20/24 14:00 Examination GENERAL: Not in acute distress. HEENT: EOMI, Moist mucous membranes. No scleral icterus. No cervical lymphadenopathy. LUNGS: Clear to auscultation bilaterally. No accessory muscle use. CARDIOVASCULAR: Regular rate and rhythm. No murmur. No JVD. ABDOMEN: Soft, nontender and nondistended. No palpable masses. EXTREMITIES: Mild B/L LE edema. SKIN: No rashes or lesions. Warm. NEUROLOGIC: Alert and oriented X3 laboratory and microbiology Laboratory Tests 08/20/24 06:06 Test 08/20/24 06:06 Range/Units Serum Glucose 97 74-106 mg/dL Problem List/Assessment/Plan Problem List/Assessment/Plan # Hyperkalemia - resolved # TIARRA on CKD likely due to hemodynamic mediated # Hypertensive heart disease # H/o Heart failure with preserved ejection fraction # COPD, not exacerbation # Borderline Diabetes, HbA1C 5.9 - Admit patient for close monitoring and management of hyperkalemia - hyperkalemia protocol already started - Administer Lokelma (sodium zirconium cyclosilicate) to reduce potassium levels - Monitor potassium level. - ordered kidney ultrasound, urine sodium, urine creatinine, urine osmolality. - Discontinue any medications that may contribute to hyperkalemia (already discontinued lisinopril) - Order echocardiogram to assess current cardiac function and ejection fraction - Order ultrasound of kidneys - Continue nifedipine 90 mg daily - Continue hydralazine 25 mg - Monitor blood pressure - Monitor blood glucose levels Goal of care discussed with patient for more than 27 minutes: DNR, DNI Case discussed with the Dr. Chowdhury Plan discussed with: Patient My Orders My Orders Orders - NORMA RON RESIDENT Procedure Category Date Status Time Admit ADMIT 08/19/24 Transmitted 16:59 Code Status CODE 08/19/24 Transmitted 16:59 Sodium Chloride Lock PHA 08/19/24 In Process (Saline Lock Ns) 22:00 Cardiac DIET 08/19/24 Transmitted Diet-2gna,Lofat,Lochol Dinner Nitroglycerin PHA 08/19/24 In Process Sublingual (Ntrostat 17:00 Morphine Sulfate PHA 08/19/24 In Process Injection 17:00 Notify Of Changes JULI 08/19/24 In Process From Base 16:59 Tube Cleaning Operator For JULI 08/19/24 In Process 24 Hours 16:59 Emergency Dysrhythmia JULI 08/19/24 In Process Protocol 16:59 Rhythm Strips Once JULI 08/19/24 In Process Every Shift 16:59 Chest Portable XY 08/19/24 Resulted 17:16 * Cardiac Cath Rn CONS 08/20/24 Transmitted Consult 01:45 Echo 2d Mode Cardiac US 08/20/24 Taken DOP 16:59 Nifedipine Er PHA 08/20/24 In Process (Procardia Xl 10:00 Atorvastatin (Lipitor) PHA 08/20/24 In Process 22:00 Hydralazine Hcl PHA 08/20/24 In Process Tablet (Apresoline 14:00 Kidney US 08/20/24 Resulted 09:38 Urine Creatinine LAB 08/20/24 Logged 09:38 Urine Sodium LAB 08/20/24 Logged 09:38 Urine LAB 08/20/24 Logged Protein/Creatinine 09:38 Urine Protein LAB 08/20/24 Logged 09:38 Osmolality Urine LAB 08/20/24 Logged 09:38 Drug Screen LAB 08/20/24 Logged 09:38 Date of Service: August 20, 2024 Billing Provider: EDWARD CHOWDHURY MD Common Visit Codes: [id number] INP/OBS CARE(HIGH) NORMA RON RESIDENT August 20, 2024 11:51 EDWARD CHOWDHURY MD August 25, 2024 12:37
[2024-08-20] MEDS: hydrALAZINE HCL 20 MG/ML VL IV ONE (12:10)
[2024-08-20] MEDS ORDERED: PATIENTS OWN MEDICATION (Hydralazine Hcl 1 TAB) PO SCH (14:00)
[2024-08-20] MEDS: hydrALAZINE HCL 25 MG TAB PO SCH (14:14)
[2024-08-20] MEDS: ATORVASTATIN 20 MG TAB PO SCH (20:58)
[2024-08-20] MEDS: ACETAMINOPHEN 325 MG TAB PO PRN (22:08)
--- NOTE | 2024-08-20 23:47 | DVHSR ---
APPROVED REPORT EXAM: Two-dimensional and M-mode echocardiogram with Doppler and color Doppler. Blood Pressure: 158/64 mmHg INDICATION Heart Failure RISK FACTORS Height: 5'9", Weight: 219 DIMENSIONS LVDd5.6 (3.8-5.7cm)LA (2D)4.9 (1.9-4.0cm)Aortic Root3.3 (2.0-3.7cm) LVDs3.8 (2.5-4.0cm)LA (MM) (1.9-4.0cm)Aortic Cusp Exc1.8 (1.5-2.0cm) EF (%) 59.0 (55-70%)Rt. Atrium4.3 (1.9-4.0cm)Asc. Aorta cm IVSd1.1 (0.7-1.1cm)RV (D)4.9 (1.8-2.4cm) PWd0.7 (0.7-1.1cm) Mitral Valve MitralMitral Stenosis E wave0.97m/sMV Mean GR.mmHg A wave0.80m/sMV Peak GR.mmHg E/A ratio1.22D MVAcm2 DECEL [id number] 1/2 Timems Aortic Valve Aortic ValveAortic Stenosis V11.01m/Kendall Mean GR.5mmHg V21.47m/Kendall Peak GR.9mmHg LVOT Diameter2.2 (1.8-2.4cm)Doppler AVA2.61cm2 Pulmonic Valve V20.95m/s Tricuspid Valve TR Velocity3.41m/s [id number] Other Information Quality : Technically LimitedRhythm : Technically limited study due to patient position. Conclusion Left ventricle is normal in size Left ventricular systolic function is preserve Ejection fraction is estimated at 60% There is mild mitral regurgitation There is [id number] tricuspid regurgitation There is mild pulmonary hypertension estimated at 48 mmHg There is no pericardial effusion
[2024-08-21 01:00] VITALS: BP 155/60; PULSE 63; RESP 16; TEMP 97.8; O2SAT 98
[2024-08-21 05:00] VITALS: BP 148/60; PULSE 61; RESP 18; TEMP 97.9; O2SAT 96
[2024-08-21 08:00] VITALS: PULSE 68; PULSE 70; RESP 18; O2SAT 98
[2024-08-21 09:00] VITALS: BP 148/73; PULSE 68; RESP 18; TEMP 97.5; O2SAT 98
[2024-08-21 09:20] LABS: Chloride 106 mmol/L (98-107); Potassium 4.8 mmol/L (3.5-5.1); Sodium 137 mmol/L (136-145)
[2024-08-21 09:21] LABS: Anion Gap 8 (5-15); Calcium 9.9 mg/dL (8.7-10.4); Carbon Dioxide 23 mmol/L (20-31)
[2024-08-21 09:27] LABS: Blood Urea Nitrogen 25 mg/dL (9-23); Glucose 118 mg/dL (74-106)
[2024-08-21 12:49] VITALS: BP 148/73; PULSE 64; RESP 18; TEMP 98; O2SAT 98
[2024-08-21] MEDS ORDERED: HYDR25TA4 PO (12:57)
[2024-08-21] MEDS ORDERED: HYDR50TA47 PO (12:57)
[2024-08-21] MEDS ORDERED: NIFE1TAB31 PO (12:57)
--- NOTE | 2024-08-21 18:49 | DVHDSRES ---
Discharge Summary Date of Admission Resident Creating Document: SIMON PEÑA RESIDENT August 19, 2024 at 16:59 Date of Discharge: August 21, 2024 Admitting Diagnosis # Hyperkalemia # TIARRA on CKD likely due to hemodynamic mediated # Hypertensive heart disease # H/o Heart failure with preserved ejection fraction # COPD, not exacerbation # Borderline Diabetes, HbA1C 5.9 Wounds: none Labs/Diagnostic Data: Laboratory Results Test 08/21/24 08:49 08/20/24 06:06 08/19/24 15:35 08/19/24 14:31 Sodium Level 137 mmol/L (136-145) Potassium Level 4.8 mmol/L (3.5-5.1) Chloride Level 106 mmol/L (98-107) Carbon Dioxide Level 23 mmol/L (20-31) Anion Gap 8 (5-15) Blood Urea Nitrogen 25 mg/dL (9-23) Creatinine 1.39 mg/dL (0.700-1.30) Glomerular Filtration Rate Calc 51 mL/min (>90) BUN/Creatinine Ratio 18.0 (10.0-20.0) Serum Glucose 118 mg/dL (74-106) Calcium Level 9.9 mg/dL (8.7-10.4) White Blood Count 8.1 10^3/uL (4.4-10.8) Red Blood Count 4.46 10^6/uL (4.5-5.90) Hemoglobin 12.4 g/dL (13.5-17.5) Hematocrit 37.7 % (41.0-53.0) Mean Corpuscular Volume 84.6 fL (80.0-100.0) Mean Corpuscular Hemoglobin 27.7 pg (28.0-32.0) Mean Corpuscular Hemoglobin Concent 32.8 g/dL (32.0-36.0) Red Cell Distribution Width 16.3 % (11.8-14.3) Platelet Count 224 10^3/uL (140-450) Mean Platelet Volume 8.3 fL (6.9-10.8) Neutrophils (%) (Auto) 71.1 % (37.0-80.0) Lymphocytes (%) (Auto) 16.7 % (10.0-50.0) Monocytes (%) (Auto) 9.1 % (0.0-12.0) Eosinophils (%) (Auto) 2.4 % (0.0-7.0) Basophils (%) (Auto) 0.7 % (0.0-2.0) Neutrophils # (Auto) 5.8 10 ^3/uL (1.6-8.6) Lymphocytes # (Auto) 1.4 10 ^3/uL (0.4-5.4) Monocytes # (Auto) 0.7 10 ^3/uL (0-1.3) Eosinophils # (Auto) 0.2 10 ^3/uL (0-0.8) Basophils # (Auto) 0.1 10 ^3/uL (0-0.2) Nucleated Red Blood Cells 0.1 % Magnesium Level 2.1 mg/dL (1.6-2.6) Total Bilirubin 0.4 mg/dL (0.2-1.0) Aspartate Amino Transferase (AST) 12 U/L (13-40) Alanine Aminotransferase (ALT) 14 U/L (7-40) Alkaline Phosphatase 58 U/L (46-116) Total Protein 6.7 g/dL (5.7-8.2) Albumin 4.2 g/dL (3.2-4.8) Urine Color Light-yellow (Yellow) Urine Clarity Clear (Clear) Urine pH 6.5 (5.0-9.0) Urine Specific [place] 1.013 (1.001-1.035) Urine Protein Trace (Negative) Urine Ketones Negative (Negative) Urine Blood Negative /uL (Negative) Urine Nitrite Negative (Negative) Urine Bilirubin Negative (Negative) Urine Urobilinogen Normal mg/dL (Negative) Urine Leukocyte Esterase Negative /uL (Negative) Urine RBC 3 /hpf (0 - 3) Urine Microscopic WBC 1 /HPF (0-3) Urine Squamous Epithelial Cells None seen /hpf (<5) Urine Bacteria None seen /hpf (None Seen) Urine Mucus Few (None Seen) Urine Sperm Present /hpf (None Seen) Urine Glucose Trace mg/dL (Normal) POC Glucose 97 mg/dl (70-106) Test 08/19/24 12:57 Hemoglobin A1c 5.9 % A1C (<5.7) B-Type Natriuretic Peptide 113.57 pg/mL (0-100) Vitamin D 25-Hydroxy 46.1 ng/mL (30.0-100) Thyroid Stimulating Hormone (TSH) 2.27 uIU/mL (0.55-4.78) Other Laboratory Tests 08/21/24 08:49 08/20/24 06:06 Brief Hx & Hospital Course: Patient is a 79-year-old male with a past medical history of hypertension, borderline diabetes, COPD, heart failure presented with the elevated potassium level. Has a history of kidney disease diagnosed about 2 months ago. Patient was admitted to telemetry for close monitoring and management of hyperkalemia with emergency hyperkalemia protocol with insulin, dextrose and Lokelma was given. Potassium levels were monitored every 12 hours which showed continued improvement. Patient also had hypertension in the hospital at home was taking nifedipine 30 mg t.i.d. and hydralazine 50 mg 3 times a day which were continued. Patient's potassium levels normalized and was discharged home on hydrochlorothiazide 25 mg daily and was advised to continue with the nifedipine 30 mg and stop hydralazine in the morning but continuing with the lunch and dinner. Patient was advised to follow up in the discharge clinic in 1 week to recheck the potassium levels. Consults/Reason for consult none Operations or Procedures none Condition at Discharge: Good Final Diagnosis/Problems List # Hyperkalemia - resolved # TIARRA on CKD likely due to VMN # Hypertensive heart disease # H/o Heart failure with preserved ejection fraction # COPD, not exacerbation # Borderline Diabetes, HbA1C 5.9 Discharge Disposition: Home Discharge Instruct/Medications Diet: Regular Diet comment: low potassium diet Activity: No Restrictions, As Tolerated Follow Up/Referral: Follow up in the discharge clininc in one week Follow up with the PCP in one week Medications: as per EMR Discharge Statement: "Patient was advised to return to the ER or call 911 if any headaches, dizziness, shortness of breath, chest pain, abdominal pain, bleeding, fevers, or worsening of medical condition. Patient was counseled about treatment plan, medications, possible side effects, patientverbalized understanding. All questions were answered to the best of my ability. This discharge took greater then 30 minutes in planning, reviewing documentation, counseling the patient, and discussing with other team members." ASSESSMENT ASSESSMENT Assessment # Hyperkalemia - resolved # TIARRA on CKD likely due to VMN # Hypertensive heart disease # H/o Heart failure with preserved ejection fraction # COPD, not exacerbation # Borderline Diabetes, HbA1C 5.9 Date of Service: August 21, 2024 Billing Provider: EDWARD CHOWDHURY MD Common Visit Codes: [id number] DISCH DAY >30min SIMON PEÑA RESIDENT August 21, 2024 18:49 EDWARD CHOWDHURY MD August 25, 2024 12:39
== END 2024-08-21 13:22 | disposition home or self-care (01) | DRG 640 ==
LOC: ER 12:22 → OVERFLOW 16:59 → TELE-WESTW 23:55
PROVIDERS: ADMIT Student in an Organized Health Care Education/Training Program; ATTEND Emergency Medicine
DX: E87.5 Hyperkalemia (principal); N17.1 Acute kidney failure with acute cortical necrosis; I13.0 Hypertensive heart and chronic kidney disease with heart failure and stage 1 through stage 4 chronic kidney disease, or unspecified chronic kidney disease; I50.32 Chronic diastolic (congestive) heart failure; J44.9 Chronic obstructive pulmonary disease, unspecified; N18.9 Chronic kidney disease, unspecified; E78.5 Hyperlipidemia, unspecified; M10.9 Gout, unspecified; R73.03 Prediabetes; Z87.891 Personal history of nicotine dependence; Z86.73 Personal history of transient ischemic attack (TIA), and cerebral infarction without residual deficits
CPT/HCPCS: 36415; 71045; 76775; 80048; 80053; 81001; 82306; 82962; 83036; 83735; 83880; 84443; 85025; 93005; 93306; 96365; 96375; 99291; G0378; J1815

== ENCOUNTER 2024-10-26 11:38 | Emergency (ER) | payer MEDICAID, MEDICARE, OTHER ==
[~2024-10-26] VITALS: Ht 177.8 cm; Wt 95.9 kg
[~2024-10-26 11:38] MED LIST changes: +ATOR40TA52 PO; -AUG875T PO; -COLC1CAP PO; +HYDR25TA4 PO; +HYDR50TA47 PO; -LISI40TA16 PO; -METH4PAK PO; +NIFE1TAB31 PO; -NIFE1TAB36 PO; +TRAZ-227 PO
--- NOTE | 2024-10-26 12:27 | ED.PDOC ---
History of Present Illness HPI Comments Patient is a 79-year-old male with a past medical history of arthritis, gout, CKD, hypertension presented to the ED with a chief complaint of bilateral lower back in. Patient reports he started to have bilateral lower back pain 3 days ago which was 4-5/10 in intensity, constant with intermittent episodes of i ncreased severity to 7-8/10, gets worsened when the patient walks and improves when he lies down, denied any radiation to the legs, no burning pain on urination, no fever or chills, no diarrhea or constipation, denied any fall /injury. Patient uses walker to ambulate. Chief Complaint: Flank Pain Time Seen by MD: 11:46 Primary Care Provider: [place] Reviewed Notes: Nurses Notes, Medications, Allergies Allergies: Coded Allergies: NO KNOWN ALLERGIES (Unverified , 02/27/12) Home Meds Active Scripts Nifedipine (Nifedipine Er) 30 Mg Tab, 30 MG PO DAILY for 14 Days, #28 TAB Prov:SIMON PEÑA RESIDENT 08/21/24 Hydrochlorothiazide (Hydrochlorothiazide) 25 Mg Tab, 25 MG PO DAILY for 14 Days, #14 TAB 0 Refills Prov:SIMON PEÑA 08/21/24 Hydralazine Hcl (Hydralazine Hcl) 50 Mg Tab, 1 TAB PO BIDLS for 14 Days, #28 TAB 5 Refills Prov:SIMON PEÑA RESIDENT 08/21/24 Aspirin (Aspirin Low Dose) 81 Mg Tab, 81 MG PO DAILY for 30 Days, #30 TAB 0 Refills Prov:SIMON PEÑA RESIDENT 04/30/24 Reported Medications Trazodone Hcl (Trazodone Hcl) 50 Mg Tab, 50 MG PO, TAB 08/20/24 Atorvastatin Calcium (ATORVASTATIN CALCIUM) 40 Mg Tab, 1 TAB PO DAILY, #30 TAB 5 Refills 08/20/24 Albuterol Sulfate (Albuterol Sulfate) 2 Mg Tab, 90 MCG INH, MG 04/19/21 Mode of Arrival: Ambulatory Past Medical History PAST MEDICAL HISTORY: Arthritis, CKF, COPD, Gout, High Lipids, HTN, TIA Surgical History: Denies all surgeries Family History Family History: Reviewed,noncontributory to illness Social History Smoker: Quit Greater Than 1 Year, Cigarettes, Less Than 1 Pack/Day Alcohol: Occasionally Drugs: Denies Drug Use Lives In: Home Constitutional: reports: fatigue EENTM: denies: blurred vision, double vision, ear bleeding, ear discharge, ear drainage, ear pain, ear ringing, eye pain, eye redness, hearing loss, mouth pain, mouth swelling, nasal discharge, nose bleeding, nose congestion, nose pain, photophobia, tearing, throat pain, throat swelling, voice changes, others Respiratory: denies: cough, hemoptysis, orthopnea, SOB at rest, shortness of breath, SOB with excertion, stridor, wheezing, others Cardiovascular: denies: chest pain, dizzy spells, diaphoresis, Dyspnea on exertion, edema, irregular heart beat, left arm pain, lightheadedness, palpitations, PND, syncope, others Gastrointestinal: denies: abdomen distended, abdominal pain, blood streaked bowels, constipated, diarrhea, dysphagia, difficulty swallowing, hematemesis, melena, nausea, poor appetite, poor fluid intake, rectal bleeding, rectal pain, vomiting, others Genitourinary: reports: flank pain; denies: burning, dysuria, frequency, hematuria, incontinence, penile discharge, penile sore, pain, testicle pain, testicle swelling, urgency, others Neurological: denies: dizziness, fainting, headache, left sided numbness, left sided weakness, numbness, paresthesia, pre-existing deficit, right sided numbness, right sided weakness, seizure, speech problems, tingling, tremors, weakness, others Musculoskeletal: reports: back pain Integumetry: denies: bruises, change in color, change in hair/nails, dryness, laceration, lesions, lumps, rash, wounds, others Allergic/Immunocompromised: denies: Difficulty Healing, Frequent Infections, Hives, Itching, others Hematologic/Lymphatic: denies: anemia, blood clots, easy bleeding, easy bruising, swollen glands, others Endocrine: denies: excessive hunger, excessive sweating, excessive thirst, excessive urination, flushing, intolerance to cold, intolerance to heat, unexplained weight gain, unexplained weight loss, others Psychiatric: denies: anxiety, bipolar disorder, depression, hopeless, panic disorder, schizophrenia, sleepless, suicidal, others Physical Exam General Appearance: Normal, Obese HEENT: PERRL/EOMI, Pharynx Normal Neck: Full Range of Motion, Non-Tender, Normal Inspection Respiratory: No Accessory Muscle Use, No Respiratory Distress, Normal Breath Sounds Cardiovascular: No Edema, No JVD, No Murmur, Regular Rate/Rhythm Breast Exam: Deferred Gastrointestinal: No Organomegaly, Non Tender, No Pulsatile Mass, Normal Bowel Sounds, Soft Genitalia: Deferred Pelvic: Deferred Rectal: Deferred Extremities: Normal inspection, Normal range of motion, Non-tender Neurologic: Alert, health center associate II-XII nml as Tested, No Motor Deficits, No Sensory Deficits Cerebellar Function: NOT DONE Reflexes: NOT DONE Skin: Dry, Normal Color Peripheral Pulses: 2+ dorsalis pedis (R), 2+ dorsalis pedis (L), 2+ Radial (R), 2+ Radial (L) Lymphatic: NOT DONE Was a procedure done? Was a procedure done?: No Differential Dx Considerations may include: osteoarthritis of hip joint, nephrolithiasis, ureteric calculus, gout X-Ray, Labs, Meds, VS Vital Signs Date Time Temp Pulse Resp B/P (MAP) Pulse Ox O2 Delivery O2 Flow Rate FiO2 10/26/24 16:12 59 18 138/49 (78) 99 10/26/24 12:45 81 17 94 Room Air* 0 21 10/26/24 12:45 98.6 81 17 136/81 (99) 94 98.6 10/26/24 12:04 98.2 70 17 138/64 (88) 95 98.2 Lab Test 10/26/24 12:53 10/26/24 12:13 Range/Units White Blood Count 11.0 H 4.4-10.8 10^3/uL Red Blood Count 4.74 4.5-5.90 10^6/uL Hemoglobin 12.9 L 13.5-17.5 g/dL Hematocrit 39.5 L 41.0-53.0 % Mean Corpuscular Volume 83.4 80.0-100.0 fL Mean Corpuscular Hemoglobin 27.2 L 28.0-32.0 pg Mean Corpuscular Hemoglobin Concent 32.7 32.0-36.0 g/dL Red Cell Distribution Width 16.6 H 11.8-14.3 % Platelet Count 293 140-450 10^3/uL Mean Platelet Volume 7.9 6.9-10.8 fL Neutrophils (%) (Auto) 74.4 37.0-80.0 % Lymphocytes (%) (Auto) 12.2 10.0-50.0 % Monocytes (%) (Auto) 9.4 0.0-12.0 % Eosinophils (%) (Auto) 3.4 0.0-7.0 % Basophils (%) (Auto) 0.6 0.0-2.0 % Neutrophils # (Auto) 8.2 1.6-8.6 10 ^3/uL Lymphocytes # (Auto) 1.3 0.4-5.4 10 ^3/uL Monocytes # (Auto) 1.0 0-1.3 10 ^3/uL Eosinophils # (Auto) 0.4 0-0.8 10 ^3/uL Basophils # (Auto) 0.1 0-0.2 10 ^3/uL Nucleated Red Blood Cells 0.1 % Sodium Level 138 136-145 mmol/L Potassium Level 4.5 3.5-5.1 mmol/L Chloride Level 104 98-107 mmol/L Carbon Dioxide Level 24 20-31 mmol/L Anion Gap 10 5-15 Blood Urea Nitrogen 30 H 9-23 mg/dL Creatinine 1.73 H 0.700-1.30 mg/dL Glomerular Filtration Rate Calc 39 >90 mL/min BUN/Creatinine Ratio 17.3 10.0-20.0 Serum Glucose 98 74-106 mg/dL Calcium Level 8.9 8.7-10.4 mg/dL Urine Color Yellow Yellow Urine Clarity Clear Clear Urine pH 5.5 5.0-9.0 Urine Specific [place] 1.019 1.001-1.035 Urine Protein Negative Negative Urine Ketones Negative Negative Urine Blood Negative Negative /uL Urine Nitrite Negative Negative Urine Bilirubin Negative Negative Urine Urobilinogen Normal Negative mg/dL Urine Leukocyte Esterase Negative Negative /uL Urine RBC 1 0 - 3 /hpf Urine Microscopic WBC 1 0-3 /HPF Urine Squamous Epithelial Cells Few <5 /hpf Urine Bacteria None seen None Seen /hpf Urine Hyaline Casts Few 0 - 2 /lpf Urine Mucus Few None Seen Urine Glucose Normal Normal mg/dL Current Medications Medications (Trade) Dose Ordered Sig/Destiney Route Start Time Stop Time Status Last Admin Ibuprofen (Motrin Tablet) 400 mg ONCE ONCE PO 10/26/24 12:30 10/26/24 12:31 DC 10/26/24 12:40 Sodium Chloride 500 ml @ 500 mls/hr Q1H ONCE IV 10/26/24 14:30 10/26/24 15:29 DC 10/26/24 14:30 Sodium Chloride 500 ml @ 500 mls/hr Q1H ONCE IV 10/26/24 18:15 10/26/24 19:14 DC 10/26/24 18:26 79-year-old male with a past medical history of CKD, hypertension, gout, arthritis presented to the ED with a chief complaint of bilateral lower back pain. Patient does not report of pain radiating down the legs, no abdominal pain, no burning urination, no constipation or diarrhea. On physical examination bilateral dorsalis pedis pulses were diminished and suspecting peripheral artery disease patient was ordered CT abdomen pelvis with the IV contrast to visualize the aorta and iliac vessels along with a musculoskeletal abdomen to look for any kidney stones, ureteric stones. As the patient's kidney function was mildly reduced use given 500 mL of IV fluids. CT abdomen pelvis with IV contrast showed Moderate to severe thoracolumbar degenerative disc disease. 4 mm left lower lobe pulmonary nodule. Recommend follow-up per Fleischner society criteria. Bladder wall thickening. Abdominal aortic atherosclerotic disease Patient will need further inpatient management and will be admitted. addendum Patient left against medical advise. He was advised to make an appointment with his PCP to follow up for the degenerative disc disease and the chronic kidney disease. Time of 1ST Reevaluation: 14:51 (CT abdomen pelvis with IV contrast was ordered but at the patient had kidney function D arranged mildly use given 500 mL of IV fluid before the IV contrast was administered. Reported that the pain has decreased very mildly) Reevaluation 1ST: Unchanged Time of 2ND Reevaluation: 18:00 (Patient reports that the pain has improved) Reevaluation 2ND: Improved Patient Education/Counseling: Diagnosis, Treatment Family Education/Counseling: No Family Present SEPSIS Sepsis Screen Date sepsis recognized/suspect: Oct 26, 2024 Time Sepsis recognized/suspect: 1200 Recent Procedure: No On Antibiotic Therapy: No Respiratory Rate >20: No Heart Rate >90: No Temp<36 C (96.8 F) or >38.3 C: No SBP <90 or MAP <65 mmHG: No New Acute Mental Status Change: No Is the patient on CPAP, BIPAP,: No Physician Orders Ct Ab Pel With Iv Con Only (10/26/24 12:34) Vital Signs Date Time Temp Pulse Resp B/P (MAP) Pulse Ox O2 Delivery O2 Flow Rate FiO2 10/26/24 16:12 59 18 138/49 (78) 99 10/26/24 12:45 81 17 94 Room Air* 0 21 10/26/24 12:45 98.6 81 17 136/81 (99) 94 98.6 10/26/24 12:04 98.2 70 17 138/64 (88) 95 98.2 Laboratory Tests Test 10/26/24 12:53 White Blood Count 11.0 10^3/uL (4.4-10.8) H Medications Medications Dose Ordered Sig/Destiney Route Start Time Stop Time Status Last Admin Dose Admin Ibuprofen 400 mg ONCE ONCE PO 10/26/24 12:30 10/26/24 12:31 DC 10/26/24 12:40 Sodium Chloride 500 ml @ 500 mls/hr Q1H ONCE IV 10/26/24 14:30 10/26/24 15:29 DC 10/26/24 14:30 Sodium Chloride 500 ml @ 500 mls/hr Q1H ONCE IV 10/26/24 18:15 10/26/24 19:14 DC 10/26/24 18:26 Departure 1 Departure Time of Disposition: 18:49 Impression: Primary Impression: DDD (degenerative disc disease), thoracolumbar Additional Impression: Acute kidney injury superimposed on CKD Disposition: ADMITTED INPATIENT Condition: Stable Critical Care Note Critical Care Time?: No Stability Stability form required: No Heart Score Heart Score: Heart Score Response (Comments) Value History N/A 0 EKG N/A 0 Age N/A 0 Risk Factors N/A 0 Troponin N/A 0 Total 0 SIMON PEÑA RESIDENT Oct 26, 2024 12:26
[2024-10-26] MEDS: IBUPROFEN 400 MG TAB PO ONE (12:40)
[2024-10-26 12:45] VITALS: PULSE 81; RESP 17; TEMP 98.6; O2SAT 94
[2024-10-26 13:07] LABS: Hematocrit 39.5 % (41.0-53.0); Hemoglobin 12.9 g/dL (13.5-17.5); Mean Corpuscular Hemoglobin 27.2 pg (28.0-32.0); Mean Corpuscular Volume 83.4 fL (80.0-100.0); Nucleated Red Blood Cells % 0.1 %
[2024-10-26 13:15] LABS: Chloride 104 mmol/L (98-107); Potassium 4.5 mmol/L (3.5-5.1); Sodium 138 mmol/L (136-145)
[2024-10-26 13:16] LABS: Anion Gap 10 (5-15); Calcium 8.9 mg/dL (8.7-10.4); Carbon Dioxide 24 mmol/L (20-31)
[2024-10-26 13:21] LABS: BUN/Creatinine Ratio 17.3 (10.0-20.0); Glucose 98 mg/dL (74-106)
[2024-10-26 13:27] LABS: Blood Urea Nitrogen 30 mg/dL (9-23)
[2024-10-26 13:32] LABS: Urine Protein, UAD Negative (Negative)
[2024-10-26] MEDS: SODIUM CHLORIDE 0.9% 500 ML IV ONE ×2 (14:30→18:26)
[2024-10-26 16:12] VITALS: BP 138/49; PULSE 59; RESP 18; O2SAT 99
[2024-10-26] MEDS: IOHEXOL 300 MG/ML 100ML BOTTLE IJ ONE (16:32)
--- NOTE | 2024-10-26 17:31 | DVH ---
Indication: b/l lower back pain, flank pain Technique: CT axial images of the abdomen and pelvis are obtained with intravenous contrast. Coronal and sagittal reformats were obtained. Radiation Dose Information: CTDI volume is 0.07 mGy. Dose-length product is 1008.95 mGy*cm Comparison: None FINDINGS: Lung bases demonstrate atelectasis. 4 mm left lower lobe pulmonary nodule. Adrenal glands, spleen and pancreas unremarkable. No enhancing hepatic lesion. 5 mm right hepatic lob e hypodensity, too small to characterize statistically likely osseous. No CT evidence for cholelithi asis. Kidneys demonstrate no hydronephrosis. Bilateral renal cysts. There is a right renal with peripheral calcification measuring 1.8 cm. Stomach partially distended. Small bowel loops are normal in caliber. Moderate volume stool in the colon. Normal appendix. Abdominal aortic atherosclerotic disease. Bladder partially distended. Bladder wall thickening No fr ee pelvic fluid. 1.5 cm right inguinal lymph node. 1.3 cm left inguinal lymph node. Moderate bilateral sacroiliac degenerative joint disease. Moderate to severe thoracolumbar degenerati ve disc disease and facet hypertrophic changes. Moderate to severe lumbar multilevel neural foraminal stenosis most pronounced at L4-5 and L5-S1. IMPRESSION: No hydronephrosis. Moderate to severe thoracolumbar degenerative disc disease. 4 mm left lower lobe pulmonary nodule. Recommend follow-up per Fleischner society criteria. Bladder wall thickening. Correlate for cystitis and other etiologies. Atherosclerotic disease. Other findings as described.
== END 2024-10-26 19:11 | disposition left against medical advice (07) ==
LOC: ER 11:40
DX: M51.35 Other intervertebral disc degeneration, thoracolumbar region (principal); N17.9 Acute kidney failure, unspecified; I12.9 Hypertensive chronic kidney disease with stage 1 through stage 4 chronic kidney disease, or unspecified chronic kidney disease; N18.9 Chronic kidney disease, unspecified; I70.90 Unspecified atherosclerosis; J44.9 Chronic obstructive pulmonary disease, unspecified; E78.5 Hyperlipidemia, unspecified; M19.90 Unspecified osteoarthritis, unspecified site; Z79.82 Long term (current) use of aspirin; Z79.899 Other long term (current) drug therapy; Z86.73 Personal history of transient ischemic attack (TIA), and cerebral infarction without residual deficits
CPT/HCPCS: 36415; 74177; 80048; 81001; 85025; 99285; J7040; Q9967

== ENCOUNTER 2024-12-22 11:31 | Emergency (ER) | payer OTHER, MEDICARE ==
[~2024-12-22] VITALS: Ht 175.3 cm; Wt 98.2 kg
--- NOTE | 2024-12-22 12:16 | ED.PDOC ---
Eye-HPI HPI Comments 79-year-old male presents to the ER with a chief complaint of pain to the right trapezius . Patient reports on having right sided pain for the past six days and has not been subsiding but worsening. Denies any other symptoms at the moment. Chief Complaint: Earache Time Seen by MD: 12:45 Primary Care Provider: JASMIN Reviewed Notes: Nurses Notes, Medications, Allergies Allergies: Coded Allergies: NO KNOWN ALLERGIES (Unverified , 02/27/12) Home Meds Active Scripts Nifedipine (Nifedipine Er) 30 Mg Tab, 30 MG PO DAILY for 14 Days, #28 TAB Prov:SIMON PEÑA 08/21/24 Hydrochlorothiazide (Hydrochlorothiazide) 25 Mg Tab, 25 MG PO DAILY for 14 Days, #14 TAB 0 Refills Prov:SIMON PEÑA 08/21/24 Hydralazine Hcl (Hydralazine Hcl) 50 Mg Tab, 1 TAB PO BIDLS for 14 Days, #28 TAB 5 Refills Prov:SIMON PEÑA 08/21/24 Aspirin (Aspirin Low Dose) 81 Mg Tab, 81 MG PO DAILY for 30 Days, #30 TAB 0 Refills Prov:SIMON PEÑA 04/30/24 Reported Medications Trazodone Hcl (Trazodone Hcl) 50 Mg Tab, 50 MG PO, TAB 08/20/24 Atorvastatin Calcium (ATORVASTATIN CALCIUM) 40 Mg Tab, 1 TAB PO DAILY, #30 TAB 5 Refills 08/20/24 Albuterol Sulfate (Albuterol Sulfate) 2 Mg Tab, 90 MCG INH, MG 04/19/21 Information Source: Patient Mode of Arrival: Ambulatory Timing: Days Duration: Since onset, Days Prehospital treatment: None Quality: Pain Lids: Normal Conjunctiva: Normal Cornea: Normal Pupils: Normal EOM: Normal Fundus: Normal Slit lamp exam: Normal Anterior chamber: Normal Mouth: Normal ENT Ear Exam: Normal, Normal, Normal Nose: Normal Sinuses: Normal Oropharynx: Normal Onset: Spontaneous Throat Exposed to: None History of: None Associated signs and symptoms: Ear Pain Past Medical History PAST MEDICAL HISTORY: Arthritis, CKF, COPD, Gout, High Lipids, HTN, TIA Surgical History: Denies all surgeries Family History Family History: Reviewed,noncontributory to illness, Unknown Social History Smoker: Unknown Alcohol: Unknown Drugs: Unknown Lives In: Home Constitutional: denies: chills, diaphoresis, fatigue, fever, malaise, sweats, weakness, others EENTM: reports: ear ringing; denies: blurred vision, double vision, ear bleeding, ear discharge, ear drainage, ear pain, eye pain, eye redness, hearing loss, mouth pain, mouth swelling, nasal discharge, nose bleeding, nose congestion, nose pain, photophobia, tearing, throat pain, throat swelling, voice changes, others Respiratory: denies: cough, hemoptysis, orthopnea, SOB at rest, shortness of breath, SOB with excertion, stridor, wheezing, others Cardiovascular: denies: chest pain, dizzy spells, diaphoresis, Dyspnea on exertion, edema, irregular heart beat, left arm pain, lightheadedness, palpitations, PND, syncope, others Gastrointestinal: denies: abdomen distended, abdominal pain, blood streaked bowels, constipated, diarrhea, dysphagia, difficulty swallowing, hematemesis, melena, nausea, poor appetite, poor fluid intake, rectal bleeding, rectal pain, vomiting, others Genitourinary: denies: burning, dysuria, flank pain, frequency, hematuria, incontinence, penile discharge, penile sore, pain, testicle pain, testicle swelling, urgency, others Neurological: denies: dizziness, fainting, headache, left sided numbness, left sided weakness, numbness, paresthesia, pre-existing deficit, right sided numbness, right sided weakness, seizure, speech problems, tingling, tremors, weakness, others Musculoskeletal: denies: back pain, gout, joint pain, joint swelling, muscle pain, muscle stiffness, neck pain, others Integumetry: denies: bruises, change in color, change in hair/nails, dryness, laceration, lesions, lumps, rash, wounds, others Allergic/Immunocompromised: denies: Difficulty Healing, Frequent Infections, Hives, Itching, others Hematologic/Lymphatic: denies: anemia, blood clots, easy bleeding, easy bruising, swollen glands, others Endocrine: denies: excessive hunger, excessive sweating, excessive thirst, excessive urination, flushing, intolerance to cold, intolerance to heat, unexplained weight gain, unexplained weight loss, others Psychiatric: denies: anxiety, bipolar disorder, depression, hopeless, panic disorder, schizophrenia, sleepless, suicidal, others All Other Systems: Reviewed and Negative Physical Exam General Appearance: No Apparent Distress, Normal HEENT: Normal ENT Inspection, Pharynx Normal, TMs Normal Neck: Full Range of Motion, Non-Tender, Normal, Normal Inspection Respiratory: Chest Non-Tender, Lungs Clear, No Accessory Muscle Use, No Respiratory Distress, Normal Breath Sounds Cardiovascular: No Edema, No JVD, No Murmur, No Gallop, Normal Peripheral Pulses, Regular Rate/Rhythm Breast Exam: Deferred Gastrointestinal: No Organomegaly, Non Tender, No Pulsatile Mass, Normal Bowel Sounds, Soft Genitalia: Deferred Pelvic: Deferred Rectal: Deferred Extremities: No calf tenderness, Normal capillary refill, Normal inspection, Normal range of motion, Non-tender, No pedal edema Musculoskeletal : Apperance: Normal Neurologic: Alert, cardiopulmonary supervisor II-XII nml as Tested, No Motor Deficits, Normal Affect, Normal Mood, No Sensory Deficits Cerebellar Function: Normal Reflexes: Normal Skin: Dry, Normal Color, Warm Lymphatic: No Adenopathy Was a procedure done? Was a procedure done?: No EENT DIFF Eye: Other X-Ray, Labs, Meds, VS Vital Signs Date Time Temp Pulse Resp B/P (MAP) Pulse Ox O2 Delivery O2 Flow Rate FiO2 12/22/24 11:36 98.6 17 17 149/33 96 98.6 X-Ray, Labs, Meds, VS Comment 79-year-old male presents to the ER with a chief complaint of an right trapezius pain Patient arrives alert and oriented, ABC's intact, afebrile, vital signs stable, saturating well in room air ED workup: Defer imaging and lab work for outpatient follow up at this time Disposition: Discharge. Strict return precautions discussed with the patient with full understanding. Supportive care advised (rest, ice, heat, NSAIDs, stretching exercises) Massage muscles with cold pack or ice for 20 minutes 4 times per day. Usually most useful if there is swelling during the first 48 hours Heating pad on the most painful area for 20 minutes to relieve muscle spasm Sleep and the most comfortable sleeping position (usually on the side with knees bent) Light stretching, no strenuous activity, avoid frequent bending, avoid carrying heavy objects Return precautions discussed including Any worsening symptoms Time of 1ST Reevaluation: 13:15 Reevaluation 1ST: Unchanged Patient Education/Counseling: Diagnosis, Treatment, Prognosis Family Education/Counseling: No Family Present SEPSIS Sepsis Screen Date sepsis recognized/suspect: Dec 22, 2024 Time Sepsis recognized/suspect: 1137 Recent Procedure: No On Antibiotic Therapy: No Respiratory Rate >20: No Heart Rate >90: No Temp<36 C (96.8 F) or >38.3 C: No SBP <90 or MAP <65 mmHG: No New Acute Mental Status Change: No Is the patient on CPAP, BIPAP,: Yes Vital Signs Date Time Temp Pulse Resp B/P (MAP) Pulse Ox O2 Delivery O2 Flow Rate FiO2 12/22/24 11:36 98.6 17 17 149/33 96 98.6 Departure 1 Departure Time of Disposition: 12:37 Impression: Primary Impression: Cervicalgia Disposition: HOME / SELF CARE / HOMELESS Condition: Stable e-Prescriptions Lidocaine (LIDODERM 5% TOPICAL PATCH) 1 Patch Ph 1 PATCH TOP DAILY for 30 Days, #30 PATCH 0 Refills Prov: NOELLE GARCIA NP 12/22/24 Discharged With: Self Critical Care Note Critical Care Time?: No Stability Stability form required: No Heart Score Heart Score: Heart Score Response (Comments) Value History N/A 0 EKG N/A 0 Age N/A 0 Risk Factors N/A 0 Troponin N/A 0 Total 0 I personally scribed for NOELLE GARCIA NP ([email or web address]) on 12/22/24 at 12:16. Electronically submitted by Damien Batista ([email or web address]). NOELLE GARCIA NP Dec 22, 2024 12:16
[2024-12-22] MEDS ORDERED: LIDO5DIS21 TOP (12:38)
[2024-12-22] MEDS: methylPREDNISolone SOD SUCC 125 MG/2 ML VL IM ONE (12:53)
[2024-12-22 13:30] VITALS: BP 144/59; PULSE 62; RESP 16; TEMP 98.6; O2SAT 97
== END 2024-12-22 13:32 | disposition home or self-care (01) ==
LOC: ER 11:31
DX: M54.2 Cervicalgia (principal); M25.511 Pain in right shoulder; I11.0 Hypertensive heart disease with heart failure; I50.9 Heart failure, unspecified; E78.5 Hyperlipidemia, unspecified; F17.200 Nicotine dependence, unspecified, uncomplicated; J44.9 Chronic obstructive pulmonary disease, unspecified; M19.90 Unspecified osteoarthritis, unspecified site; Z79.82 Long term (current) use of aspirin; Z79.899 Other long term (current) drug therapy; Z86.73 Personal history of transient ischemic attack (TIA), and cerebral infarction without residual deficits
CPT/HCPCS: 96372; 99283; J2919